=== PATIENT | female | born 1975 | race Caucasian/White ===

== ENCOUNTER 2020-06-02 17:05 | Outpatient (REF) | payer OTHER, SELFPAY ==
--- NOTE | 2020-06-02 17:12 | MM_ITS ---
EXAMINATION: MM BREAST SCREENING DIGITAL TOMOSYNTHESIS, BILATERAL CLINICAL INFORMATION: Screening. Asymptomatic. The lifetime risk of breast cancer based on the Tyrer-Cuzick Model is 30.5%. COMPARISON: Mammography: 04/16/2019 and studies dating back to 07/21/2011. TECHNIQUE: Digital breast tomosynthesis is performed in both the craniocaudal and mediolateral oblique views along with computer-aided detection (CAD). Synthesized 2D images are generated from the tomosynthesis. FINDINGS: The breasts are extremely dense, which lowers the sensitivity of mammography (ACR BI-RADS breast composition Category d). There is a stable parenchymal pattern of the left breast with no new abnormal dominant mass or suspicious grouping of microcalcifications. Within the upper outer aspect of the right breast approximately 14.0 cm from the nipple, there is a spiculated density for which further evaluation with spot compression film and possibly ultrasound is recommended. MM/MM tomosynthesis screening BI IMPRESSION: Suspicious spiculated right breast mass for further evaluation as described. ASSESSMENT: BI-RADS 0: Incomplete - Need Additional Imaging Evaluation RECOMMENDATION: 1. Additional views of the right breast 2. Targeted ultrasound if warranted after review of the additional views. 3. Radiology department staff will contact the patient for additional imaging. This patient's information was entered into a reminder system with a target due date for their next mammogram.
== END 2020-06-02 17:06 | disposition home or self-care (01) ==
LOC: HO.MAMMO 17:05
PROVIDERS: Visit Provider Internal Medicine
DX: Z12.31 Encounter for screening mammogram for malignant neoplasm of breast (principal)
CPT/HCPCS: 77063; 77067

== ENCOUNTER 2020-06-07 14:54 | Outpatient (REF) | payer OTHER, SELFPAY ==
--- NOTE | 2020-06-07 14:58 | MM_ITS ---
EXAMINATION: MM DIAGNOSTIC DIGITAL BREAST TOMOSYNTHESIS, RIGHT TARGETED RIGHT BREAST ULTRASOUND CLINICAL INFORMATION: Spiculated density upper outer quadrant. COMPARISON: Mammography: 06/02/2020 and studies dating back to 07/21/2011. TECHNIQUE: Digital breast tomosynthesis is performed. 2D images are generated from the tomosynthesis. The following views are obtained: Spot compression views right breast craniocaudal and mediolateral oblique projections. FINDINGS: The breasts are extremely dense, which lowers the sensitivity of mammography (ACR BI-RADS breast composition Category d). There is persistence of a spiculated density about the deep upper outer aspect of the right breast suspicious for possible radial scar versus sclerosing malignant process. Targeted ultrasound evaluation did not demonstrate any suspicious shadowing mass. At approximately 11 o'clock position 10 cm from nipple there is either a complex cyst or possible lymph node measuring 5 x 3 x 8 mm in size. No axillary lymphadenopathy is appreciated. Stereotactic-guided biopsy of the spiculated region is recommended. The above was discussed with the patient at time of study. Patient navigator contacted the referring provider's office with the above recommendation. MM/MM tomosynthesis added views R IMPRESSION: Suspicious right breast lesion upper outer quadrant for which stereotactic core biopsy is recommended since no definite ultrasound correlate was identified. With Tyrer-Cuzick Model value of 30.5% follow-up breast MRI may be of help in further evaluation. ASSESSMENT: BI-RADS 4: Suspicious RECOMMENDATION: Stereotactic core biopsy right breast lesion.
== END 2020-06-07 14:55 | disposition home or self-care (01) ==
LOC: HO.MAMMO 14:54
PROVIDERS: Visit Provider Internal Medicine
DX: N63.10 Unspecified lump in the right breast, unspecified quadrant (principal)
CPT/HCPCS: 76642; 77065

== ENCOUNTER 2020-06-15 09:21 | Outpatient (REF) | payer OTHER, SELFPAY ==
--- NOTE | 2020-06-15 09:27 | MM_ITS ---
EXAMINATION: STEREOTACTIC TOMOSYNTHESIS-GUIDED VACUUM-ASSISTED BREAST BIOPSY, RIGHT SPECIMEN RADIOGRAPH, RIGHT POST PROCEDURE DIGITAL MAMMOGRAM, RIGHT CLINICAL INFORMATION: Architectural distortion in the upper outer quadrant of the right breast posterior third. COMPARISON: Mammograms of 06/07/2020 and 06/02/2020. TECHNIQUE/PROCEDURE: Informed consent was obtained from the patient after discussion of the benefits, risks, and alternatives to biopsy today. Patient appeared to understand. Gave opportunity for questions. Patient signed consent form. BIOPSY TABLE: [employer] Biopsy System. LESION: Focal architectural distortion in the upper outer quadrant of the right breast, 15 cm from nipple. LOCAL ANESTHESIA: 5 mL 1% lidocaine; 10 mL 1% lidocaine with epinephrine. DERMATOTOMY: Single skin eliane dermatotomy performed. NEEDLE: [employer] 9-gauge vacuum assisted core biopsy device. APPROACH: Lateral medial TARGETING: Digital breast tomosynthesis used for targeting. CORES: 12. CLIP: [place] [employer] T-shaped marker. SPECIMEN RADIOGRAPH: Specimen radiograph is taken in separate room using digital mammography. POST PROCEDURE UNILATERAL DIGITAL MAMMOGRAM: The post biopsy mammogram is performed in separate room using separate digital mammography equipment from the biopsy procedure. 3-D tomosynthesis craniocaudal and mediolateral views are obtained. The breasts are heterogeneously dense, which may obscure small masses (breast composition category: c). The clip marker is in position. No gross hematoma. The patient tolerated the procedure well. No immediate complications. Home instructions reviewed with the patient. Final pathology results are pending. MM/MM stereotactic biopsy RT IMPRESSION: 1. Digital tomosynthesis-guided core biopsy right breast with clip placement. 2. Specimen radiograph taken and post procedure mammogram. There is satisfactory positioning of the biopsy clip. 3. Final pathology results pending. An addendum report will be issued.
== END 2020-06-15 09:22 | disposition home or self-care (01) ==
LOC: HO.MAMMO 09:21
PROVIDERS: Visit Provider Surgery
DX: D05.01 Lobular carcinoma in situ of right breast (principal)
CPT/HCPCS: 19283; 88305; 88342; A4648

== ENCOUNTER 2020-06-25 16:08 | Outpatient (REF) | payer OTHER, SELFPAY | END 2020-06-25 16:09 | disposition home or self-care (01) | LOC: HO.LNP 16:08 | PROVIDERS: Visit Provider Hospitalist | DX: Z20.828 Contact with and (suspected) exposure to other viral communicable diseases (principal) | CPT/HCPCS: U0003 ==

== ENCOUNTER 2020-06-30 06:59 | Day surgery (SDC) | payer OTHER, SELFPAY ==
[2020-06-24 19:39] VITALS: BMI 34.7
[2020-06-30] VITALS (8 sets, daily range): BP systolic 126–142; BP diastolic 82–93; PULSE 75–107; RESP 14–18; TEMP 36.2–36.7; O2SAT 95–96
[2020-06-30 07:35] LABS: UPreg QC Valid YES; Urine Pregnancy NEGATIVE (NEGATIVE)
[2020-06-30] MEDS: Lactated Ringers 1,000 ML 100 ML IVCONT (07:49)
[2020-06-30] MEDS: ceFAZolin Sodium/Dextrose,Iso 2 GM/50 ML PIGGYBACK IV (07:49)
--- NOTE | 2020-06-30 09:24 | P.CONAN_ITS ---
HPI - Anesthesia Eval Consult details Narrative: 44yo female patient here for Right breast biopsy with needle loca lization. PMFSH Past Medical History Medical History Anxiety Breast mass, right (2011) IBS (irritable bowel syndrome) Family History Family History Mother History of breast cancer Maternal Grandfather History of skin cancer Unknown History of breast cancer, Onset Age: 35 Family history of problems with anesthesia: No Surgical History Surgical History History of section History of dilatation and curettage (1999) History of tonsillectomy History of Problems with Anesthesia: No Social History Social History Alcohol intake: never Smoking Status: Never smoker Second Hand Smoke Exposure: No Use of substances other than those prescribed or required for medical reasons: No Advance Directives: No Advance Directives Information Provided: No Advance Directives on File: No Recently lost weight without trying: No Meds Allergies Allergy/AdvReac Type Severity Reaction Status Date / Time sulfamethoxazole Allergy Severe Shakiness Verified 06/30/20 07:16 [From Bactrim] trimethoprim [From Bactrim] Allergy Severe Shakiness Verified 06/30/20 07:16 duloxetine [From CYMBALTA] Allergy Intermediate TONGUE Verified 06/30/20 07:16 SORES Influenza Virus Vaccines Allergy Intermediate ARM Verified 06/30/20 07:16 [INFLUENZA VIRUS VACCINES] SWELLING Sulfa (Sulfonamide Allergy Unknown shaky Verified 06/30/20 07:16 Antibiotics) feeling Influenza Vac Typ A&B Surf Allergy Unknown redness Uncoded 06/25/20 10:29 Ant Home Medications Medication Instructions Recorded Confirmed Type dicyclomine 10 mg capsule 10 mg PO DIRECTED 06/15/20 06/25/20 History venlafaxine 75 mg capsule,extended 75 mg PO DAILY 06/15/20 06/25/20 History release 24 hr Exam Exam Date and Time: June 30, 2020 0924 Height,Weight and Vital Signs: Height 5 ft 6 in Weight 97.522 kg Last Vital Signs Temp 98.1 F 06/30/20 07:36 Pulse 85 11/18/20 07:36 Resp 16 06/30/20 07:36 BP 136/93 H 06/30/20 07:36 Pulse Ox 96 06/30/20 07:36 Pertinent Lab Results Pertinent Lab Results: Laboratory Tests 06/30/20 07:15 Urine Test NEGATIVE Airway Mallampati Class: II TM Dist: >3cm Neck ROM: Full Loose/Missing/Broken Teeth: No Heart: RRR Lungs: CTAB Assessment and Plan Assessment Anesthesia Assessment: Anesthesia Plan Discussed and Chart Reviewed Final Anesthetic Review NPO: Yes ASA Class: II Final Preanesthetic Review: No Changes in Pt Med Stat, Consent Obtained/Reviewed and Anes Risks/Benef Reviewed Patient Risk: Low Procedure Risk: Low Anesthetic Plan Anesthetic Plan: GA Disposition: Standard PACU
--- NOTE | 2020-06-30 12:34 | W.PM.OPN ---
Operative Note Operative Note Date of Service: 06/30/20 Narrative: Peroperative Diagnosis: LCIS right breast Postoperative Diagnosis: Same Procedure: Right breast biopsy with needle localization Imaging Scheduler: Cici Pineda PA-C Anesthesia: General, Laryngeal Mask Specimen: Right breast tissue Estimated Blood Loss: 10 cc Immediate Complications: None Indications: Recent history of a spiculated density on mammograms. Core biopsy revealed LCIS. Open biopsy is planned for further assessment. Procedure in detail: With the patient in the supine position after induction of adequate general anesthesia, time-out procedure was performed. 2 g of cefazolin were infused for antibiotic prophylaxis. The right breast and surrounding skin were prepped with ChloraPrep and draped sterilely. The line for incision was marked in a transverse orientation extending through the needle insertion site at approximately the 9 o'clock position laterally. Skin and subcutaneous tissues were infiltrated with local anesthetic and for anesthetic infiltration was carried out into deeper tissues. Incision was made and was carried into the subcutaneous tissues. Skin flaps were raised circumferentially at a depth of about 1 cm and a core of tissue was excised around the needle and wire to beyond its tip. The specimen was marked for margins and was sent for re-x-ray. Re-x-ray revealed that the clip was contained in the specimen. The wound was copiously irrigated with saline solution and was inspected for bleeding. Bleeding was controlled using the electrosurgical pencil. The wound was then closed using interrupted sutures of 3 0 Polysorb to reapproximate the breast tissue and the subcutaneous tissues. Skin was closed using a running subcuticular suture of 4-0 Polysorb. Steri-Strips and dry sterile dressings were applied. She tolerated the procedure well and was transported to the recovery room in stable condition. There were no immediate complications.
--- NOTE | 2020-06-30 13:09 | HO.POSTANES ---
Post Anesthesia Evaluation Post Anesthesia Evaluation Vital Signs: Vital Signs Temp Pulse Resp BP Pulse Ox 06/30/20 12:50 97.1 F 80 18 135/88 96 06/30/20 12:36 83 18 142/93 H 95 06/30/20 12:21 75 16 127/82 95 06/30/20 12:06 76 16 127/89 95 06/30/20 12:01 83 14 136/90 H 96 06/30/20 11:56 91 16 126/92 H 96 06/30/20 11:51 97.1 F 107 H 14 142/85 H 95 06/30/20 07:36 98.1 F 85 16 136/93 H 96 Anesthesia: General LMA Mental Status: Awake Pain Control: Satisfactory Nausea/Vomiting: None Hydration: Adequate Anesthesia-Related Issues: No Anes. Related Issues
== END 2020-06-30 13:22 | disposition home or self-care (01) ==
PROVIDERS: Anesthesiology; PCP Internal Medicine; Visit Provider Surgery
DX: D05.01 Lobular carcinoma in situ of right breast (principal); Z80.3 Family history of malignant neoplasm of breast; R42 Dizziness and giddiness; Z88.2 Allergy status to sulfonamides; Z88.7 Allergy status to serum and vaccine; Z88.8 Allergy status to other drugs, medicaments and biological substances
CPT/HCPCS: 19101; 19281; 81025; 88307; 88329; A4648; J0690; J1100; J2250; J2405; J3010

== ENCOUNTER → 2020-07-06 09:28 | Outpatient (BNVA) | payer OTHER, SELFPAY | PROVIDERS: PCP Internal Medicine; Visit Provider Surgery | DX: Z76.89 Persons encountering health services in other specified circumstances (principal) ==

== ENCOUNTER 2020-11-30 11:33 | Outpatient (REF) | payer OTHER, SELFPAY | END 2020-11-30 11:34 | disposition home or self-care (01) | LOC: HO.HMGCLDS 11:33 | PROVIDERS: PCP Internal Medicine; Visit Provider Internal Medicine | DX: Z20.822 Contact with and (suspected) exposure to COVID-19 (principal) | CPT/HCPCS: C9803; U0003; U0005 ==

== ENCOUNTER 2020-12-02 14:20 | Outpatient (REF) | payer OTHER, SELFPAY ==
--- NOTE | ~2020-12-02 | MM_ITS ---
EXAMINATION: MM DIAGNOSTIC DIGITAL BREAST TOMOSYNTHESIS, RIGHT CLINICAL INFORMATION: Six-month follow up for excision of LCIS in June 2020. Since patient's last mammogram she has had breast reduction surgery. COMPARISON: Mammography: 06/30/2020 and studies dating back to 12/03/2013. TECHNIQUE: Digital breast tomosynthesis is performed in both the craniocaudal and mediolateral oblique views along with computer-aided detection (CAD). Synthesized 2D images are generated from the tomosynthesis. FINDINGS: The breasts are heterogeneously dense, which may obscure small masses (ACR BI-RADS breast composition Category c). There are regions of postsurgical change noted within the right breast. No abnormal dominant mass or suspicious grouping of microcalcifications identified. Results are provided to the patient at time of visit by the technologist. MM/MM tomosynthesis diagnostic RT IMPRESSION: Postsurgical change of the right breast with no specific findings to suggest malignancy. ASSESSMENT: BI-RADS 2: Benign. RECOMMENDATION: Routine annual mammography screening due in 12 months. This patient's information was entered into a reminder system with a target due date for their next mammogram.
== END 2020-12-02 14:21 | disposition home or self-care (01) ==
LOC: HO.MAMMO 14:20
PROVIDERS: PCP Internal Medicine; Visit Provider Surgery
DX: D05.01 Lobular carcinoma in situ of right breast (principal)
CPT/HCPCS: 77061; 77065

== ENCOUNTER → 2021-02-03 10:57 | Outpatient (BNVA) | payer OTHER, SELFPAY | PROVIDERS: PCP Internal Medicine; Referring Provider Internal Medicine; Visit Provider Surgery ==

== ENCOUNTER 2021-03-16 11:09 | Outpatient (REF) | payer OTHER, SELFPAY ==
[2021-03-16 14:28] LABS: Alanine Aminotransferase 14 U/L (0-31); Anion Gap 13 (12-20); Aspartate Amino Transferase 19 U/L (5-31); Blood Urea Nitrogen 12 mg/dL (9-16); Calcium 8.8 mg/dL (8.4-10.2); Carbon Dioxide 23 mmol/L (22-29); Chloride 107 mmol/L (96-108); Cholesterol 212 mg/dL; Estimated Glomerular Filt Rate > 60; Glucose Fasting 90 mg/dL (60-99); HDL Cholesterol 58 mg/dL; LDL Cholesterol Calculated 133 mg/dl; Potassium 4.5 mmol/L (3.3-5.1); Sodium 138 mmol/L (135-145); Triglycerides 105 mg/dL
[2021-03-16 14:50] LABS: TSH reflex Free T4 1.38 uIU/mL (0.32-4.0)
== END 2021-03-16 11:10 | disposition home or self-care (01) ==
LOC: HO.HMGCLDS 11:09
PROVIDERS: PCP Internal Medicine; Visit Provider Internal Medicine
DX: Z00.00 Encounter for general adult medical examination without abnormal findings (principal); G47.9 Sleep disorder, unspecified; I10 Essential (primary) hypertension
CPT/HCPCS: 36415; 80048; 80061; 84443; 84450; 84460

== ENCOUNTER 2021-04-22 12:37 | Outpatient (REF) | payer OTHER, SELFPAY ==
[2021-04-22 14:13] LABS: Appearance Urine CLEAR; Color Urine YELLOW; Glucose Urine UA NEG (NEG); Leukocyte Esterase Urine NEG (NEG); Nitrite Urine NEG (NEG); Specific Gravity - Urine >= 1.030 (1.005-1.025); UACC Culture Trigger NO; Urine Blood TRACE (NEG); Urine Ketones NEG (NEG); Urine Protein NEG (NEG-TRACE)
[2021-04-22 14:26] LABS: Bacteria Urine TRACE /LPF; Mucus Urine TRACE /LPF; RBC Urine 0-2 /HPF (0); Squamous Epithelial Cell Urine 1+ /LPF; WBC Urine 0 /HPF (0-4)
[2021-04-22 14:27] LABS: Hematocrit 41.3 % (37-47); Hemoglobin 13.5 g/dl (12.0-16.0); Mean Corpuscular HGB Conc 32.7 g/dl (31.0-35.0); Mean Corpuscular Hemoglobin 29.7 pg (27.0-33.0); Mean Platelet Volume 10.6 fL (9.4-12.3); Platelet Count 393 X10*3/uL (160-400); Red Blood Count 4.54 X10*6/uL (4.20-5.50); White Blood Count 8.5 X10*3/uL (4.8-10.8)
[2021-04-22 15:00] LABS: Blood Urea Nitrogen 11 mg/dL (9-16); Estimated Glomerular Filt Rate > 60
== END 2021-04-22 12:38 | disposition home or self-care (01) ==
LOC: HO.HMGCLDS 12:37
PROVIDERS: PCP Internal Medicine; Visit Provider Internal Medicine
DX: R10.31 Right lower quadrant pain (principal)
CPT/HCPCS: 36415; 81001; 82565; 84520; 85027

== ENCOUNTER 2021-04-27 14:41 | Outpatient (REF) | payer OTHER, SELFPAY ==
[2021-04-28 02:04] LABS: CT PCR NOT DETECTED (Not Detect.); NG PCR NOT DETECTED (Not Detect.)
[2021-04-28 10:05] LABS: BV Int Neg Control Negative (Negative); BV Int Pos Control Positive (Positive)
== END 2021-04-27 14:42 | disposition home or self-care (01) ==
LOC: HO.LAB 14:41
PROVIDERS: PCP Internal Medicine; Visit Provider Advanced Practice Midwife
DX: Z01.419 Encounter for gynecological examination (general) (routine) without abnormal findings (principal); R10.2 Pelvic and perineal pain; Z20.2 Contact with and (suspected) exposure to infections with a predominantly sexual mode of transmission
CPT/HCPCS: 87480; 87491; 87510; 87591; 87660

== ENCOUNTER 2021-05-12 13:47 | Outpatient (REF) | payer OTHER, SELFPAY ==
--- NOTE | ~2021-05-12 | US_ITS ---
EXAMINATION: US PELVIS CLINICAL INFORMATION: Pain COMPARISON: Previous CT of the abdomen and pelvis July 2013 TECHNIQUE: Transabdominal pelvic ultrasound. Patient declined transvaginal exam. Exam is limited due to patient body habitus. FINDINGS: The uterus is not well visualized. The uterus is anteverted and measures 10.2 x 5.2 x 5.2 cm. No focal uterine lesion is seen. Endometrial thickness is normal measuring 0.7 cm. The ovaries are normal-appearing. The right ovary measures 2.3 x 1.8 x 1.4 cm. The left ovary measures 2.2 x 1.5 x 1.3 cm. There is no fluid in the pelvis. US/US pelvic complete IMPRESSION: Limited but unremarkable exam.
== END 2021-05-12 13:48 | disposition home or self-care (01) ==
LOC: HO.US 13:47
PROVIDERS: PCP Internal Medicine; Visit Provider Advanced Practice Midwife
DX: R10.2 Pelvic and perineal pain (principal)
CPT/HCPCS: 76856

== ENCOUNTER 2021-05-20 07:44 | Outpatient (REF) | payer OTHER, SELFPAY ==
--- NOTE | ~2021-05-20 | CT_ITS ---
EXAMINATION: CT PELVIS WITH CONTRAST CLINICAL INFORMATION: Right lower quadrant pain COMPARISON: Previous pelvic ultrasound 05/12/[address] of the abdomen and pelvis July 2013 TECHNIQUE: Helical scanning was performed with submillimeter collimation through the pelvis with the use of oral contrast and during bolus intravenous injection of 85 mL of Omnipaque 350 intravenous contrast. Sagittal and coronal multiplanar 2-D reconstructions were obtained. This CT examination was performed using dose optimization techniques as appropriate, variously including the following: *Automated exposure control *Adjustment of mA and/or kV according to patient size (this includes techniques or standardized protocols for targeted exams where dose is matched to indication/reason for exam; i.e. extremities or head) *Use of iterative reconstruction technique DLP: 591 mGy-cm FINDINGS: There is mild diverticulosis of the colon. Visualized small and large bowel is otherwise unremarkable. There is no evidence of diverticulitis. The appendix is normal. There are postsurgical changes to the anterior abdominal wall. There is increased attenuation seen in the right medial rectus muscle. This area measures 1.3 x 2 x 2.2 cm in AP transverse and longitudinal dimension axial image 28 series 2, sagittal reconstructed image 90 and coronal reconstructed image 33. It is uncertain whether this could represent a small right rectus muscle hematoma. Rectus muscle lesion should also be considered. This is a new finding from July 2013 No hernia is seen. The uterus and adnexa are unremarkable. The bladder is unremarkable. No ascites or adenopathy is seen. There is a 1 cm sclerotic lesion in the left acetabulum that is stable and probably represents a benign bone island. Bony structures are otherwise unremarkable. CT/CT pelvis w con IMPRESSION: Postsurgical changes to the anterior abdominal wall. High attenuation area in the medial right rectus muscle measuring 1.3 x 2 x 2.2 cm. This may represent a hematoma. Soft tissue muscle mass cannot be occluded. This is a new finding from July 2013 CT scan.
[2021-05-20] MEDS: iohexoL 350 MG/ML 100 ML INFUS..BTL 85 ML IV (08:19)
== END 2021-05-20 07:45 | disposition home or self-care (01) ==
LOC: HO.CT 07:44
PROVIDERS: Visit Provider Internal Medicine
DX: R10.31 Right lower quadrant pain (principal)
CPT/HCPCS: 72193; Q9967

== ENCOUNTER → 2021-05-31 11:12 | Outpatient (BNVA) | payer OTHER, SELFPAY | PROVIDERS: Visit Provider Advanced Practice Midwife ==

== ENCOUNTER 2021-06-23 08:58 | Outpatient (REF) | payer OTHER, SELFPAY ==
--- NOTE | ~2021-06-23 | US_ITS ---
EXAMINATION: US ABDOMEN LIMITED CLINICAL INFORMATION: Nonspecific mass lower right rectus muscle on CT. Follow-up.. COMPARISON: CT pelvis 05/20/2021 and 07/29/2013 TECHNIQUE: Real-time linear ultrasound is targeted to the lower right rectus muscle using grayscale imaging and color Doppler. FINDINGS: The nonspecific mass in the lower right parasagittal rectus muscle is again demonstrated. The margins are lobulated and the internal echogenicity is heterogeneous hypoechoic. Overall dimensions are 1.5 x 2.5 x 3.5 cm. Dimensions on recent CT are approximately 1.3 x 2.0 x 2.2 cm. There is some scattered vascular flow noted on color Doppler within the lesion. US/US abdomen limited IMPRESSION: Persistent nonspecific mass within lower right parasagittal rectus muscle with overall dimensions 1.5 x 2.5 x 3.5 cm. There is scattered color-flow within the lesion suggesting soft tissue mass rather than a hematoma.
== END 2021-06-23 08:59 | disposition home or self-care (01) ==
LOC: HO.HMGCX 08:58
PROVIDERS: PCP Internal Medicine; Visit Provider Internal Medicine
DX: S30.1XXA Contusion of abdominal wall, initial encounter (principal)
CPT/HCPCS: 76705

== ENCOUNTER 2021-07-04 14:47 | Outpatient (REF) | payer OTHER, SELFPAY | END 2021-07-04 14:48 | disposition home or self-care (01) | LOC: HO.MAMMO 14:47 | PROVIDERS: Visit Provider Internal Medicine | DX: Z13.89 Encounter for screening for other disorder (principal) ==

== ENCOUNTER 2021-07-13 14:45 | Outpatient (REF) | payer OTHER, SELFPAY ==
--- NOTE | ~2021-07-13 | MM_ITS ---
EXAMINATION: MM SCREENING DIGITAL BREAST TOMOSYNTHESIS, BILATERAL CLINICAL INFORMATION: Screening. Asymptomatic. Right LCIS status post excision 06/30/2020. Bilateral reduction mammoplasty. The lifetime risk of breast cancer based on the Tyrer-Cuzick Model is 56%. COMPARISON: Mammography: 12/02/2020, 06/30/2020, 06/15/2020, 06/07/2020, 06/02/2020 TECHNIQUE: Digital breast tomosynthesis is performed in both the craniocaudal and mediolateral oblique views along with computer-aided detection (CAD). Synthesized 2D images are generated from the tomosynthesis. FINDINGS: There are scattered areas of fibroglandular density (ACR BI-RADS breast composition Category b). There is minor bilateral scarring and reduced breast size consistent with the reduction mammoplasty. No significant mass or architectural abnormality. No abnormal calcifications. The axilla are unremarkable. MM/MM tomosynthesis screening BI IMPRESSION: No mammographic evidence of malignancy. ASSESSMENT: BI-RADS 2: Benign RECOMMENDATION: 1. Routine annual mammography screening. 2. The lifetime risk of breast cancer based on the Tyrer-Cuzick Model is 56%. Additional annual adjunct screening with breast MRI may be of benefit in women with a risk score of 20% or greater. This patient's information was entered into a reminder system with a target due date for their next mammogram.
== END 2021-07-13 14:46 | disposition home or self-care (01) ==
LOC: HO.MAMMO 14:45
PROVIDERS: Visit Provider Internal Medicine
DX: Z12.31 Encounter for screening mammogram for malignant neoplasm of breast (principal)
CPT/HCPCS: 77063; 77067

== ENCOUNTER → 2021-08-11 15:21 | Outpatient (BNVA) | payer OTHER, SELFPAY | PROVIDERS: PCP Internal Medicine; Referring Provider Internal Medicine; Visit Provider Surgery ==

== ENCOUNTER 2021-09-15 11:11 | Outpatient (REF) | payer OTHER, SELFPAY ==
[2021-09-15 11:59] LABS: Appearance Urine TURBID; Color Urine YELLOW; Glucose Urine UA NEG (NEG); Leukocyte Esterase Urine 1+ (NEG); Nitrite Urine NEG (NEG); PH 6.5 (5.0-8.0); Specific Gravity - Urine 1.025 (1.005-1.025); UACC Culture Trigger YES; Urine Blood 3+ (NEG); Urine Ketones 5 MG/DL (NEG); Urine Protein 1+ MG/DL (NEG-TRACE)
[2021-09-15 12:54] LABS: RBC Urine 30-49 /HPF (0); Squamous Epithelial Cell Urine 2+ /LPF; WBC Urine 30-49 /HPF (0-4)
[2021-09-15 12:55] LABS: Mucus Urine 1+ /LPF
== END 2021-09-15 11:12 | disposition home or self-care (01) ==
LOC: HO.LNP 11:11
PROVIDERS: Visit Provider Physician Assistant Medical
DX: N39.0 Urinary tract infection, site not specified (principal)
CPT/HCPCS: 81001; 81003; 87086

== ENCOUNTER 2022-01-30 13:47 | Outpatient (REF) | payer OTHER, SELFPAY ==
[2022-01-30 16:36] LABS: MANUAL DIFF FLAG NO
[2022-01-30 16:40] LABS: Basophils Percent Auto 0.3 % (0-2); Eosinophils Absolute Auto 0.1 X10*3/uL (0.0-0.4); Eosinophils Percent Auto 0.9 % (0-4); Hemoglobin 14.5 g/dl (12.0-16.0); Imm Gran Abs Auto 0.03 X10*3/uL (0.00-0.03); Imm Gran Pct Auto 0.4 % (0.0-0.4); Lymphocytes Absolute Auto 2.1 X10*3/uL (1.2-4.9); Lymphocytes Percent Auto 26.7 % (20-40); Mean Corpuscular HGB Conc 33.7 g/dl (31.0-35.0); Mean Corpuscular Hemoglobin 30.8 pg (27.0-33.0); Mean Corpuscular Volume 91.3 fL (80.0-98.0); Mean Platelet Volume 10.8 fL (9.4-12.3); Monocytes Absolute Auto 0.7 X10*3/uL (0.1-1.2); Monocytes Percent Auto 8.9 % (2-11); Neutrophils Absolute Auto 4.9 x10*3/uL (2.0-8.3); Neutrophils Percent Auto 62.8 % (45-73); Platelet Count 363 X10*3/uL (160-400); Red Blood Count 4.71 X10*6/uL (4.20-5.50); White Blood Count 7.7 X10*3/uL (4.8-10.8)
[2022-01-30 16:48] LABS: Glucose Fasting 91 mg/dL (60-99)
[2022-01-30 17:14] LABS: TSH reflex Free T4 1.43 uIU/mL (0.32-4.0)
== END 2022-01-30 13:48 | disposition home or self-care (01) ==
LOC: HO.HMGCLDS 13:47
PROVIDERS: Visit Provider Internal Medicine
DX: R42 Dizziness and giddiness (principal)
CPT/HCPCS: 36415; 82947; 84443; 85025

== ENCOUNTER → 2022-05-03 14:14 | Outpatient (BNVA) | payer OTHER, SELFPAY | PROVIDERS: PCP Internal Medicine; Visit Provider Advanced Practice Midwife | DX: Z01.419 Encounter for gynecological examination (general) (routine) without abnormal findings (principal); Z32.02 Encounter for pregnancy test, result negative; N92.6 Irregular menstruation, unspecified | CPT/HCPCS: 81025 ==

== ENCOUNTER 2022-07-17 15:47 | Outpatient (REF) | payer OTHER, SELFPAY ==
--- NOTE | ~2022-07-17 | MM_ITS ---
EXAMINATION: MM SCREENING DIGITAL BREAST TOMOSYNTHESIS, BILATERAL CLINICAL INFORMATION: Screening. Asymptomatic. Right LCIS status post excision 06/30/2020. Prior bilateral reduction mammoplasty. COMPARISON: Mammography: 07/13/2021, 12/02/2020, 06/30/2020, 06/15/2020, 06/07/2020, 06/02/2020, 06/02/2020, 04/16/2019 TECHNIQUE: Digital breast tomosynthesis is performed in both the craniocaudal and mediolateral oblique views along with computer-aided detection (CAD). Synthesized 2D images are generated from the tomosynthesis. FINDINGS: There are scattered areas of fibroglandular density (ACR BI-RADS breast composition Category b). Breast tissue composition borders on heterogeneously dense. There is minor scarring and scattered punctate round and rim calcifications consistent with the reduction mammoplasty. There is no significant mass or interval architectural abnormality or abnormal calcifications. The axilla are unremarkable. No significant changes from prior studies. MM/MM tomosynthesis screening BI IMPRESSION: No mammographic evidence of malignancy. ASSESSMENT: BI-RADS 2: Benign RECOMMENDATION: Routine annual mammography screening. This patient's information was entered into a reminder system with a target due date for their next mammogram.
== END 2022-07-17 15:48 | disposition home or self-care (01) ==
LOC: HO.MAMMO 15:47
PROVIDERS: PCP Internal Medicine; Visit Provider Internal Medicine
DX: Z12.31 Encounter for screening mammogram for malignant neoplasm of breast (principal)
CPT/HCPCS: 77063; 77067

== ENCOUNTER 2022-07-28 10:54 | Outpatient (REF) | payer OTHER, SELFPAY ==
[2022-07-28 14:31] LABS: Hemoglobin 14.2 g/dl (12.0-16.0); Mean Corpuscular Hemoglobin 30.5 pg (27.0-33.0); Mean Corpuscular Volume 92.3 fL (80.0-98.0); Mean Platelet Volume 10.6 fL (9.4-12.3); Platelet Count 412 X10*3/uL (160-400); Red Blood Count 4.66 X10*6/uL (4.20-5.50)
[2022-07-28 15:08] LABS: Alanine Aminotransferase 39 U/L (0-31); Anion Gap 11 (12-20); Aspartate Amino Transferase 33 U/L (5-31); Blood Urea Nitrogen 12 mg/dL (9-16); Carbon Dioxide 25 mmol/L (22-29); Chloride 107 mmol/L (96-108); Cholesterol 206 mg/dL; Estimated Glomerular Filt Rate > 60; Glucose Fasting 94 mg/dL (60-99); HDL Cholesterol 48 mg/dL; LDL Cholesterol Calculated 135 mg/dl; Potassium 4.3 mmol/L (3.3-5.1); Sodium 139 mmol/L (135-145); Triglycerides 119 mg/dL; Vitamin D 25-OH Total 22.1 ng/mL (>30)
== END 2022-07-28 10:55 | disposition home or self-care (01) ==
LOC: HO.HMGCLDS 10:54
PROVIDERS: Absent Provider Advanced Practice Midwife; PCP Internal Medicine; Visit Provider Internal Medicine
DX: E66.9 Obesity, unspecified (principal); N92.0 Excessive and frequent menstruation with regular cycle
CPT/HCPCS: 36415; 80048; 80061; 82306; 84450; 84460; 85027

== ENCOUNTER 2023-05-04 15:01 | Outpatient (AMB) | payer OTHER, SELFPAY ==
--- NOTE | 2023-05-04 15:04 | MHC.OFFVIS ---
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 Scribed for KEYLA Dickens by Flori Winkler medical biller coder, on 05/04/2023 at 3:40 pm EST. Marine Welder Required: No Information Interpreted: non-clinical & clinical Furnace Brazer: Furnace Brazer Present (Leah ASHLEY) Accompanied by: Self / Same As Patient Allergies duloxetine [From CYMBALTA] Allergy (Intermediate, Verified 05/04/23 15:12) TONGUE SORES Influenza Virus Vaccines [INFLUENZA VIRUS VACCINES] Allergy (Intermediate, Verified 05/04/23 15:12) ARM SWELLING Sulfa (Sulfonamide Antibiotics) Adverse Reaction (Unknown, Verified 05/04/23 15:12) shaky feeling bactrim Allergy (Mild, Uncoded 05/04/23 15:12) Palpitations Is last menstrual period known: Yes Last menstrual period: 04/20/23 HPI HPI Comments History of Present Illness Details She is a premenopausal woman presenting for annual exam. 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 Patient admits she tries to eat a healthy diet including Calcium and Vitamin D. She stays active with exercise. Reports hair loss and is taking biotin which is improving hair growth. Currently not sexually active. Denies vaginal itching and irritation. STD screening offered; she accepts. Denies family hx of colon and ovarian cancer. Last pap smear 02/27/19. Last mammogram 07/17/22. UTD on colonoscopy. 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) of right breast IBS (irritable bowel syndrome) Anxiety Surgical History H/O abdominoplasty (02/11/21) History of bilateral breast reduction surgery (07/21/20) History of dilatation and curettage (1999) History of tonsillectomy History of section Family History Mother History of breast cancer Mental health disorder Maternal Grandfather History of skin cancer Unknown History of breast cancer, Onset Age: 35 Paternal Grandmother Diabetes Social History Household Members: Spouse and Children Housing: House Alcohol intake: never Patient Tobacco Use Status: Former Tobacco user Years Smoked: 10 yrs e-Cigarette/Vaping Use: Never Used Second Hand Smoke Exposure: No service: No Current occupational status: employed 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 occupational exposures/hazards: No Sexual orientation: Straight/Heterosexual Gender identity: Female Cognitive needs: No Hearing needs: No Vision needs: Yes Female Reproductive History Menstrual Age of Menarche: 11 Duration of menses: 3-5 days Date of last menstrual period: 04/20/23 control method: other (vasectomy) Total pregnancies: 3 Full term: 2 Number of Living Children: 2 Ab spontaneous: 1 Date of last pap smear: 02/27/19 Date of Mammogram: 07/17/22 Physical Exam Vital Signs: Last Vital Signs BP 110/72 05/04/23 15:11 BMI result Body Mass Index 33.2 Const General: cooperative, healthy appearing, no acute distress, well developed and alert Orientation/consciousness: patient oriented x3 HEENT Head: Yes normal to inspection Eyes General: appearance normal, both eyes and all related structures Neck Neck: Yes normal visual inspection Thyroid: Thyroid normal Chest Other: breast reconstruction surgery scarring Chest palpation & inspection: normal inspection of the chest Breast/axilla inspection: normal inspection of the breasts (no puckering, dimpling, peau de orange, retraction, discharge, masses) Breast/axilla palpation: normal palpation of the breasts Resp Effort & Inspection: normal respiratory effort GI Inspection: Yes normal to inspection Palpation (GI): Soft to palpation (to palpation) Rectal Exam - Female: deferred Other: abdominoplasty scarring General: Yes bladder normal to inspection External Female Exam: normal external appearance and normal appearance of the urethra Speculum Exam - Vagina: normal appearance of the vagina, normal palpation and normal vaginal discharge Speculum Exam - Cervix: normal appearance of the cervix and normal palpation Bimanual exam- vagina & uterus: normal palpation and normal palpation Bimanual Exam- Adnexa, other: normal adnexae and no masses Skin General skin exam: no rashes or lesions noted Neuro General: patient oriented x3 Cognition (Neuro): normal cognition Extrem General: Yes normal to inspection Psych Attitude: cooperative Thought process: Normal thought process present Assessment & Plan Assessment & Plan (1) Encounter for well woman exam: Code(s): Z01.419 - Encounter for gynecological examination (general) (routine) without abnormal findings Plan: Discussed: Current recommendations for pap smears per ASCCP guidelines. Breast awareness and periodic self breast exams. Maintaining a healthy lifestyle including a well balanced diet and routine exercise. Monitor periods, report any unscheduled bleeding, bleeding episodes less than 21 days apart or heavy prolonged menstrual bleeding. All of her questions and concerns were addressed to the best of my ability. RTO in one year for AG. Coding Level of Care Code Est Pt Prev Care 40-64y(70998) Diagnoses Encounter for well woman exam Z01.419
[2023-05-04 15:11] VITALS: BP 110/72; BMI 33.2
== END 2023-05-04 15:49 | disposition home or self-care (01) ==
PROVIDERS: Visit Provider Advanced Practice Midwife
DX: Z01.419 Encounter for gynecological examination (general) (routine) without abnormal findings (principal)
CPT/HCPCS: 99396

== ENCOUNTER → 2023-05-04 15:01 | Outpatient (BNVA) | payer OTHER, SELFPAY | PROVIDERS: Visit Provider Advanced Practice Midwife ==

== ENCOUNTER 2023-05-22 16:21 | Outpatient (AMB) | payer OTHER, SELFPAY ==
--- NOTE | 2023-05-22 16:36 | MHC.OFFWIV ---
Intake Vital Signs 05/22/23 16:37 Weight 208 lb BP 118/80 Blood Pressure Location Rt brachial Position Sitting Pulse 93 Pulse Source Pulse Oximeter Temp 98.2 F Temp Source Oral Pulse Oximetry (%) 97 Oxygen Delivery Method Room Air Intake Visit Reasons: EP, chest congestion (masked) Intake Note: Patient here for chest congestion, sob and cough that has been present for about 4 weeks. she states it started off as a cold and was treating it with otc meds and was helping for some time and then came back. Patient Tobacco Use Status: Former Tobacco user Allergies duloxetine [From CYMBALTA] Allergy (Intermediate, Verified 05/22/23 16:53) TONGUE SORES Influenza Virus Vaccines [INFLUENZA VIRUS VACCINES] Allergy (Intermediate, Verified 05/22/23 16:53) ARM SWELLING Sulfa (Sulfonamide Antibiotics) Adverse Reaction (Unknown, Verified 05/22/23 16:53) shaky feeling bactrim Allergy (Mild, Uncoded 05/22/23 16:53) Palpitations Medication List - Last Reconciled 05/22/23 by Gregory Patricio MD biotin 1,000 mcg PO DAILY multivitamin 1 tab PO DAILY valacyclovir (Valtrex) 2,000 mg (2 x 1 gram) PO Q12H PRN venlafaxine ER 75 mg PO DAILY Do you need a note to return to daycare/school/sports/work: No HPI EP, chest congestion (masked) HPI Details Patient presents for a sick visit. Reporting symptoms of sinus congestion, sore throat and difficulty swallowing. Low-grade fever. No family member is sick. No recent travel. Patient reports symptoms of malaise and fatigue. 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 Lobular carcinoma in situ (LCIS) of right breast IBS (irritable bowel syndrome) Anxiety Surgical History H/O abdominoplasty (02/11/21) History of bilateral breast reduction surgery (07/21/20) History of dilatation and curettage (1999) History of tonsillectomy History of section Family History Mother History of breast cancer Mental health disorder Maternal Grandfather History of skin cancer Unknown History of breast cancer, Onset Age: 35 Paternal Grandmother Diabetes Social History Household Members: Spouse and Children Housing: House Alcohol intake: never Patient Tobacco Use Status: Former Tobacco user Years Smoked: 10 yrs e-Cigarette/Vaping Use: Never Used Second Hand Smoke Exposure: No service: No Current occupational status: employed 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 occupational exposures/hazards: No Sexual orientation: Straight/Heterosexual Gender identity: Female Cognitive needs: No Hearing needs: No Vision needs: Yes Female Reproductive History Menstrual Age of Menarche: 11 Physical Exam Vital Signs: Last Vital Signs Temp 98.2 F 05/22/23 16:37 Pulse 93 05/22/23 16:37 BP 118/80 05/22/23 16:37 Pulse Ox 97 05/22/23 16:37 Oxygen Delivery Method Room Air 05/22/23 16:37 Const General: cooperative and healthy appearing Nutritional Appearance: well nourished Orientation/consciousness: patient oriented x3 Limitations: no limitations HEENT Head: Yes normal to inspection Eyes General: appearance normal, both eyes and all related structures Neck Neck: Yes normal visual inspection Chest Chest palpation & inspection: normal palpation of entire chest wall Resp Effort & Inspection: normal respiratory effort Neuro General: patient oriented x3 Assessment & Plan Assessment & Plan (1) Upper respiratory tract infection: Code(s): J06.9 - Acute upper respiratory infection, unspecified Plan Antibiotics ordered. Increase fluid intake. Tylenol for aches and pains. If symptoms worsen, follow-up here for a recheck. Orders: Orders AMB Rapid Strep Screen Today Z13.9 - Encounter for screening, unspecified Coding Level of Care Code Est Pt Level 4 (60382) Diagnoses Upper respiratory tract infection J06.9
[2023-05-22 16:37] VITALS: BP 118/80; PULSE 93; TEMP 36.8; O2SAT 97
== END 2023-05-22 16:56 | disposition home or self-care (01) ==
PROVIDERS: PCP Internal Medicine; Visit Provider Internal Medicine
DX: J06.9 Acute upper respiratory infection, unspecified (principal); J02.9 Acute pharyngitis, unspecified
CPT/HCPCS: 87880; 99214

== ENCOUNTER 2023-05-24 16:03 | Outpatient (REF) | payer OTHER, SELFPAY ==
--- NOTE | ~2023-05-24 | XR_ITS ---
EXAMINATION: XR CHEST CLINICAL INFORMATION: Cough. COMPARISON: None available. TECHNIQUE: 2 views of the chest were obtained. FINDINGS: The cardiomediastinal silhouette is normal. There is no focal lung consolidation or pleural effusion. The bony structures and soft tissues are unremarkable. XR/XR chest 2V IMPRESSION: No active cardiopulmonary disease.
== END 2023-05-24 16:04 | disposition home or self-care (01) ==
LOC: HO.HMGCX 16:03
PROVIDERS: PCP Internal Medicine; Visit Provider Internal Medicine
DX: R05.9 Cough, unspecified (principal)
CPT/HCPCS: 71046

== ENCOUNTER 2023-08-02 13:48 | Outpatient (AMB) | payer OTHER, SELFPAY ==
[2023-08-02 13:59] VITALS: BP 120/86; PULSE 89; O2SAT 98; BMI 34.5
--- NOTE | 2023-08-02 13:59 | MHC.PC.OV ---
Vital Signs 08/02/23 13:59 Height 5 ft 6 in Weight 214 lb BMI 34.5 BP 120/86 Blood Pressure Location Lt brachial Position Sitting Pulse 89 Pulse Source Pulse Oximeter Pulse Oximetry (%) 98 Oxygen Delivery Method Room Air Intake Visit Reasons: Annual PE Intake Note: Pt is here for her Annual PE Is last menstrual period known: Yes Last menstrual period: 05/18/23 Allergies duloxetine [From CYMBALTA] Allergy (Intermediate, Verified 08/02/23 14:30) TONGUE SORES Influenza Virus Vaccines [INFLUENZA VIRUS VACCINES] Allergy (Intermediate, Verified 08/02/23 14:30) ARM SWELLING Sulfa (Sulfonamide Antibiotics) Adverse Reaction (Unknown, Verified 08/02/23 14:30) shaky feeling bactrim Allergy (Mild, Uncoded 08/02/23 14:30) Palpitations Medication List - Last Reconciled 08/02/23 by Nikia Rojas MD biotin 250 mcg PO DAILY multivitamin 1 tab PO DAILY valacyclovir (Valtrex) 2,000 mg (2 x 1 gram) PO Q12H PRN venlafaxine ER 75 mg PO DAILY Tobacco use date assessed: 08/02/23 Dental Screening Dental Screen Date: 08/02/23 Did you have a dental visit in the last 12 months?: Yes Did you have a dental problem in the last 6 months where you did not have access to dental care?: No Was dental information given to patient?: Patient has dentist HPI Annual PE HPI Details 47-year-old lady here today for physical exam. Has anxiety disorder currently on venlafaxine. She has history of lobular carcinoma in Situ of the right breast, with diagnosed in 2019 after undergoing stereotactic guided core biopsy. She declined endocrine therapy for risk reduction as well as yearly breast MRIs due to her claustrophobia. She underwent bilateral breast reduction surgery Dr. Soni on 07/06/2020. Currently follows with Dr. Diane every 6 months for her breast examination. Has an appointment already scheduled for screening mammogram later this month. Goes to [facility] for her routine Pap and pelvic exam, last Pap was done in 2018. Up-to-date with her colon cancer screening, had a negative Cologuard test in 2021. 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 Lobular carcinoma in situ (LCIS) of right breast IBS (irritable bowel syndrome) Anxiety Surgical History H/O abdominoplasty (02/11/21) History of bilateral breast reduction surgery (07/21/20) History of dilatation and curettage (1999) History of tonsillectomy History of section Family History Mother History of breast cancer Mental health disorder Maternal Grandfather History of skin cancer Unknown History of breast cancer, Onset Age: 35 Paternal Grandmother Diabetes Social History Household Members: Spouse and Children Housing: House Alcohol intake: never Patient Tobacco Use Status: Former Tobacco user Years Smoked: 10 yrs e-Cigarette/Vaping Use: Never Used Second Hand Smoke Exposure: No service: No Current occupational status: employed 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 1. Little interest or pleasure in doing things: several days 2. Feeling down, depressed, or hopeless: not at all 3. Trouble falling or staying asleep, or sleeping too much: not at all 4. Feeling tired or having little energy: not at all 5. Poor appetite or overeating: not at all 6. Feeling bad about yourself - or that you are a failure or have let yourself or your family down: not at all 7. Trouble concentrating on things, such as reading the newspaper or watching television: not at all 8. Moving or speaking so slowly that other people could have noticed. Or the opposite - being so fidgety or restless that you have been moving around a lot more than usual: not at all 9. Thoughts that you would be better off or of hurting yourself in some way: not at all Total score: 1 Depression Screening Interpretation: Negative Depression Screening Done: Yes 55656 - PHQ-9 Billing: Yes Source: Developed by Drs. Chico Botello, Boezna Schumacher, Ulises Lucas and colleagues, with an educational mahendra from [employer]. Thrive Questionnaire Date Thrive assessed: 08/02/23 I am a: Patient What is your living situation today?: I have a steady place to live Within the past 12 months, did the food you bought not last and you didn't have the money to get more?: Never true Within the past 12 months, did you worry whether your food would run out before you got money to buy more?: Never true Do you have trouble paying for medicines?: No Do you have trouble getting transportation to medical appointments?: No Do you have trouble paying your heating and electricity bill?: No Do you have trouble taking care of your child, family member or friend?: No Do you have trouble with day-to-day activities such as bathing, preparing meals, shopping, managing finances, etc.?: No Are you currently unemployed and looking for a job?: No Are you interested in more education?: No AUDIT C Alcohol Use Questionnaire (AUDIT-C) 1. How often do you have a drink containing alcohol?: Never Total Score: 0 MILAGRO-7 AMB Questionnaire MILAGRO-7 Date MILAGRO - 7 assessed: 08/02/23 Feeling nervous, anxious, or on edge: 0 = Not at all Not being able to stop or control worryin = Several days Worrying too much about different things: 1 = Several days Trouble relaxin = Not at all Being so restless that it is hard to sit still: 0 = Not at all Becoming easily annoyed or irritable: 1 = Several days Feeling afraid as if something awful might happen: 1 = Several days Total MILAGRO-7 score (0-4 normal; 5-9 mild; 10-14 moderate; 15-21 severe): 4 Source: Developed by Drs. Chico Botello, Bozena Schumacher, Ulises Lucas and colleagues, with an educational mahendra from [employer]. MILAGRO-7 Assessment Billing MILAGRO-7 Assessment Tool: MILAGRO-7 Assessment 48459 Review of Systems Const Denies body aches, Denies fever(s), Denies headache(s) and Denies weakness Eyes Denies change in vision ENT Denies headache(s), Denies nasal congestion, Denies nasal discharge and Denies sore throat Card Denies chest pain and Denies dyspnea Resp Denies chest congestion, Denies cough and Denies dyspnea GI Denies abdominal pain, Denies change in bowel habits and Denies heartburn Reports no additional complaints Musc Reports stiffness Skin/Breast Reports as per HPI Neuro Denies headache(s) and Denies weakness Psych Reports as per HPI Endo Reports no additional complaints Juan/Lymph Reports no additional complaints Aller/Immun Reports no additional complaints Physical exam (Primary Care) Vital Signs: Last Vital Signs Pulse 89 08/02/23 13:59 BP 120/86 08/02/23 13:59 Pulse Ox 98 08/02/23 13:59 Oxygen Delivery Method Room Air 08/02/23 13:59 BMI result Body Mass Index 34.5 BMI Assessment/Plan discussion: High BMI High, discussed plan: lifestyle, weight reduction, dietary and physical activity Tobacco/Smoking Status: Tobacco use Status Tobacco use date assessed 08/02/23 08/02/23 14:04 Patient Tobacco Use Status Former Tobacco user 08/02/23 14:01 e-Cigarette/Vaping Use Never Used 08/02/23 14:01 PHQ-9: PHQ-9 Score PHQ-9: Total score 1 08/02/23 14:34 Depression Screening Interpretation: Negative Thrive Assessment: Date of Thrive Assessment Date Thrive assessed 08/02/23 08/02/23 14:16 Const General: no acute distress Orientation/consciousness: patient oriented x3 HENMT Head: Yes normal to inspection Ears: hearing grossly normal bilaterally, external ears normal, TM's normal bilaterally and EAC's normal Mouth: Normal oral and palatal mucosa present Eyes General: appearance normal, both eyes and all related structures Neck Neck: Yes no lymphadenopathy, Yes no meningeal signs and Yes supple Chest Breast/axilla palpation: normal palpation of the breasts Resp Effort & Inspection: normal respiratory effort Auscultation: clear to auscultation bilaterally Cardio Rhythm: regular rhythm Heart sounds: S1 normal heart sound present and S2 normal heart sound present GI Palpation (GI): Soft to palpation Auscultation: normal bowel sounds General: Yes no CVA tenderness and Yes deferred (Followed by OBGYN) Back/Spine/Pelvis Back: no CVA tenderness and No back tenderness Skin General skin exam: no rashes or lesions noted Neuro General: patient oriented x3, gait normal, tone normal, moves all extremities, Normal light touch and pain sensation, no meningeal signs, no focal motor deficits and CN's II-XI intact bilaterally Extrem Other: Thrombosed varicose vein noted above right popliteal area, nontender to palpation, superficial varicosities noted in both lower extremities extending from thigh to calf General: Yes full ROM, Yes no joint enlargement, Yes no pedal edema, Yes no calf tenderness and Yes normal gait Psych Appearance: grossly normal and well kempt Mental Status: mental status grossly normal Speech and movement: Normal speech and movement present Affect: normal affect Attitude: cooperative Thought process: Normal thought process present Assessment and Plan Assessment & Plan (1) Annual visit for general adult medical examination with abnormal findings: Code(s): Z00.01 - Encounter for general adult medical examination with abnormal findings Plan: Will check appropriate labs. Continue regular dental visit every 6 months and regular eye exams, at least every 2 years. Take adequate calcium in diet and vitamin-D 3 at 2000 IU per cap once a day, in addition to weight-bearing exercises to help maintain good muscle tone and weight control. Instructed to do self-breast exam, and continue to get yearly mammogram, has an appointment scheduled already for this month. She sees [facility] for her routine Pap and pelvic exam. Up-to-date with her colon cancer screening, had a negative Cologuard in 2021 patient declined to get any further vaccinations at present time (2) Hair loss: Code(s): L65.9 - Nonscarring hair loss, unspecified Plan: Takes Biotin supplements which has been helping (3) Anxiety: Code(s): F41.9 - Anxiety disorder, unspecified Plan: Continued on venlafaxine Orders: Orders Complete Blood Count Auto Diff 08/07/23 F41.9 - Anxiety disorder, unspecified, L65.9 - Nonscarring hair loss, unspecified, Z00.01 - Encounter for general adult medical examination with abnormal findings Comprehensive Hardesty. Panel Fast 08/07/23 F41.9 - Anxiety disorder, unspecified, L65.9 - Nonscarring hair loss, unspecified, Z00.01 - Encounter for general adult medical examination with abnormal findings TSH reflex Free T4 08/07/23 F41.9 - Anxiety disorder, unspecified, L65.9 - Nonscarring hair loss, unspecified, Z00.01 - Encounter for general adult medical examination with abnormal findings Vitamin B12 and Folate 08/07/23 F41.9 - Anxiety disorder, unspecified, L65.9 - Nonscarring hair loss, unspecified, Z00.01 - Encounter for general adult medical examination with abnormal findings Vitamin D 25-OH Total 08/07/23 F41.9 - Anxiety disorder, unspecified, L65.9 - Nonscarring hair loss, unspecified, Z00.01 - Encounter for general adult medical examination with abnormal findings Lipid Panel 08/07/23 F41.9 - Anxiety disorder, unspecified, L65.9 - Nonscarring hair loss, unspecified, Z00.01 - Encounter for general adult medical examination with abnormal findings Review Flu Vaccine not done: patient reason (Declined) Coding Level of Care Code Est Pt Prev Care 40-64y(12647) Diagnoses Annual visit for general adult medical examination with abnormal findings Z00.01 Hair loss L65.9 Anxiety F41.9 Additional Codes MILAGRO-7 Assessment Billing - MILAGRO-7 Assessment Tool: MILAGRO-7 Assessment 47728 ([id number])
== END 2023-08-02 14:48 | disposition home or self-care (01) ==
PROVIDERS: Visit Provider Internal Medicine
DX: Z00.00 Encounter for general adult medical examination without abnormal findings (principal); L65.9 Nonscarring hair loss, unspecified; F41.9 Anxiety disorder, unspecified
CPT/HCPCS: 99396

== ENCOUNTER 2023-08-07 10:19 | Outpatient (REF) | payer OTHER, SELFPAY ==
--- NOTE | ~2023-08-07 | MM_ITS ---
EXAMINATION: MM SCREENING DIGITAL BREAST TOMOSYNTHESIS, BILATERAL CLINICAL INFORMATION: Screening. Asymptomatic. The patient has a history of right breast excision for lobular carcinoma in situ in 2020. She has also had bilateral breast reduction. COMPARISON: Mammography: This study is compared with prior exams dating back to 2019. TECHNIQUE: Digital breast tomosynthesis is performed in both the craniocaudal and mediolateral oblique views along with computer-aided detection (CAD). Synthesized 2D images are generated from the tomosynthesis. FINDINGS: There are scattered areas of fibroglandular density (ACR BI-RADS breast composition Category b). There are no significant masses, abnormal calcifications, or other abnormalities. Bilateral post reduction changes are present. MM/MM tomosynthesis screening BI IMPRESSION: No mammographic evidence of malignancy. ASSESSMENT: BI-RADS BI-RADS 2 - Benign Findings RECOMMENDATION: Routine annual mammography screening. 1 year F/U This examination should not preclude the clinical evaluation of a suspicious palpable abnormality. This patient's information was entered into a reminder system with a target due date for their next mammogram.
== END 2023-08-07 10:20 | disposition home or self-care (01) ==
LOC: HO.MAMMO 10:19
PROVIDERS: PCP Internal Medicine; Visit Provider Internal Medicine
DX: Z12.31 Encounter for screening mammogram for malignant neoplasm of breast (principal)
CPT/HCPCS: 77063; 77067

== ENCOUNTER → 2023-08-07 10:30 | Outpatient (BNV) | payer OTHER, SELFPAY | PROVIDERS: PCP Internal Medicine; Visit Provider Radiology Diagnostic Radiology | DX: Z12.31 Encounter for screening mammogram for malignant neoplasm of breast (principal) | CPT/HCPCS: 77063; 77067 ==

== ENCOUNTER 2023-08-07 10:51 | Outpatient (REF) | payer OTHER, SELFPAY ==
[2023-08-07 11:03] LABS: MANUAL DIFF FLAG NO
[2023-08-07 11:53] LABS: Basophils Percent Auto 0.3 % (0-2); Eosinophils Absolute Auto 0.1 X10*3/uL (0.0-0.4); Eosinophils Percent Auto 1.3 % (0-4); Hematocrit 42.7 % (37.0-47.0); Hemoglobin 14.4 g/dl (12.0-16.0); Imm Gran Abs Auto 0.03 X10*3/uL (0.00-0.03); Imm Gran Pct Auto 0.3 % (0.0-0.4); Lymphocytes Absolute Auto 2.3 X10*3/uL (1.2-4.9); Lymphocytes Percent Auto 26.3 % (20-40); Mean Corpuscular HGB Conc 33.7 g/dl (31.0-35.0); Mean Corpuscular Hemoglobin 31.5 pg (27.0-33.0); Mean Corpuscular Volume 93.4 fL (80.0-98.0); Mean Platelet Volume 10.3 fL (9.4-12.3); Monocytes Absolute Auto 0.7 X10*3/uL (0.1-1.2); Monocytes Percent Auto 8.6 % (2-11); Neutrophils Absolute Auto 5.4 x10*3/uL (2.0-8.3); Neutrophils Percent Auto 63.2 % (45-73); Platelet Count 333 X10*3/uL (160-400); Red Blood Count 4.57 X10*6/uL (4.20-5.50); Red Cell Distribution Width 11.8 % (11.0-16.0); White Blood Count 8.6 X10*3/uL (4.8-10.8)
[2023-08-07 12:40] LABS: Alanine Aminotransferase 21 U/L (0-31); Albumin Level 3.9 g/dL (3.5-5.0); Alkaline Phosphatase 115 U/L (39-117); Anion Gap 12 (12-20); Aspartate Amino Transferase 24 U/L (5-31); Bilirubin Total 0.4 mg/dL (0.0-1.0); Blood Urea Nitrogen 13 mg/dL (9-16); Calcium 9.2 mg/dL (8.4-10.2); Carbon Dioxide 26 mmol/L (22-29); Chloride 108 mmol/L (96-108); Cholesterol 205 mg/dL (<200); Estimated Glomerular Filt Rate > 60; Glucose Fasting 88 mg/dL (60-99); HDL Cholesterol 54 mg/dL (>40); LDL Cholesterol Calculated 125 mg/dL (<100); Sodium 142 mmol/L (135-145); Total Protein 7.2 g/dL (6.5-8.0); Triglycerides 130 mg/dL (<150)
[2023-08-07 12:57] LABS: TSH reflex Free T4 1.52 uIU/mL (0.32-4.0); Vitamin D 25-OH Total 29.4 ng/mL (>30)
[2023-08-07 13:07] LABS: Folate 14.5 ng/mL (> or = 4.0)
[2023-08-09 14:33] LABS: Vitamin B12 452 pg/mL (200-900)
== END 2023-08-07 10:52 | disposition home or self-care (01) ==
LOC: HO.LAB 10:51
PROVIDERS: PCP Internal Medicine; Visit Provider Internal Medicine
DX: Z00.01 Encounter for general adult medical examination with abnormal findings (principal); L65.9 Nonscarring hair loss, unspecified; F41.9 Anxiety disorder, unspecified
CPT/HCPCS: 36415; 80053; 80061; 82306; 82607; 82746; 84443; 85025

== ENCOUNTER 2023-11-15 15:53 | Outpatient (AMB) | payer OTHER, SELFPAY ==
[2023-11-15 15:55] VITALS: BP 122/74; PULSE 91; TEMP 36.9; O2SAT 99; BMI 33.8
--- NOTE | 2023-11-15 15:55 | AM.OFFWIN_ITS ---
Intake Vital Signs 3 11/15/23 15:55 Height 5 ft 6 in Weight 209 lb 4 oz BMI 33.8 BP 122/74 Blood Pressure Location Lt brachial Position Sitting Pulse 91 Pulse Source Pulse Oximeter Temp 98.5 F Temp Source Oral Pulse Oximetry (%) 99 Oxygen Delivery Method Room Air Intake Visit Reasons: EP Rash on hand Intake Note: Pt is here today for rash on Rt hand, pt states noticed 3 months ago. Patient Tobacco Use Status: Former Tobacco user Allergies duloxetine [From CYMBALTA] Allergy (Intermediate, Verified 11/15/23 15:57) TONGUE SORES Influenza Virus Vaccines [INFLUENZA VIRUS VACCINES] Allergy (Intermediate, Verified 11/15/23 15:57) ARM SWELLING Sulfa (Sulfonamide Antibiotics) Adverse Reaction (Unknown, Verified 11/15/23 15:57) shaky feeling bactrim Allergy (Mild, Uncoded 08/02/23 14:30) Palpitations Do you need a note to return to daycare/school/sports/work: No HPI HPI Comments 2 History of Present Illness0 Details 48 y/o female patient who presents to ct dagmar in clinic with c/o chronic rash right hand between thumb and index finger x 3 months. Reports using A&D with no relief. She has also used OTC Hydrocortisone cream which resolved the rash temporarily. Reports that the rash is very itchy and spreads. Denies any changes to diet, cosmetic products or detergent. 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 Lobular carcinoma in situ (LCIS) of right breast IBS (irritable bowel syndrome) Anxiety Surgical History H/O abdominoplasty (02/11/21) History of bilateral breast reduction surgery (07/21/20) History of dilatation and curettage (1999) History of tonsillectomy History of section Family History Mother History of breast cancer Mental health disorder Maternal Grandfather History of skin cancer Unknown History of breast cancer, Onset Age: 35 Paternal Grandmother Diabetes Social History Household Members: Spouse and Children Housing: House Alcohol intake: never Patient Tobacco Use Status: Former Tobacco user Years Smoked: 10 yrs e-Cigarette/Vaping Use: Never Used Second Hand Smoke Exposure: No service: No Current occupational status: employed 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 occupational exposures/hazards: No Sexual orientation: Straight/Heterosexual Gender identity: Female Cognitive needs: No Hearing needs: No Vision needs: Yes Female Reproductive History Menstrual Age of Menarche: 11 Review of Systems Const All systems reviewed & are unremarkable except as noted in HPI and below Physical Exam Vital Signs: Last Vital Signs Temp 98.5 F 11/15/23 15:55 Pulse 91 11/15/23 15:55 BP 122/74 11/15/23 15:55 Pulse Ox 99 11/15/23 15:55 Oxygen Delivery Method Room Air 11/15/23 15:55 BMI result Body Mass Index 33.8 Const Orientation/consciousness: patient oriented x3 Skin General skin exam: dry skin Rashes: rashes noted (Red scaly Patch right hand between thumb and index finger ) Neuro General: patient oriented x3, gait normal and moves all extremities Extrem Hand/finger images: 2 1. Red scaly Patch right hand between thumb and index finger Psych Speech and movement: Normal speech and movement present Assessment & Plan Assessment & Plan (1) Rash and other nonspecific skin eruption: Code(s): R21 - Rash and other nonspecific skin eruption Plan: - Tinea Manuum vs Dermatitis. - Will Tx with topical Fungal cream - Advised referral to Derm for poss Skin Bx - Maintain a good hand hygien. Medications: New 2 ketoconazole 2% 1 appl topical BID 30 grams 0RF R21 - Rash and other nonspecific skin eruption Coding Level of Care Code Est Pt Level 3 (80769) Diagnoses Rash and other nonspecific skin eruption R21 Time Spent (min) 15
== END 2023-11-15 16:54 | disposition home or self-care (01) ==
PROVIDERS: PCP Internal Medicine; Visit Provider Nurse Practitioner Family
DX: R21 Rash and other nonspecific skin eruption (principal)
CPT/HCPCS: 99213

== ENCOUNTER 2024-01-16 08:29 | Outpatient (AMB) | payer OTHER, SELFPAY ==
[2024-01-16 08:41] VITALS: BP 104/66; BMI 33.6
--- NOTE | 2024-01-16 08:41 | A.OFFVIS_ITS ---
Vital Signs 01/16/24 08:41 Height 5 ft 6 in Weight 208 lb BMI 33.6 BP 104/66 Intake Visit Reasons: AUB Intake Note: Has had her period twice a month Wet End Helper Required: No Information Interpreted: non-clinical & clinical Tester Printed Circuit Boards: Tester Printed Circuit Boards Present (Stephanie) Allergies duloxetine [From CYMBALTA] Allergy (Intermediate, Verified 01/16/24 08:55) TONGUE SORES Influenza Virus Vaccines [INFLUENZA VIRUS VACCINES] Allergy (Intermediate, Verified 01/16/24 08:55) ARM SWELLING Sulfa (Sulfonamide Antibiotics) Adverse Reaction (Unknown, Verified 01/16/24 08:55) shaky feeling bactrim Allergy (Mild, Uncoded 01/16/24 08:55) Palpitations Is last menstrual period known: Yes Last menstrual period: 01/10/24 Post menopausal: No HPI Comments Details: Patient is here due to her menstrual cycles becoming very short intervals typical range is 26 days apart, she reports since November they have been 18 and then 19 days apart. She denies any lightheadedness or dizziness. CBC and TSH 6 months ago were normal ranges. She reports the cycles last 5-6 days, 4 days are heavy with clots. Also she reports an occasional postcoital bleeding. History of breast cancer. 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 Lobular carcinoma in situ (LCIS) of right breast IBS (irritable bowel syndrome) Anxiety Surgical History H/O abdominoplasty (02/11/21) History of bilateral breast reduction surgery (07/21/20) History of dilatation and curettage (1999) History of tonsillectomy History of section Family History Mother History of breast cancer Mental health disorder Maternal Grandfather History of skin cancer Unknown History of breast cancer, Onset Age: 35 Paternal Grandmother Diabetes Social History Household Members: Spouse and Children Housing: House Alcohol intake: never Patient Tobacco Use Status: Former Tobacco user Years Smoked: 10 yrs e-Cigarette/Vaping Use: Never Used Second Hand Smoke Exposure: No service: No Current occupational status: employed 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 occupational exposures/hazards: No Sexual orientation: Straight/Heterosexual Gender identity: Female Cognitive needs: No Hearing needs: No Vision needs: Yes Female Reproductive History Menstrual Age of Menarche: 11 Duration of menses: 3-5 days Date of last menstrual period: 01/10/24 control method: none Total pregnancies: 3 Full term: 2 Number of Living Children: 2 Ab spontaneous: 1 Date of last pap smear: 03/13/19 (negative) Review of Systems Const All systems reviewed & are unremarkable except as noted in HPI and below Physical Exam Vital Signs: Last Vital Signs BP 104/66 01/16/24 08:41 BMI result Body Mass Index 33.6 Const General: cooperative, healthy appearing and no acute distress Orientation/consciousness: patient oriented x3 GI Inspection: Yes normal to inspection Palpation (GI): Soft to palpation and Other GI palpation findings present (Nontender) Rectal Exam - Female: visual inspection normal General: Yes bladder normal to palpation External Female Exam: normal appearance of the urethra Speculum Exam - Vagina: normal appearance of the vagina, normal palpation and normal vaginal discharge Speculum Exam - Cervix: normal appearance of the cervix and normal palpation Bimanual exam- vagina & uterus: normal bimanual exam, normal palpation, uterine size normal, bladder normal to palpation, normal palpation, uterine shape normal and non-tender Bimanual Exam- Adnexa, other: normal adnexae Neuro General: patient oriented x3 Assessment & Plan Assessment & Plan (1) Abnormal uterine bleeding (AUB): Code(s): N93.9 - Abnormal uterine and vaginal bleeding, unspecified Category: Medical Plan Discussed: Workup for AUB to include pelvic ultrasound and an endometrial biopsy. Cultures obtained today. Anticipatory guidance reviewed for endometrial biopsy including taking food and fluids, and Tylenol as directed by manufacture 1 hour before the procedure to help with cramping. Advised if any heavy prolonged bleeding or feeling lightheaded dizziness to report to the emergency room immediately. All of her questions and concerns were addressed to the best of my ability and shared decision making. She is agreeable to the plan of care. This note is constructed using voice recognition software. While every effort has been made to ensure accuracy, maintenance mechanic technician errors may have been included. Orders: Orders Complete Blood Count no Diff Today N93.9 - Abnormal uterine and vaginal bleeding, unspecified Bacterial Vaginosis Panel Today N93.9 - Abnormal uterine and vaginal bleeding, unspecified CT NG by PCR Today N93.9 - Abnormal uterine and vaginal bleeding, unspecified Pap Smear Today N93.9 - Abnormal uterine and vaginal bleeding, unspecified Coding Level of Care Code Est Pt Level 4 (22372) Diagnoses Abnormal uterine bleeding (AUB) N93.9
== END 2024-01-16 09:21 | disposition home or self-care (01) ==
LOC: HO.HWS 08:29
PROVIDERS: PCP Internal Medicine; Visit Provider Advanced Practice Midwife
DX: N93.9 Abnormal uterine and vaginal bleeding, unspecified (principal)
CPT/HCPCS: 99214

== ENCOUNTER 2024-01-16 08:29 | Outpatient (REF) | payer OTHER, SELFPAY ==
[2024-01-16 15:32] LABS: Bacterial Vaginosis PCR NEGATIVE (Negative); Candida Group PCR NOT DETECTED (Not Detect); Candida glab krusei PCR NOT DETECTED (Not Detect); Trichomonas vaginalis PCR NOT DETECTED (Not Detect)
[2024-01-16 16:04] LABS: CT PCR NOT DETECTED (Not Detect.); NG PCR NOT DETECTED (Not Detect.)
[2024-01-25 04:44] LABS: HPV mRNA E6/E7 rflx Not Detected (Not Detected)
== END 2024-01-16 08:30 | disposition home or self-care (01) ==
LOC: HO.LNP 08:29
PROVIDERS: PCP Internal Medicine; Visit Provider Advanced Practice Midwife
DX: N93.9 Abnormal uterine and vaginal bleeding, unspecified (principal)
CPT/HCPCS: 0352U; 0353U; 87624; 88142

== ENCOUNTER 2024-01-28 13:47 | Outpatient (REF) | payer OTHER, SELFPAY ==
--- NOTE | ~2024-01-28 | US_ITS ---
EXAMINATION: US PELVIS CLINICAL INFORMATION: Abnormal uterine and vaginal bleeding. COMPARISON: Pelvic ultrasound 05/12/2021. TECHNIQUE: Ultrasound of the pelvis is performed using both transabdominal and transvaginal transducers. Transvaginal imaging is performed due to inadequate visualization transabdominally. FINDINGS: Uterus: The uterus is anteverted and measures 7.7 x 3.6 x 5.2 cm. 2.4 cm intramural fundal fibroid. The double wall endometrial thickness is 0.6 mm. Adnexa: The right ovary is not visible. The left ovary measures 2.0 x 1.6 x 1.5 cm, volume 2.5 mL. The left ovary appears normal. US/US pelvic and transvaginal IMPRESSION: 2.4 cm fundal fibroid.
== END 2024-01-28 13:48 | disposition home or self-care (01) ==
LOC: HO.US 13:47
PROVIDERS: PCP Internal Medicine; Visit Provider Advanced Practice Midwife
DX: N93.9 Abnormal uterine and vaginal bleeding, unspecified (principal)
CPT/HCPCS: 76830; 76856

== ENCOUNTER 2024-01-28 14:16 | Outpatient (REF) | payer OTHER, SELFPAY ==
[2024-01-28 14:37] LABS: Hematocrit 38.4 % (37.0-47.0); Hemoglobin 13.2 g/dl (12.0-16.0); Mean Corpuscular HGB Conc 34.4 g/dl (31.0-35.0); Mean Corpuscular Hemoglobin 31.3 pg (27.0-33.0); Mean Platelet Volume 9.5 fL (9.4-12.3); Platelet Count 304 X10*3/uL (160-400); Red Blood Count 4.22 X10*6/uL (4.20-5.50); Red Cell Distribution Width 11.9 % (11.0-16.0); White Blood Count 9.3 X10*3/uL (4.8-10.8)
== END 2024-01-28 14:17 | disposition home or self-care (01) ==
LOC: HO.LAB 14:16
PROVIDERS: Advanced Practice Midwife; PCP Internal Medicine; Visit Provider Internal Medicine
DX: N93.9 Abnormal uterine and vaginal bleeding, unspecified (principal)
CPT/HCPCS: 36415; 85027

== ENCOUNTER 2024-06-11 08:33 | Outpatient (AMB) | payer OTHER, SELFPAY ==
--- NOTE | 2024-06-11 08:36 | MHC.OFFVIS ---
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 She reports her cycles are completely normal x 4 days. She previously had 2 episodes of closely spaced cycles 18-19 days apart, and over a year ago episode of postcoital bleeding. She declines any pelvic pain. History of vasectomy with partner. Pap 01/31/2024 is negative, CBC 01/28/2024-13.2/38.4, TSH 08/07/2023- 1.52. 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 Lobular carcinoma in situ (LCIS) of right breast IBS (irritable bowel syndrome) Anxiety Surgical History H/O abdominoplasty (02/11/21) History of bilateral breast reduction surgery (07/21/20) History of dilatation and curettage (1999) History of tonsillectomy History of section Family History Mother History of breast cancer Mental health disorder Maternal Grandfather History of skin cancer Unknown History of breast cancer, Onset Age: 35 Paternal Grandmother Diabetes Social History Household Members: Spouse and Children Housing: House Alcohol intake: never Patient Tobacco Use Status: Former Tobacco user Years Smoked: 10 yrs e-Cigarette/Vaping Use: Never Used Second Hand Smoke Exposure: No service: No Current occupational status: employed 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 occupational exposures/hazards: No Sexual orientation: Straight/Heterosexual Gender identity: Female Cognitive needs: No Hearing needs: No Vision needs: Yes Female Reproductive History Menstrual Age of Menarche: 11 Date of last menstrual period: 05/19/24 Review of Systems Const All systems reviewed & are unremarkable except as noted in HPI and below Endo Reports no additional complaints Physical Exam Const General: cooperative, healthy appearing and no acute distress Psych Appearance: well kempt Attitude: cooperative Thought process: Normal thought process present Results Reviewed Results Reviewed: [address] [address] Ultrasound Report Signed Patient: Reba Tompkins MR#: [id number] : 1975 Acct:[id number] Age/Sex: 48 / F ADM Date: 01/28/24 Loc: HO.US Attending Dr: June Vincent CNM Ordering Physician: June Vincent CNM Date of Service: 01/28/24 Procedure(s): US pelvic and transvaginal Accession Number(s): [id number] cc: Nikia Rojas MD; June Vincent CNM~ EXAMINATION: US PELVIS CLINICAL INFORMATION: Abnormal uterine and vaginal bleeding. COMPARISON: Pelvic ultrasound 05/12/2021. TECHNIQUE: Ultrasound of the pelvis is performed using both transabdominal and transvaginal transducers. Transvaginal imaging is performed due to inadequate visualization transabdominally. FINDINGS: Uterus: The uterus is anteverted and measures 7.7 x 3.6 x 5.2 cm. 2.4 cm intramural fundal fibroid. The double wall endometrial thickness is 0.6 mm. Adnexa: The right ovary is not visible. The left ovary measures 2.0 x 1.6 x 1.5 cm, volume 2.5 mL. The left ovary appears normal. US/US pelvic and transvaginal IMPRESSION: 2.4 cm fundal fibroid. Dictated By: Christiano Gonsales MD Signed By: <Electronically signed by Christiano Gonsales MD in OV> 02/06/24 1613 DD/ 1405 TD/TT: Aerial Gunner Superintendent: DENISSE Assessment & Plan Assessment & Plan (1) Fibroid: Code(s): D21.9 - Benign neoplasm of connective and other soft tissue, unspecified Category: Medical (2) Abnormal uterine bleeding (AUB): Code(s): N93.9 - Abnormal uterine and vaginal bleeding, unspecified Category: Medical Plan Discussed: Ultrasound bspihtjg-zpcqrng-6.4 cm fundal. Counseled re: Leiomyoma: common pelvic neoplasm. Differential diagnosis-may include but not limited to- leiomyosarcoma which is a rare uterine sarcoma 3-7/100,000, difficult to distinguish from fibroids on ultrasound from uterine sarcoma's. Unlikely any single test will have a highly positive predictive value. Hysterectomy is not recommended for sole purpose of excluding malignant neoplasm. Consult for surgical exploration, medical treatment, other treatments, verses expectant management, pros and cons, risks and benefits. Expectant management follow up in 6 months, then yearly for stability. Plan ultrasound 08/01/2024, with follow up in person to discuss results. Report any AUB. Pelvic pressure, bloating, or pain. Advised endometrial biopsy to rule out any atypical, precancerous or cancer cells of the uterine lining-patient declines. Referral to MD if indicated for level of care if indicated. Monitor menstrual cycles, report any unscheduled bleeding, bleeding episodes <24 days apart or heavy/prolonged menstrual bleeding. Call the office for a follow up for any concerns. Perimenopause versus menopause-no menses for 12 consecutive months diagnostic of menopause. All of her questions and concerns were addressed to the best of my ability and shared decision making. She is agreeable to the plan of care. This note is constructed using voice recognition software. While every effort has been made to ensure accuracy, skip pit worker errors may have been included. Orders: Orders US pelvic and transvaginal 07/28/24 D21.9 - Benign neoplasm of connective and other soft tissue, unspecified Coding Level of Care Code Est Pt Level 3 (70106) Diagnoses Fibroid D21.9 Abnormal uterine bleeding (AUB) N93.9
== END 2024-06-12 08:54 | disposition home or self-care (01) ==
LOC: HO.HWS 08:33
PROVIDERS: PCP Internal Medicine; Visit Provider Advanced Practice Midwife
DX: D21.9 Benign neoplasm of connective and other soft tissue, unspecified (principal); N93.9 Abnormal uterine and vaginal bleeding, unspecified
CPT/HCPCS: 99213

== ENCOUNTER → 2024-06-11 08:33 | Outpatient (BNVA) | payer OTHER, SELFPAY | PROVIDERS: PCP Internal Medicine; Visit Provider Advanced Practice Midwife ==

== ENCOUNTER 2024-08-08 10:55 | Outpatient (REF) | payer OTHER, SELFPAY | END 2024-08-08 10:56 | disposition home or self-care (01) | LOC: HO.US 10:55 | PROVIDERS: PCP Internal Medicine; Visit Provider Advanced Practice Midwife | DX: D21.9 Benign neoplasm of connective and other soft tissue, unspecified (principal) | CPT/HCPCS: 76830; 76856 ==

== ENCOUNTER → 2024-08-08 10:59 | Outpatient (BNV) | payer OTHER, SELFPAY | PROVIDERS: PCP Internal Medicine; Visit Provider Radiology Diagnostic Radiology | DX: D25.9 Leiomyoma of uterus, unspecified (principal) | CPT/HCPCS: 76830; 76856 ==

== ENCOUNTER 2024-08-11 10:06 | Outpatient (REF) | payer OTHER, SELFPAY | END 2024-08-11 10:07 | disposition home or self-care (01) | LOC: HO.MAMMO 10:06 | PROVIDERS: Visit Provider Internal Medicine | DX: Z12.31 Encounter for screening mammogram for malignant neoplasm of breast (principal) | CPT/HCPCS: 77063; 77067 ==

== ENCOUNTER → 2024-08-11 10:15 | Outpatient (BNV) | payer OTHER, SELFPAY | PROVIDERS: Visit Provider Internal Medicine | DX: Z12.31 Encounter for screening mammogram for malignant neoplasm of breast (principal) | CPT/HCPCS: 77063; 77067 ==

== ENCOUNTER 2024-08-27 15:05 | Outpatient (AMB) | payer OTHER, SELFPAY ==
--- NOTE | 2024-08-27 15:05 | MHC.OFFVIS ---
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 I spent 8 minutes speaking with the patient on the phone plus an additional 5 minutes reviewing the chart and 5 minutes updating the medical record for a total of 18 minutes. Patient presents via phone to discuss: Ultrasound findings, history of abnormal uterine bleeding for several cycles. 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 Lobular carcinoma in situ (LCIS) of right breast IBS (irritable bowel syndrome) Anxiety Surgical History H/O abdominoplasty (02/11/21) History of bilateral breast reduction surgery (07/21/20) History of dilatation and curettage (1999) History of tonsillectomy History of section Family History Mother History of breast cancer Mental health disorder Maternal Grandfather History of skin cancer Unknown History of breast cancer, Onset Age: 35 Paternal Grandmother Diabetes Social History Household Members: Spouse and Children Housing: House Alcohol intake: never Patient Tobacco Use Status: Former Tobacco user Years Smoked: 10 yrs e-Cigarette/Vaping Use: Never Used Second Hand Smoke Exposure: No service: No Current occupational status: employed 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 occupational exposures/hazards: No Sexual orientation: Straight/Heterosexual Gender identity: Female Cognitive needs: No Hearing needs: No Vision needs: Yes Female Reproductive History Menstrual Age of Menarche: 11 Review of Systems Const All systems reviewed & are unremarkable except as noted in HPI and below Endo Reports no additional complaints Physical Exam Const General: cooperative, healthy appearing and no acute distress Psych Appearance: well kempt Attitude: cooperative Thought process: Normal thought process present Telehealth Telehealth Telehealth Platform: [email or web address] Location of provider rendering services: practice address Location of patient: other Patient Identification confirmed using: Name, : Yes Telehealth method: video Patient verbally consented to treatment: Yes Patient verbally consented to billing insurance company: Yes Patient informed of any privacy concerns related to visit: Yes Results Reviewed Results Reviewed: [address] [address] Ultrasound Report Signed Patient: Reba Tompkins MR#: [id number] : 1975 Acct:[id number] Age/Sex: 48 / F ADM Date: 08/08/24 Loc: HO.US Attending Dr: June Vincent CNM Ordering Physician: June Vincent CNM Date of Service: 08/08/24 Procedure(s): US pelvic and transvaginal Accession Number(s): [id number] cc: Nikia Rojas MD; June Vincent CNM~ EXAMINATION: US PELVIS CLINICAL INFORMATION: Benign neoplasm of connective and other soft tissue, unspecified. COMPARISON: 01/28/2024. 05/12/2021. TECHNIQUE: Ultrasound of the pelvis is performed using both transabdominal and transvaginal transducers along with Doppler. Transvaginal imaging is performed due to inadequate visualization transabdominally. FINDINGS: Uterus: The uterus is anteverted, neutrally flexed, and measures 11.9 x 6.5 x 6.6 cm. Uterine volume = 267.3 mL. Cervix demonstrates several nabothian cysts but is otherwise normal. The double wall endometrial thickness is 0.9 mm. There is a small 0.3 cm subendometrial cyst, nonspecific. This is of doubtful clinical significance. Uterus demonstrates a central fundal subserosal fibroid measuring 3.1 x 2.6 x 2.3 cm (previously 2.4 x 2.2 x 1.9 cm). In addition, there is a right mid uterine segment subserosal fibroid measuring 1.9 x 1.8 x 2.1 cm, not previously imaged. No additional fibroids. Adnexa: Both ovaries are visualized. There is normal color flow to the adnexa. There is no ovarian torsion. There is no pelvic ascites or fluid collection. There are no adnexal masses. Right ovary measures 2.5 x 1.7 x 1.9 cm. Volume = 4.2 mL. Normal imaging appearance. Left ovary measures 3.3 x 2.5 x 2.8 cm. Volume = 12.1 mL. Normal imaging appearance. US/US pelvic and transvaginal IMPRESSION: 1. 2 uterine fibroids identified, the larger in the central subserosal fundus measuring 3.1 x 2.6 x 3.0 cm. (Previously measured 2.4 x 2.2 x 1.9 cm). 2. Normal endometrial stripe. Small 0.3 cm subendometrial cyst, nonspecific but of doubtful clinical significance. (These can be associated with adenomyosis or hyperplasia). 3. Cervix demonstrates nabothian cysts but is otherwise normal. 4. Normal ovaries bilaterally. Electronically signed by: Ha Clifton MD 08/22/2024 10:39 AM [facility] Dictated By: Ha Clifton MD Signed By: <Electronically signed by Ha Clifton MD in OV> 08/22/24 1039 DD/ 1107 TD/TT: 08/08/24 1130 Slicing Machine Feeder: Assessment & Plan Assessment & Plan (1) Abnormal uterine bleeding (AUB): Code(s): N93.9 - Abnormal uterine and vaginal bleeding, unspecified Category: Medical (2) Encounter to discuss test results: Code(s): Z71.2 - Person consulting for explanation of examination or test findings (3) Fibroid: Code(s): D21.9 - Benign neoplasm of connective and other soft tissue, unspecified Category: Medical Plan Discussed: Ultrasound findings- endometrial cyst and fibroid, recommended hysteroscopy evaluation for further eval with Dr. eWlsh. Purpose for the hysteroscopy and preprocedural anticipatory guidance reviewed. Repeat ultrasound 6 months for monitoring fibroid. Plan follow up visit pending ultrasound results. Appointment for hysteroscopy consult to be made. The patient expressed understanding and agreement with the plan of care. All of her questions and concerns were addressed to the best of my ability. This note is constructed using voice recognition software. While every effort has been made to ensure accuracy, asset protection representative errors may have been included. Orders: Orders US pelvic and transvaginal 01/05/25 D21.9 - Benign neoplasm of connective and other soft tissue, unspecified Coding Level of Care Code Tele Est Pt Level 3 (39505) Diagnoses Abnormal uterine bleeding (AUB) N93.9 Encounter to discuss test results Z71.2 Fibroid D21.9
--- OUTSIDE RECORDS SUMMARY | 2024-08-27 17:46 | XMS_ITS | Continuity of Care Document ---
Author Organization [facility] Address [address] [place] [address] Phone Care Team Providers Care Hot Worker Name Role Phone Ha Staton Unavailable Unavailable [...] Diagnoses Date Provider Providers Copied on Encounter [facility] MD DRUMMOND, [address] [place] [address] Dr Beckwith [address], [id number], tel:[phone] CV[facility] - [place] - [place] Encounter for cosmetic surgery 3 Ady Bonner. [address] [address], [place], [place], [id number], [place]. tel:[phone] Referring Provider: Nikia Kearney, [address] [place] [address], [place], [address]. tel:[phone] [facility] MD DRUMMOND, [address] [place] [address] Dr Beckwith [address], [place], [id number], [place] tel:[phone] [facility] - [place] Encounter for cosmetic surgery 3 Ady Bonner. [address] [address], [place], [place], [id number], [place]. tel:[phone] Referring Provider: Nikia Kearney, [address] [place] [address], [place], [address]. tel:[phone] Office/Outpt E&M Established 15 Mins [facility] MD DRUMMOND, [address] [place] [address] Dr Beckwith [address], [place], [id number], [place] tel:[phone] [facility] - [place] Venous insufficiency (chronic) (peripheral) 3 Caio OCONNOR FACS RVT SANDIP Jeffers. [address] [address], [place], [address], [place]. tel:[phone] Referring Provider: Nikia Kearney, [address] [place] [address], [address]. 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 [address] [facility], [address], [place], [place], [id number], [place]. tel:[phone] Referring Provider: Nikia Kearney, [address] [place] [address], [place], [address]. tel:[phone] [facility] MD DRUMMOND, [address] [place] [address] Dr Beckwith [address], [id number], [place] tel:[phone] [facility] - [place] Encntr for f/u exam aft trtmt for cond oth than malig neoplmVenous insufficiency (chronic) (peripheral) 3 Caio OCONNOR FACS T SANDIP Jeffers. [address] [address], [place], [address], [place]. tel:[phone] Referring Provider: Nikia Kearney, [address] [place] [address], [place], [address]. tel:[phone] [facility] MD DRUMMOND, [address] [place] [address] Dr Beckwith [address], [id number], [place] tel:[phone] [facility] - [place] Venous insufficiency (chronic) (peripheral) 3 Caio OCONNOR FACS T SANDIP Jeffers. [address] [address], [place], [address], [place]. tel:[phone] Referring Provider: Nikia Kearney, [address] [place] [address], [place], [address]. tel:[phone] [facility] MD DRUMMOND, [address] [place] [address] Dr Beckwith [address], [id number], [place] tel:[phone] CV[facility] - [place] - [place] Venous insufficiency (chronic) (peripheral) 3 Caio OCONNOR FACS Marilee Jeffers. [address] [facility], [address], [place], [address], [place]. tel:[phone] Referring Provider: Nikia Rojas MD Caio, [address] [place] [address], [address]. tel:[phone] [facility], [address] [place] [address] [address], [id number], [place] tel:[phone] [facility] - [place] - [place] No Information 3 Caio OCONNOR FACS Marilee Jeffers. [address] [place] [address], [address], [place], [address], [place]. tel:[phone] Referring Provider: Nikia Kearney, [address] [place] [address], [address]. tel:[phone] [facility] MD DRUMMOND, [address] [place] [address] [address], [id number], [place] tel:[phone] CVR - [facility] Varicose veins of right low extrm w oth complications 3 Caio OCONNOR FACS Marilee Jeffers. [address] [place] [address], [address], [place], [address], [place]. tel:[phone] Referring Provider: Nikia Kearney, [address] [place] [address], [place], [address]. tel:[phone] [facility] MD DRUMMOND, [address] [place] [address] Dr Beckwith [address], [id number], [place] tel:[phone] CVR - [facility] Encntr for f/u exam aft trtmt for cond oth than malig neoplmVenous insufficiency (chronic) (peripheral) 3 Caio OCONNOR FACS T RPNIRAV Jeffers. [address] [place] [address], [place], [address], [place]. tel:[phone] Referring Provider: Nikia Kearney, [address], [address]. tel:[phone] [facility], [address] [place] [address] [facility] [address], [id number], [place] tel:[phone] CV[facility] - [place] - [place] Venous insufficiency (chronic) (peripheral) 3 Caio OCONNOR FACS Marilee NIRAV Jeffers. [address] [place] [address], [place], [address], [place]. tel:[phone] Referring Provider: Nikia Kearney, [address] [place] [address], [address]. tel:[phone] [facility], [address] [place] [address] [facility] [address], [place], [id number], [place] tel:[phone] [facility] - [place] Venous insufficiency (chronic) (peripheral) 3 Caio OCONNOR FACS Marilee NIRAV Jeffers. [address] [place] [address], [place], [address], [place]. tel:[phone] Referring Provider: Nikia Kearney, [address] [place] [address], [address]. tel:[phone] Family History Family Member Type Diagnosis Age [...]
== END 2024-08-27 16:00 | disposition home or self-care (01) ==
LOC: HO.HWS 15:05
PROVIDERS: PCP Internal Medicine; Visit Provider Advanced Practice Midwife
DX: N93.9 Abnormal uterine and vaginal bleeding, unspecified (principal); Z71.2 Person consulting for explanation of examination or test findings; D21.9 Benign neoplasm of connective and other soft tissue, unspecified
CPT/HCPCS: 99213

== ENCOUNTER 2024-09-01 12:29 | Outpatient (REF) | payer OTHER, SELFPAY ==
[2024-09-01 15:46] LABS: MANUAL DIFF FLAG NO
[2024-09-01 15:49] LABS: Basophils Percent Auto 0.5 % (0-2); Eosinophils Absolute Auto 0.1 X10*3/uL (0.0-0.4); Eosinophils Percent Auto 1.7 % (0-4); Hematocrit 42.8 % (37.0-47.0); Hemoglobin 14.4 g/dl (12.0-16.0); Imm Gran Abs Auto 0.03 X10*3/uL (0.00-0.03); Imm Gran Pct Auto 0.4 % (0.0-0.4); Lymphocytes Absolute Auto 2.6 X10*3/uL (1.2-4.9); Lymphocytes Percent Auto 30.9 % (20-40); Mean Corpuscular HGB Conc 33.6 g/dl (31.0-35.0); Mean Corpuscular Volume 92.2 fL (80.0-98.0); Mean Platelet Volume 10.5 fL (9.4-12.3); Monocytes Absolute Auto 0.7 X10*3/uL (0.1-1.2); Neutrophils Absolute Auto 4.9 x10*3/uL (2.0-8.3); Neutrophils Percent Auto 58.5 % (45-73); Platelet Count 377 X10*3/uL (160-400); Red Blood Count 4.64 X10*6/uL (4.20-5.50); Red Cell Distribution Width 12.2 % (11.0-16.0); White Blood Count 8.4 X10*3/uL (4.8-10.8)
[2024-09-01 17:33] LABS: Alanine Aminotransferase 40 U/L (0-31); Anion Gap 12 (12-20); Aspartate Amino Transferase 37 U/L (5-31); Blood Urea Nitrogen 15 mg/dL (9-16); Calcium 9.6 mg/dL (8.4-10.2); Carbon Dioxide 25 mmol/L (22-29); Chloride 107 mmol/L (96-108); Cholesterol 220 mg/dL (<200); Estimated Glomerular Filt Rate > 60; Glucose Fasting 86 mg/dL (60-99); HDL Cholesterol 56 mg/dL (>40); LDL Cholesterol Calculated 134 mg/dL (<100); Potassium 4.1 mmol/L (3.3-5.1); Sodium 140 mmol/L (135-145); Triglycerides 150 mg/dL (<150)
[2024-09-01 17:50] LABS: Vitamin D 25-OH Total 66.4 ng/mL (>30)
== END 2024-09-01 12:30 | disposition home or self-care (01) ==
LOC: HO.HMGCLDS 12:29
PROVIDERS: PCP Internal Medicine; Visit Provider Internal Medicine
DX: Z00.01 Encounter for general adult medical examination with abnormal findings (principal); R92.30 Dense breasts, unspecified; N93.9 Abnormal uterine and vaginal bleeding, unspecified; F41.9 Anxiety disorder, unspecified; B00.1 Herpesviral vesicular dermatitis; E55.9 Vitamin D deficiency, unspecified; Z85.828 Personal history of other malignant neoplasm of skin; Z86.000 Personal history of in-situ neoplasm of breast; Z80.3 Family history of malignant neoplasm of breast; Z71.89 Other specified counseling
CPT/HCPCS: 36415; 80048; 80061; 82306; 84450; 84460; 85025; 96127

== ENCOUNTER 2024-09-01 12:29 | Outpatient (AMB) | payer OTHER, SELFPAY ==
--- NOTE | 2024-09-01 12:33 | A.OFFPC_ITS ---
Vital Signs 09/01/24 12:38 Height 5 ft 6 in Weight 207 lb BMI 33.4 BP 112/76 Blood Pressure Location Rt brachial Position Sitting Pulse 90 Pulse Source Pulse Oximeter Pulse Oximetry (%) 97 Oxygen Delivery Method Room Air Intake Visit Reasons: Annual PE Intake Note: Pt is here today for her PE: Last mammogram 08/11/24, papsmear 01/17/24, cologuard 07/12/22 Allergies duloxetine [From CYMBALTA] Allergy (Intermediate, Verified 09/08/24 00:22) TONGUE SORES Influenza Virus Vaccines [INFLUENZA VIRUS VACCINES] Allergy (Intermediate, Verified 09/08/24 00:22) ARM SWELLING Sulfa (Sulfonamide Antibiotics) Adverse Reaction (Unknown, Verified 09/08/24 00:22) shaky feeling bactrim Allergy (Mild, Uncoded 09/08/24 00:22) Palpitations Medication List - Last Reconciled 09/08/24 by Nikia Rojas MD biotin 250 mcg PO DAILY cholecalciferol (vitamin D3) 25 mcg PO DAILY multivitamin 1 tab PO DAILY valacyclovir (Valtrex) 2,000 mg (2 x 1 gram) PO Q12H PRN venlafaxine ER 75 mg PO DAILY Tobacco use date assessed: 09/01/24 Dental Screening Dental Screen Date: 09/01/24 Did you have a dental visit in the last 12 months?: Yes Did you have a dental problem in the last 6 months where you did not have access to dental care?: No Was dental information given to patient?: Patient has dentist HPI Annual PE HPI Details - The patient is a 48-year-old female pr esenting today for her physical exam. -she has history of abnormal uterine ble eding currently being followed at [facility]. - Reports significant menstrual bleeding with the presence of clots and intermenstrual bleeding. - Pelvic ultrasound revealed fibroids an d polyps, cervical cysts; fibroids not of current concerning nature, emphasis placed on polyps. - Previously diagnosed with lobular carc inoma in situ on the right breast, with family history of breast cancer, but no concerning genetic findings, under routine surveillance. - Underwent Mohs surgery for basal cell carcinoma on the forehead; no recurrence reported. - Low vitamin D levels identified during prior lab assessments, currently receiving supplementation. - Breast cancer screening with ultrasoun d recommended due to family history; MRI previously attempted but not successful due to claustrophobia. - Cologuard screening test for colorecta l cancer due this year, previously negative in 2021. - Pap smear last conducted in 2023, with in normal limits; follow-up based on recommended intervals. - Routine eye examinations, with attenti on to potential issues in the left eye. 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 Lobular carcinoma in situ (LCIS) of right breast IBS (irritable bowel syndrome) Anxiety Surgical History H/O abdominoplasty (02/11/21) History of bilateral breast reduction surgery (07/21/20) History of dilatation and curettage (1999) History of tonsillectomy History of section Family History Mother History of breast cancer Mental health disorder Maternal Grandfather History of skin cancer Unknown History of breast cancer, Onset Age: 35 Paternal Grandmother Diabetes Social History Household Members: Spouse and Children Housing: House Alcohol intake: never Patient Tobacco Use Status: Former Tobacco user Years Smoked: 10 yrs e-Cigarette/Vaping Use: Never Used Second Hand Smoke Exposure: No service: No Current occupational status: employed 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 1. Little interest or pleasure in doing things: not at all 2. Feeling down, depressed, or hopeless: not at all 3. Trouble falling or staying asleep, or sleeping too much: not at all 4. Feeling tired or having little energy: several days 5. Poor appetite or overeating: not at all 6. Feeling bad about yourself - or that you are a failure or have let yourself or your family down: not at all 7. Trouble concentrating on things, such as reading the newspaper or watching television: not at all 8. Moving or speaking so slowly that other people could have noticed. Or the opposite - being so fidgety or restless that you have been moving around a lot more than usual: not at all 9. Thoughts that you would be better off or of hurting yourself in some way: not at all Total score: 1 Depression Screening Interpretation: Negative (Controlled on venlafaxine ER 75 mg daily.) Depression Screening Done: Yes 56883 - PHQ-9 Billing: Yes Source: Developed by Drs. Chico Botello, Bozena Schumacher, Ulises Lucas and colleagues, with an educational mahendra from [employer]. Thrive Questionnaire Date Thrive assessed: 08/25/24 I am a: Patient What is your living situation today?: I have a steady place to live Within the past 12 months, did the food you bought not last and you didn't have the money to get more?: Never true Within the past 12 months, did you worry whether your food would run out before you got money to buy more?: Never true Do you have trouble paying for medicines?: No Do you have trouble getting transportation to medical appointments?: No Do you have trouble paying your heating and electricity bill?: No Do you have trouble taking care of your child, family member or friend?: No Do you have trouble with day-to-day activities such as bathing, preparing meals, shopping, managing finances, etc.?: No Are you currently unemployed and looking for a job?: No Are you interested in more education?: No Please select the resources that you would like help with: None Currently or been in a relationship where the following occur: No concerns reported THRIVE Score: 0 AUDIT C Alcohol Use Questionnaire (AUDIT-C) 1. How often do you have a drink containing alcohol?: Never 3. How often do you have six or more drinks on one occasion?: Never Total Score: 0 MILAGRO-7 AMB Questionnaire MILAGRO-7 Date MILAGRO - 7 assessed: 09/01/24 Feeling nervous, anxious, or on edge: 0 = Not at all Not being able to stop or control worryin = Not at all Worrying too much about different things: 0 = Not at all Trouble relaxin = Not at all Being so restless that it is hard to sit still: 0 = Not at all Becoming easily annoyed or irritable: 1 = Several days Feeling afraid as if something awful might happen: 0 = Not at all Total MILAGOR-7 score (0-4 normal; 5-9 mild; 10-14 moderate; 15-21 severe): 1 Source: Developed by Drs. Chico Botello, Bozena Schumacher, Ulises Lucas and colleagues, with an educational mahendra from [employer]. MILAGRO-7 Assessment Billing MILAGRO-7 Assessment Tool: MILAGRO-7 Assessment 04152 Review of Systems Const Denies body aches, Denies fever(s), Denies headache(s) and Denies weakness Eyes Details: Goes to [facility] Denies change in vision ENT Denies headache(s), Denies nasal congestion, Denies nasal discharge and Denies sore throat Card Denies chest pain and Denies dyspnea Resp Denies chest congestion, Denies cough and Denies dyspnea GI Denies abdominal pain, Denies change in bowel habits and Denies heartburn Reports no additional complaints Musc Reports stiffness Skin/Breast Reports as per HPI Neuro Denies headache(s) and Denies weakness Psych Reports as per HPI Endo Reports no additional complaints Juan/Lymph Reports no additional complaints Aller/Immun Reports no additional complaints Physical exam (Primary Care) Vital Signs: Last Vital Signs Pulse 90 09/01/24 12:38 BP 112/76 09/01/24 12:38 Pulse Ox 97 09/01/24 12:38 Oxygen Delivery Method Room Air 09/01/24 12:38 BMI result Body Mass Index 33.4 BMI Assessment/Plan discussion: High BMI High, discussed plan: lifestyle, weight reduction, dietary and physical activity Tobacco/Smoking Status: Tobacco use Status Tobacco use date assessed 09/01/24 09/01/24 12:41 Patient Tobacco Use Status Former Tobacco user 09/01/24 12:34 e-Cigarette/Vaping Use Never Used 09/01/24 12:34 PHQ-9: PHQ-9 Score PHQ-9: Total score 2 09/01/24 13:21 Depression Screening Interpretation: Negative (Controlled on venlafaxine ER 75 mg daily.) Thrive Assessment: Date of Thrive Assessment Date Thrive assessed 08/25/24 09/01/24 12:34 Currently or been in a relationship where the following occur: No concerns reported Advance Care Planning discussion: Completed/Scanned Date of discussion: 09/01/24 Who was present: patient Forms completed: Health Care Proxy Time spent: 16-45 minutes Actual minutes spent: 3 Const General: no acute distress Orientation/consciousness: patient oriented x3 HENMT Head: Yes normal to inspection Ears: hearing grossly normal bilaterally, external ears normal, TM's normal bilaterally and EAC's normal Mouth: Normal oral and palatal mucosa present Eyes General: appearance normal, both eyes and all related structures Neck Neck: Yes no lymphadenopathy, Yes no meningeal signs and Yes supple Chest Breast/axilla palpation: normal palpation of the breasts Resp Effort & Inspection: normal respiratory effort Auscultation: clear to auscultation bilaterally Cardio Rhythm: regular rhythm Heart sounds: S1 normal heart sound present and S2 normal heart sound present GI Palpation (GI): Soft to palpation Auscultation: normal bowel sounds General: Yes no CVA tenderness and Yes deferred (Followed by OBGYN) Back/Spine/Pelvis Back: no CVA tenderness and No back tenderness Skin General skin exam: no rashes or lesions noted Neuro General: patient oriented x3, gait normal, tone normal, moves all extremities, Normal light touch and pain sensation, no meningeal signs, no focal motor deficits and CN's II-XI intact bilaterally Extrem General: Yes full ROM, Yes no joint enlargement, Yes no pedal edema, Yes no calf tenderness and Yes normal gait Psych Appearance: grossly normal and well kempt Mental Status: mental status grossly normal Speech and movement: Normal speech and movement present Affect: normal affect Attitude: cooperative Thought process: Normal thought process present Coding Level of Care Code Est Pt Prev Care 40-64y(60883) Diagnoses Annual visit for general adult medical examination with abnormal findings Z00.01 History of lobular carcinoma in situ (LCIS) of breast Z86.000 Dense breast tissue on mammogram R92.30 Family history of breast cancer in mother Z80.3 Advanced directives, counseling/discussion Z71.89 Abnormal uterine bleeding (AUB) N93.9 Anxiety F41.9 Recurrent cold sores B00.1 Hx of malignant neoplasm of skin Z85.828 Additional Codes Vital Signs *Quality* - Advance Care Planning discussion: Completed/Scanned ([id number]) Vital Signs *Quality* - Time spent: 16-45 minutes ([id number]) PHQ-9 - 20435 - PHQ-9 Billing: Yes ([id number]) MILAGRO-7 Assessment Billing - MILAGRO-7 Assessment Tool: MILAGRO-7 Assessment 93455 ([id number]) Assessment & Plan Assessment & Plan (1) Annual visit for general adult medical examination with abnormal findings: Code(s): Z00.01 - Encounter for general adult medical examination with abnormal findings (2) History of lobular carcinoma in situ (LCIS) of breast: Comment: right breast Code(s): Z86.000 - Personal history of in-situ neoplasm of breast Category: Medical (3) Dense breast tissue on mammogram: Code(s): R92.30 - Dense breasts, unspecified Category: Medical (4) Family history of breast cancer in mother: Code(s): Z80.3 - Family history of malignant neoplasm of breast Category: Medical (5) Advanced directives, counseling/discussion: Code(s): Z71.89 - Other specified counseling Plan: Initiated the conversation about Advanced Directives. Advanced Directives help patients prepare for current and future decisions about their medical treatment and place of care. Discussed with patient that it is a process where a patients current condition and prognosis are reviewed, their wishes for information regarding their illness are elicited, and likely medical dilemmas are presented and options discussed. Healthcare proxy form completed today. The form can be amended as needed, reviewed yearly and make changes as needed (6) Abnormal uterine bleeding (AUB): Code(s): N93.9 - Abnormal uterine and vaginal bleeding, unspecified Category: Medical (7) Anxiety: Code(s): F41.9 - Anxiety disorder, unspecified Category: Medical (8) Recurrent cold sores: Code(s): B00.1 - Herpesviral vesicular dermatitis Category: Medical (9) Hx of malignant neoplasm of skin: Comment: left forehead s/p MOH's , sees [facility] yearly Code(s): Z85.828 - Personal history of other malignant neoplasm of skin Category: Medical Plan This encounter involved establishing a comprehensive plan addressing multiple ongoing health concerns. For the patient's abnormal uterine bleeding, follow-up appointments are in place, and the current conservative management of uterine fibroids prioritized polyps monitoring. Regular breast cancer screenings with imaging are recommended given the robust family history, with further diagnostics guided by any ultrasound findings. The vitamin D deficiency is being addressed with daily supplements, and continued surveillance for cervix and uterine health is incorporated, following normal Pap smear results. The patient is up-to-date with COVID-19 vaccinations, with provision for a tetanus booster upon open skin exposure. Historical basal cell carcinoma sites are to be reevaluated regularly at dermatology follow-ups. Our interaction emphasized weight stabilization and maintenance through lifestyle management. Patient was informed and verbally consented to the use of an ambient scribe for clinic note documentation during this visit. Orders: Orders US breast RT complete 09/01/24 R92.30 - Dense breasts, unspecified, Z80.3 - Family history of malignant neoplasm of breast, Z86.000 - Personal history of in-situ neoplasm of breast Vitamin D 25-OH Total 09/01/24 N93.9 - Abnormal uterine and vaginal bleeding, unspecified, Z00.01 - Encounter for general adult medical examination with abnormal findings, Z13.1 - Encounter for screening for diabetes mellitus, Z13.220 - Encounter for screening for lipoid disorders, Z71.89 - Other specified counseling Basic Metabolic Panel Fasting 09/01/24 N93.9 - Abnormal uterine and vaginal bleeding, unspecified, Z00.01 - Encounter for general adult medical examination with abnormal findings, Z13.1 - Encounter for screening for diabetes mellitus, Z13.220 - Encounter for screening for lipoid disorders, Z71.89 - Other specified counseling Aspartate Amino Transferase 09/01/24 N93.9 - Abnormal uterine and vaginal bleeding, unspecified, Z00.01 - Encounter for general adult medical examination with abnormal findings, Z13.1 - Encounter for screening for diabetes mellitus, Z13.220 - Encounter for screening for lipoid disorders, Z71.89 - Other specified counseling Complete Blood Count Auto Diff 09/01/24 N93.9 - Abnormal uterine and vaginal bleeding, unspecified, Z00.01 - Encounter for general adult medical examination with abnormal findings, Z13.1 - Encounter for screening for diabetes mellitus, Z13.220 - Encounter for screening for lipoid disorders, Z71.89 - Other specified counseling US breast LT complete 09/01/24 R92.30 - Dense breasts, unspecified, Z80.3 - Family history of malignant neoplasm of breast, Z86.000 - Personal history of in-situ neoplasm of breast Lipid Panel 09/01/24 N93.9 - Abnormal uterine and vaginal bleeding, unspecified, Z00.01 - Encounter for general adult medical examination with abnormal findings, Z13.1 - Encounter for screening for diabetes mellitus, Z13.220 - Encounter for screening for lipoid disorders, Z71.89 - Other specified counseling Alanine Aminotransferase 09/01/24 N93.9 - Abnormal uterine and vaginal bleeding, unspecified, Z00.01 - Encounter for general adult medical examination with abnormal findings, Z13.1 - Encounter for screening for diabetes mellitus, Z13.220 - Encounter for screening for lipoid disorders, Z71.89 - Other specified counseling Referrals Cologuard Test Z12.11 - Encounter for screening for malignant neoplasm of colon, Z12.12 - Encounter for screening for malignant neoplasm of rectum Medications: Refilled venlafaxine ER 75 mg PO DAILY 90 caps 4RF F41.9 - Anxiety disorder, unspecified valacyclovir (Valtrex) 2,000 mg (2 x 1 gram) PO Q12H PRN 30 tabs 8RF cold sores B00.1 - Herpesviral vesicular dermatitis
[2024-09-01 12:38] VITALS: BP 112/76; PULSE 90; O2SAT 97; BMI 33.4
== END 2024-09-01 13:20 | disposition home or self-care (01) ==
PROVIDERS: PCP Internal Medicine; Visit Provider Internal Medicine
DX: Z00.01 Encounter for general adult medical examination with abnormal findings (principal); Z86.000 Personal history of in-situ neoplasm of breast; R92.30 Dense breasts, unspecified; Z80.3 Family history of malignant neoplasm of breast; Z71.89 Other specified counseling; N93.9 Abnormal uterine and vaginal bleeding, unspecified; F41.9 Anxiety disorder, unspecified; B00.1 Herpesviral vesicular dermatitis; Z85.828 Personal history of other malignant neoplasm of skin

== ENCOUNTER 2024-09-23 12:20 | Outpatient (AMB) | payer OTHER, SELFPAY ==
--- NOTE | 2024-09-23 12:21 | MHC.OFFVIS ---
Intake Visit Reasons: Hysteroscopy consult Aged Or Disabled Care Worker: Aged Or Disabled Care Worker Present Accompanied by: Self / Same As Patient Allergies duloxetine [From CYMBALTA] Allergy (Intermediate, Verified 09/23/24 12:21) TONGUE SORES Influenza Virus Vaccines [INFLUENZA VIRUS VACCINES] Allergy (Intermediate, Verified 09/23/24 12:21) ARM SWELLING Sulfa (Sulfonamide Antibiotics) Adverse Reaction (Unknown, Verified 09/23/24 12:21) shaky feeling bactrim Allergy (Mild, Uncoded 09/08/24 00:22) Palpitations HPI Comments Details: Presenting referred from June Vincent CNM for a sub endometrial cyst by ultrasound. The patient is complaining of heavy menstrual cycles associated with passage of blood clots and pelvic cramping. Pelvic Ultrasound done recently showed the following: Uterus: The uterus is anteverted, neutrally flexed, and measures 11.9 x 6.5 x 6.6 cm. Uterine volume = 267.3 mL. Cervix demonstrates several nabothian cysts but is otherwise normal. The double wall endometrial thickness is 0.9 mm. There is a small 0.3 cm subendometrial cyst, nonspecific. This is of doubtful clinical significance. Uterus demonstrates a central fundal subserosal fibroid measuring 3.1 x 2.6 x 2.3 cm (previously 2.4 x 2.2 x 1.9 cm). In addition, there is a right mid uterine segment subserosal fibroid measuring 1.9 x 1.8 x 2.1 cm, not previously imaged. No additional fibroids. Adnexa: Both ovaries are visualized. There is normal color flow to the adnexa. There is no ovarian torsion. There is no pelvic ascites or fluid collection. There are no adnexal masses. Right ovary measures 2.5 x 1.7 x 1.9 cm. Volume = 4.2 mL. Normal imaging appearance. Left ovary measures 3.3 x 2.5 x 2.8 cm. Volume = 12.1 mL. Normal imaging appearance. 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 Lobular carcinoma in situ (LCIS) of right breast IBS (irritable bowel syndrome) Anxiety Surgical History H/O abdominoplasty (02/11/21) History of bilateral breast reduction surgery (07/21/20) History of dilatation and curettage (1999) History of tonsillectomy History of section Family History Mother History of breast cancer Mental health disorder Maternal Grandfather History of skin cancer Unknown History of breast cancer, Onset Age: 35 Paternal Grandmother Diabetes Social History Household Members: Spouse and Children Housing: House Alcohol intake: never Patient Tobacco Use Status: Former Tobacco user Years Smoked: 10 yrs e-Cigarette/Vaping Use: Never Used Second Hand Smoke Exposure: No service: No Current occupational status: employed 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 occupational exposures/hazards: No Sexual orientation: Straight/Heterosexual Gender identity: Female Cognitive needs: No Hearing needs: No Vision needs: Yes Female Reproductive History Menstrual Age of Menarche: 11 Review of Systems Const All systems reviewed & are unremarkable except as noted in HPI and below Reports as per HPI and Reports no additional complaints GI Reports no additional complaints Reports no additional complaints Assessment & Plan Assessment & Plan (1) Uterine myoma: Code(s): D25.9 - Leiomyoma of uterus, unspecified Category: Medical Plan: Discussed with the patient the findings on pelvic ultrasound & the risk of myosarcoma; discussed with the patient the options of treatment including expectant management versus hysterectomy; the pros and cons, risks benefits of each approach were discussed with the patient including the fact that in cases of myosarcoma, surgical treatment can lead to early diagnosis and positively affects the prognosis; after further discussion, the patient decided to proceed with expectant management. Will repeat pelvic ultrasound periodically. Instructions given to patient to call in case any of the following occurs: pressure symptoms, abnormal uterine bleeding, pelvic pain; and to schedule a six-months pelvic ultrasound (order placed) and a follow-up appointment . All questions answered, the patient verbalized understanding and agreed with the plan . (2) Abnormal ultrasound of endometrium: Code(s): R93.5 - Abnormal findings on diagnostic imaging of other abdominal regions, including retroperitoneum Category: Medical Plan: Discussed with the patient the results of the ultrasound showing some endometrial cyst, differential diagnosis includes none significant finding, endometrial polyp or submucosal myoma. Recommended to the patient that the next step is an endometrial sampling via hysteroscopy D&C possible polypectomy versus endometrial biopsy to r/o endometrial pathology including hyperplasia or cancer. All the pros and cons risks and benefits of each approach were discussed with the patient, endometrial biopsy being less invasive, office procedure with less sensitivity and inability diagnose a polyp and removal versus hysteroscopy done under anesthesia more invasive more sensitive to endometrial cancer and possibility of diagnosing and endometrial polyp with the possibility of polypectomy. All questions were answered pt verbalized understanding and decided to proceed with endometrial biopsy. Instructions given the patient to schedule EMB within 1-2 weeks (3) Abnormal uterine bleeding (AUB): Code(s): N93.9 - Abnormal uterine and vaginal bleeding, unspecified Category: Medical Plan: CBC, TSH, FSH/LH, HCG, ordered. Discussed with the patient the different causes of abnormal bleeding including thyroid disorders, uterine and ovarian pathology, endometrial hyperplasia, carcinoma and other potential causes. Discussed with the patient the work up including CBC (to r/o anemia), TSH, FSH/LH, endometrial biopsy to r/o endometrial pathology. All questions answered and the patient verbalized understanding. Instructed the patient to schedule an appointment for an endometrial biopsy in 2 weeks. Orders: Orders TSH reflex Free T4 Today N93.9 - Abnormal uterine and vaginal bleeding, unspecified Lutenizing Hormone Today N93.9 - Abnormal uterine and vaginal bleeding, unspecified Follicle Stimulating Hormone Today N93.9 - Abnormal uterine and vaginal bleeding, unspecified Complete Blood Count no Diff Today N93.9 - Abnormal uterine and vaginal bleeding, unspecified US pelvic and transvaginal 6 Months D25.9 - Leiomyoma of uterus, unspecified Coding Level of Care Code Est Pt Level 3 (84366) Diagnoses Uterine myoma D25.9 Abnormal ultrasound of endometrium R93.5 Abnormal uterine bleeding (AUB) N93.9
== END 2024-09-23 12:51 | disposition home or self-care (01) ==
PROVIDERS: PCP Internal Medicine; Visit Provider Obstetrics & Gynecology
DX: D25.9 Leiomyoma of uterus, unspecified (principal); R93.5 Abnormal findings on diagnostic imaging of other abdominal regions, including retroperitoneum; N93.9 Abnormal uterine and vaginal bleeding, unspecified
CPT/HCPCS: 99213

== ENCOUNTER 2024-09-23 12:20 | Outpatient (REF) | payer OTHER, SELFPAY ==
[2024-09-23 13:30] LABS: Hematocrit 39.1 % (37.0-47.0); Hemoglobin 13.3 g/dl (12.0-16.0); Mean Corpuscular Hemoglobin 31.3 pg (27.0-33.0); Mean Platelet Volume 9.9 fL (9.4-12.3); Platelet Count 332 X10*3/uL (160-400); Red Blood Count 4.25 X10*6/uL (4.20-5.50); Red Cell Distribution Width 12.2 % (11.0-16.0); White Blood Count 9.8 X10*3/uL (4.8-10.8)
[2024-09-23 14:30] LABS: TSH reflex Free T4 1.79 uIU/mL (0.32-4.0)
[2024-09-24 23:33] LABS: Follicle Stimulating Hormone 5.5 mIU/mL; Lutenizing Hormone 8.4 mIU/mL
== END 2024-09-23 12:21 | disposition home or self-care (01) ==
LOC: HO.LAB 12:20
PROVIDERS: PCP Internal Medicine; Visit Provider Obstetrics & Gynecology
DX: N93.9 Abnormal uterine and vaginal bleeding, unspecified (principal); D25.9 Leiomyoma of uterus, unspecified; R93.5 Abnormal findings on diagnostic imaging of other abdominal regions, including retroperitoneum
CPT/HCPCS: 36415; 83001; 83002; 84443; 85027

== ENCOUNTER 2024-10-06 14:43 | Outpatient (REF) | payer OTHER, SELFPAY | END 2024-10-06 14:44 | disposition home or self-care (01) | LOC: HO.LNP 14:43 | PROVIDERS: PCP Internal Medicine; Visit Provider Obstetrics & Gynecology | DX: R93.5 Abnormal findings on diagnostic imaging of other abdominal regions, including retroperitoneum (principal); N93.9 Abnormal uterine and vaginal bleeding, unspecified; Z32.02 Encounter for pregnancy test, result negative | CPT/HCPCS: 58100; 81025; 88305 ==

== ENCOUNTER 2024-10-06 14:43 | Outpatient (AMB) | payer OTHER, SELFPAY ==
--- NOTE | 2024-10-06 14:51 | A.OFFVIS_ITS ---
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 Present (Leah Tony GABI) Accompanied by: Self / Same As Patient Allergies duloxetine [From CYMBALTA] Allergy (Intermediate, Verified 10/06/24 15:06) TONGUE SORES Influenza Virus Vaccines [INFLUENZA VIRUS VACCINES] Allergy (Intermediate, Verified 10/06/24 15:06) ARM SWELLING Sulfa (Sulfonamide Antibiotics) Adverse Reaction (Unknown, Verified 10/06/24 15:06) shaky feeling bactrim Allergy (Mild, Uncoded 10/06/24 15:06) Palpitations Is last menstrual period known: Yes Last menstrual period: 09/30/24 HPI Comments Details: Presenting for EMB [facility] Medical History History of Mohs micrographic surgery for skin cancer Hx of malignant neoplasm of skin Dense breast tissue on mammogram Family history of breast cancer in mother History of lobular carcinoma in situ (LCIS) of breast Hair loss Peripheral venous insufficiency Plantar fasciitis 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 Lobular carcinoma in situ (LCIS) of right breast IBS (irritable bowel syndrome) Anxiety Surgical History H/O abdominoplasty (02/11/21) History of bilateral breast reduction surgery (07/21/20) History of dilatation and curettage (1999) History of tonsillectomy History of section Family History Mother History of breast cancer Mental health disorder Maternal Grandfather History of skin cancer Unknown History of breast cancer, Onset Age: 35 Paternal Grandmother Diabetes Social History Household Members: Spouse and Children Housing: House Alcohol intake: never Patient Tobacco Use Status: Former Tobacco user Years Smoked: 10 yrs e-Cigarette/Vaping Use: Never Used Second Hand Smoke Exposure: No service: No Current occupational status: employed 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 occupational exposures/hazards: No Sexual orientation: Straight/Heterosexual Gender identity: Female Cognitive needs: No Hearing needs: No Vision needs: Yes Female Reproductive History Menstrual Age of Menarche: 11 Date of last menstrual period: 09/30/24 Review of Systems Const All systems reviewed & are unremarkable except as noted in HPI and below Reports as per HPI and Reports no additional complaints GI Reports no additional complaints Reports no additional complaints Physical Exam Vital Signs: Last Vital Signs BP 118/72 10/06/24 15:00 BMI result Body Mass Index 33.4 Office Procedures Endometrial Biopsy Details: The patient was counseled regarding the indication and benefits of endometrial sampling to rule out endometrial pathology including not limited to endometrial hyperplasia or endometrial cancer and others; The alternatives (Either do nothing vs. hysteroscopy D&C) & the risks were discussed with the patient including but not limited: pain, uterine perforation, bleeding, infection, poss ible injury to bladder, bowel, ureter, possible need for blood transfusion with all its possible risks. The patient verbalized understanding all questions answered and signed consent. Urine test done in the office was negative The patient was placed into the dorsal lithotomy position; a speculum was inserted in the vagina. Using aseptic technique for the procedure, the cervix was cleansed with Betadine. The anterior lip of the cervix was grasped with a single tooth tenaculum. The uterus was sounded to 7 cm with a 4 mm Pipelle was used. Tissues samples were obtained and placed in formalin, in a patient labeled container and sent to the pathology department. At the end of the procedure, there was minimal bleeding noted The patient tolerated the procedure well and was discharged in good condition with the following instructions: Nothing in the vagina until the bleeding stops. No sex until the bleeding stops, to call if any of the following occurs: fever (>100.4), flu-like symptoms, abdominal pain, heavy bleeding, four smelling vaginal discharge. The patient was instructed to schedule a Follow up appointment in 2 weeks to discuss pathology results of the biopsy and treatment options. This note was generated with a voice recognition program. Some errors may have been overlooked during the review of this note. Sometimes these errors may affect the content or meaning of a given sentence. 15350-Oadmkdujimp Biopsy Results AMB Test Urine AMB Test Urine Negative Last Edit by Leah Tony CMA on 15:08 Results Reviewed Results Reviewed: Laboratory Last Values Tst Clinic Negative 10/06/24 15:08 Assessment & Plan Assessment & Plan (1) Abnormal uterine bleeding (AUB): Code(s): N93.9 - Abnormal uterine and vaginal bleeding, unspecified Category: Medical Plan: EMB done, see procedure note Orders: Orders AMB Endometrial Biopsy Today N93.9 - Abnormal uterine and vaginal bleeding, unspecified AMB HCG Urine Test Today Z32.02 - Encounter for test, result negative Coding Level of Care Code Procedure Only Diagnoses Abnormal uterine bleeding (AUB) N93.9 CPT Codes Endometrial Biopsy - CPT: 85335-Yjywlqjivpw Biopsy ([id number])
[2024-10-06 15:00] VITALS: BP 118/72; BMI 33.4
== END 2024-10-06 15:33 | disposition home or self-care (01) ==
LOC: HO.HWS 14:43
PROVIDERS: PCP Internal Medicine; Visit Provider Obstetrics & Gynecology
DX: N93.9 Abnormal uterine and vaginal bleeding, unspecified (principal); Z32.02 Encounter for pregnancy test, result negative
CPT/HCPCS: 58100

== ENCOUNTER 2024-10-17 10:07 | Outpatient (AMB) | payer OTHER, SELFPAY ==
--- NOTE | 2024-10-17 10:07 | MHC.OFFVIS ---
Intake Visit Reasons: EMB results Allergies duloxetine [From CYMBALTA] Allergy (Intermediate, Verified 10/06/24 15:06) TONGUE SORES Influenza Virus Vaccines [INFLUENZA VIRUS VACCINES] Allergy (Intermediate, Verified 10/06/24 15:06) ARM SWELLING Sulfa (Sulfonamide Antibiotics) Adverse Reaction (Unknown, Verified 10/06/24 15:06) shaky feeling bactrim Allergy (Mild, Uncoded 10/06/24 15:06) Palpitations HPI Comments Details: The patient is presenting for follow-up to discuss the results of her abnormal uterine bleeding workup and options of treatment. The following workup was done.: H&H= 13.3/39.1 TSH, hCG, GC and chlamydia were negative. FSH/LH= 5.4/8.4 Endometrial biopsy pathology showed the following: Benign proliferative endometrium with ectatic vessels and focal breakdown; no atypia or carcinoma Co testing was done in 02/03 was negative. Mammogram was negative. Pelvic ultrasound showed the following: Uterus: The uterus is anteverted, neutrally flexed, and measures 11.9 x 6.5 x 6.6 cm. Uterine volume = 267.3 mL. Cervix demonstrates several nabothian cysts but is otherwise normal. The double wall endometrial thickness is 0.9 mm. There is a small 0.3 cm subendometrial cyst, nonspecific. This is of doubtful clinical significance. Uterus demonstrates a central fundal subserosal fibroid measuring 3.1 x 2.6 x 2.3 cm (previously 2.4 x 2.2 x 1.9 cm). In addition, there is a right mid uterine segment subserosal fibroid measuring 1.9 x 1.8 x 2.1 cm, not previously imaged. No additional fibroids. Adnexa: Both ovaries are visualized. There is normal color flow to the adnexa. There is no ovarian torsion. There is no pelvic ascites or fluid collection. There are no adnexal masses. Right ovary measures 2.5 x 1.7 x 1.9 cm. Volume = 4.2 mL. Normal imaging appearance. Left ovary measures 3.3 x 2.5 x 2.8 cm. Volume = 12.1 mL. Normal imaging appearance. 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 Lobular carcinoma in situ (LCIS) of right breast IBS (irritable bowel syndrome) Anxiety Surgical History H/O abdominoplasty (02/11/21) History of bilateral breast reduction surgery (07/21/20) History of dilatation and curettage (1999) History of tonsillectomy History of section Family History Mother History of breast cancer Mental health disorder Maternal Grandfather History of skin cancer Unknown History of breast cancer, Onset Age: 35 Paternal Grandmother Diabetes Social History Household Members: Spouse and Children Housing: House Alcohol intake: never Patient Tobacco Use Status: Former Tobacco user Years Smoked: 10 yrs e-Cigarette/Vaping Use: Never Used Second Hand Smoke Exposure: No service: No Current occupational status: employed 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 occupational exposures/hazards: No Sexual orientation: Straight/Heterosexual Gender identity: Female Cognitive needs: No Hearing needs: No Vision needs: Yes Female Reproductive History Menstrual Age of Menarche: 11 Review of Systems Const All systems reviewed & are unremarkable except as noted in HPI and below Reports as per HPI and Reports no additional complaints GI Reports no additional complaints Reports no additional complaints Telehealth Telehealth Telehealth Platform: Telephone Location of provider rendering services: practice address Location of patient: address on file Patient Identification confirmed using: Name, : Yes Telehealth method: video Patient verbally consented to treatment: Yes Patient verbally consented to billing insurance company: Yes Patient informed of any privacy concerns related to visit: Yes Minutes spent on Phone/Video with Pt.: 8 Assessment & Plan Assessment & Plan (1) Abnormal uterine bleeding (AUB): Comment: History of LCIS Code(s): N93.9 - Abnormal uterine and vaginal bleeding, unspecified Category: Medical Plan: Discussed with the patient the results of the work up done and options of treatment including Lysteda, BCP's, Mirena IUD (both increase the risk of breast cancer, the patient has LCIS), uterine artery embolization, endometrial ablation and hysterectomy. All pros, cons, risks and benefits if each option was discussed with the patient and the patient decided to think about it and get back to us. All questions answered the patient verbalized understanding. (2) Uterine myoma: Code(s): D25.9 - Leiomyoma of uterus, unspecified Category: Medical Plan: Discussed with the patient the findings on pelvic ultrasound & the risk of myosarcoma; in addition reviewed with the patient that malignancy and pre malignancy cannot be ruled out without hysterectomy for pathological evaluation ; furthermore, explained to the patient the limitation of pelvic ultrasound and endometrial biopsy in the setting. Discussed with the patient the options of treatment including expectant management versus hysterectomy; the pros and cons, risks benefits of each approach were discussed with the patient including the fact that in cases of myosarcoma, surgical treatment can lead to early diagnosis and positively affects the prognosis; after further discussion, the patient decided to proceed with expectant management. Will repeat pelvic ultrasound periodically. Instructions given to patient to call in case any of the following occurs: pressure symptoms, abnormal uterine bleeding, pelvic pain; and to schedule a six-months pelvic ultrasound (order placed) and a follow-up appointment . All questions answered, the patient verbalized understanding and agreed with the plan . I spent a total of 20 minutes reviewing the chart, talking to the patient via video and documenting in the medical record. Orders: Orders US pelvic and transvaginal 6 Months D25.9 - Leiomyoma of uterus, unspecified Coding Level of Care Code Tele Est Pt Level 3 (42859) Diagnoses Abnormal uterine bleeding (AUB) N93.9 Uterine myoma D25.9
== END 2024-10-17 10:37 | disposition home or self-care (01) ==
LOC: HO.HWS 10:07
PROVIDERS: PCP Internal Medicine; Visit Provider Obstetrics & Gynecology
DX: N93.9 Abnormal uterine and vaginal bleeding, unspecified (principal); D25.9 Leiomyoma of uterus, unspecified
CPT/HCPCS: 99213

== ENCOUNTER → 2024-10-17 10:07 | Outpatient (BNVA) | payer OTHER, SELFPAY | PROVIDERS: PCP Internal Medicine; Visit Provider Obstetrics & Gynecology ==

== ENCOUNTER 2024-10-24 08:15 | Outpatient (REF) | payer OTHER, SELFPAY ==
--- NOTE | ~2024-10-24 | US_ITS ---
EXAMINATION: US SCREENING ULTRASOUND BREAST, BILATERAL CLINICAL INFORMATION: Dense breasts on mammography. Screening ultrasound. COMPARISON: None available. TECHNIQUE: Ultrasound is performed using grayscale imaging and color Doppler. Imaging is performed to include the four quadrants and retroareolar region. Both breasts are imaged. FINDINGS: Right breast: There is no suspicious finding by ultrasound. There is no solid mass or focal architectural abnormality. Left breast: There is no suspicious finding by ultrasound. There is no solid mass or focal architectural abnormality. US/US breast BI complete IMPRESSION: No suspicious findings on screening breast ultrasound. ASSESSMENT: BI-RADS 1 - Negative RECOMMENDATION: 1 year F/U This patient's information was entered into a reminder system with a target due date for their next mammogram. Electronically signed by: Batsheva Medellin DO 10/24/2024 09:21 AM EDT
== END 2024-10-24 08:16 | disposition home or self-care (01) ==
LOC: HO.MAMMO 08:15
PROVIDERS: PCP Internal Medicine; Visit Provider Internal Medicine
DX: R92.30 Dense breasts, unspecified (principal); Z80.3 Family history of malignant neoplasm of breast; Z86.000 Personal history of in-situ neoplasm of breast
CPT/HCPCS: 76641

== ENCOUNTER → 2024-10-24 08:15 | Outpatient (BNV) | payer OTHER, SELFPAY | PROVIDERS: PCP Internal Medicine; Visit Provider Internal Medicine | DX: R92.30 Dense breasts, unspecified (principal) | CPT/HCPCS: 76641 ==

== ENCOUNTER 2024-11-25 07:49 | Outpatient (AMB) | payer OTHER, SELFPAY ==
--- NOTE | 2024-11-25 07:49 | MHC.OFFVIS ---
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 Information Interpreted: non-clinical & clinical Allergies duloxetine [From CYMBALTA] Allergy (Intermediate, Verified 10/06/24 15:06) TONGUE SORES Influenza Virus Vaccines [INFLUENZA VIRUS VACCINES] Allergy (Intermediate, Verified 10/06/24 15:06) ARM SWELLING Sulfa (Sulfonamide Antibiotics) Adverse Reaction (Unknown, Verified 10/06/24 15:06) shaky feeling bactrim Allergy (Mild, Uncoded 10/06/24 15:06) Palpitations HPI Comments Details: The patient is schedule telehealth visit to discuss options of treatment for AUB and dysmenorrhea History of LCIS Lifetime Breast cancer risk with TC model 56% PFSH Medical History History of Mohs micrographic surgery for skin cancer Hx of malignant neoplasm of skin Dense breast tissue on mammogram Family history of breast cancer in mother History of lobular carcinoma in situ (LCIS) of breast Hair loss Peripheral venous insufficiency Plantar fasciitis 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 Lobular carcinoma in situ (LCIS) of right breast IBS (irritable bowel syndrome) Anxiety Surgical History H/O abdominoplasty (02/11/21) History of bilateral breast reduction surgery (07/21/20) History of dilatation and curettage (1999) History of tonsillectomy History of section Family History Mother History of breast cancer Mental health disorder Maternal Grandfather History of skin cancer Unknown History of breast cancer, Onset Age: 35 Paternal Grandmother Diabetes Social History Household Members: Spouse and Children Housing: House Alcohol intake: never Patient Tobacco Use Status: Former Tobacco user Years Smoked: 10 yrs e-Cigarette/Vaping Use: Never Used Second Hand Smoke Exposure: No service: No Current occupational status: employed 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 occupational exposures/hazards: No Sexual orientation: Straight/Heterosexual Gender identity: Female Cognitive needs: No Hearing needs: No Vision needs: Yes Female Reproductive History Menstrual Age of Menarche: 11 Review of Systems Const All systems reviewed & are unremarkable except as noted in HPI and below Reports as per HPI and Reports no additional complaints GI Reports no additional complaints Reports no additional complaints Telehealth Telehealth Telehealth Platform: Telephone Location of provider rendering services: practice address Location of patient: address on file Patient Identification confirmed using: Name, : Yes Telehealth method: video Patient verbally consented to treatment: Yes Patient verbally consented to billing insurance company: Yes Patient informed of any privacy concerns related to visit: Yes Minutes spent on Phone/Video with Pt.: 18 Assessment & Plan Assessment & Plan (1) Abnormal uterine bleeding (AUB): Comment: History of LCIS Code(s): N93.9 - Abnormal uterine and vaginal bleeding, unspecified Category: Medical Plan: Discussed with the patient the results of the work up done and options of treatment including Lysteda, BCP's, Mirena IUD, endometrial ablation and hysterectomy. All pros, cons, risks and benefits if each option was discussed with the patient and the patient decided to go ahead with Lysteda , so a more detailed discussion re: Lysteda including mechanism of action, benefits, risks including but not limited to thrombosis and strokes, Instructions were given on how to use, 2 tablets p.o. 3 times a day day 1 up to 3-5 days of menses and to schedule a 3 months follow-up appointment. The patient verbalized understanding and agreed with the plan. (2) History of lobular carcinoma in situ (LCIS) of breast: Comment: right breast Code(s): Z86.000 - Personal history of in-situ neoplasm of breast Category: Medical Plan: Discussed with the patient her increased risk for Breast ca. The lifetime risk of breast cancer based on the Tyrer-Cuzick Model is 56 % Recommended Intensification of breast Cancer screening with annual MRI breast in addition to annual mammogram and MRI alternating every 6 months. Mammogram done recently. Will refer to Dr Diane for regular surveillance, in addition to counseling regarding Chemoprevention strategies All questions answered, the patient verbalized understanding and agreed with the plan I spent a total of 20 minutes reviewing the chart, talking to the patient via video and documenting in the medical record. Orders: Referrals General Surgery Referral Z91.89 - Other specified personal risk factors, not elsewhere classified Medications: New tranexamic acid Start 1st day of menses and take it up to 3-5 days of menses. 1,300 mg (2 x 650 mg) PO TID 5 days 30 tabs 3RF Coding Level of Care Code Tele Est Pt Level 3 (51654) Diagnoses Abnormal uterine bleeding (AUB) N93.9 History of lobular carcinoma in situ (LCIS) of breast Z86.000
--- OUTSIDE RECORDS SUMMARY | 2024-11-25 07:51 | XMS_ITS | Continuity of Care Document ---
Author Organization 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 [address] [address], [place], [place], [id number], [place]. tel:[phone] Referring Provider: Nikia Kearney, [address] [place] [address], [place], [address]. tel:[phone] [facility] MD DRUMMOND, [address] [place] [address] Dr Beckwith [address], [place], [id number], [place] tel:[phone] [place] Encounter for cosmetic surgery 3 Ady Bonner. [address] [address], [place], [place], [id number], [place]. tel:[phone] Referring Provider: Nikia Kearney, [address] [place] [address], [place], [address]. tel:[phone] Office/Outpt E&M Established 15 Mins [facility] MD DRUMMOND, [address] [place] [address] Dr Beckwith [address], [place], [id number], [place] tel:[phone] [facility] Venous insufficiency (chronic) (peripheral) 3 Caio OCONNOR FACS RVT SANDIP Jeffers. [address] [address], [place], [address], [place]. tel:[phone] Referring Provider: Nikia Kearney, [address] [place] [address], [address]. 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 [address] [facility], [address], [place], [place], [id number], [place]. tel:[phone] Referring Provider: Nikia Kearney, [address] [place] [address], [place], [address]. tel:[phone] [facility] MD DRUMMOND, [address] [place] [address] Dr Beckwith [address], [id number], [place] tel:[phone] [place] Encntr for f/u exam aft trtmt for cond oth than malig neoplmVenous insufficiency (chronic) (peripheral) 3 Caio OCONNOR FACS T SANDIP Jeffers. [address] [address], [place], [address], [place]. tel:[phone] Referring Provider: Nikia Kearney, [address] [place] [address], [place], [address]. tel:[phone] [facility] MD DRUMMOND, [address] [place] [address] Dr Beckwith [address], [id number], [place] tel:[phone] [place] - [place] Venous insufficiency (chronic) (peripheral) 3 Caio OCONNOR FACS T SANDIP Jeffers. [address] [address], [place], [address], [place]. tel:[phone] Referring Provider: Nikia Kearney, [address] [place] [address], [place], [address]. tel:[phone] [facility] MD DRUMMOND, [address] [place] [address] Dr Beckwith [address], [id number], [place] tel:[phone] [facility] Venous insufficiency (chronic) (peripheral) 3 Caio OCONNOR FACS Marilee Jeffers. [address] [facility], [address], [place], [address], [place]. tel:[phone] Referring Provider: Nikia Rojas MD Caio, [address] [place] [address], [address]. tel:[phone] [facility], [address] [place] [address] [address], [id number], [place] tel:[phone] [facility] - [place] No Information 3 Caio OCONNOR FACS Marilee Jeffers. [address] [place] [address], Suite [facility], [place], [address], [place]. tel:[phone] Referring Provider: Nikia Kearney, [address] [place] [address], [address]. tel:[phone] [facility] MD DRUMMOND, [address] [place] [address] [address], [id number], [place] tel:[phone] CVR - [facility] Varicose veins of right low extrm w oth complications 3 Caio OCONNOR FACS Marilee Jeffers. [address] [place] [address], [address], [place], [address], [place]. tel:[phone] Referring Provider: Nikia Kearney, [address] [place] [address], [place], [address]. tel:[phone] Kat[facility] Espino[facility] MD DRUMMOND, [address] [place] [address] Dr Beckwith [address], [id number], [place] tel:[phone] CVR - [facility] Encntr for f/u exam aft trtmt for cond oth than malig neoplmVenous insufficiency (chronic) (peripheral) 3 Caio OCONNOR FACS T RPNIRAV Jeffers. [address] [place] [address], [place], [address], [place]. tel:[phone] Referring Provider: Nikia Kearney, [address], [address]. tel:[phone] [facility], [address] [place] [address] [facility] [address], [id number], [place] tel:[phone] CV[place] - [place] Venous insufficiency (chronic) (peripheral) 3 Caio OCONNOR FACS Marilee NIRAV Jeffers. [address] [place] [address], [place], [address], [place]. tel:[phone] Referring Provider: Nikia Kearney, [address] [place] [address], [address]. tel:[phone] [facility], [address] [place] [address] [facility] [address], [place], [id number], [place] tel:[phone] CV[place] - [place] Venous insufficiency (chronic) (peripheral) 3 Caio OCONNOR FACS Marilee NIRAV Jeffers. [address] [place] [address], [place], [address], [place]. tel:[phone] Referring Provider: Nikia Kearney, [address] [place] [address], [address]. tel:[phone] Family History Family Member Type Diagnosis Age At Onset No Information Payers Payer name Insurance type Covered green party ID Authoriza tion(s) Self Pay 09 [...]
== END 2024-11-25 08:31 | disposition home or self-care (01) ==
LOC: HO.HWS 07:49
PROVIDERS: PCP Internal Medicine; Visit Provider Obstetrics & Gynecology
DX: N93.9 Abnormal uterine and vaginal bleeding, unspecified (principal); Z86.000 Personal history of in-situ neoplasm of breast
CPT/HCPCS: 99213

== ENCOUNTER 2024-11-28 08:38 | Outpatient (REF) | payer OTHER, SELFPAY ==
--- OUTSIDE RECORDS SUMMARY | 2024-11-28 09:41 | XMS_ITS | Continuity of Care Document ---
Author Organization [facility] Address 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 [address] [address], [place], [place], [id number], [place]. tel:[phone] Referring Provider: Nikia Kearney, [address] [place] [address], [place], [address]. tel:[phone] [facility] MD DRUMMOND, [address] [place] [address] Dr Beckwith [address], [place], [id number], [place] tel:[phone] [facility] - [place] Encounter for cosmetic surgery 3 Ady Bonner. [address] [address], [place], [place], [id number], [place]. tel:[phone] Referring Provider: Niika Kearney, [address] [place] [address], [place], [address]. tel:[phone] Office/Outpt E&M Established 15 Mins [facility] MD DRUMMOND, [address] [place] [address] Dr Beckwith [address], [place], [id number], [place] tel:[phone] [place] Venous insufficiency (chronic) (peripheral) 3 Caio OCONNOR FACS RVT SANDIP Jeffers. [address] [address], [place], [address], [place]. tel:[phone] Referring Provider: Nikia Kearney, [address] [place] [address], [address]. 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 [address] [facility], [address], [place], [place], [id number], [place]. tel:[phone] Referring Provider: Nikia Kearney, [address] [place] [address], [place], [address]. tel:[phone] [facility] MD DRUMMOND, [address] [place] [address] Dr Beckwith 1000[address] 1000[place], [id number], [place] tel:[phone] [facility] - [place] Encntr for f/u exam aft trtmt for cond oth than malig neoplmVenous insufficiency (chronic) (peripheral) 3 Caio OCONNOR FACS T SANDIP Jeffers. [address] [address], [place], [address], [place]. tel:[phone] Referring Provider: Nikia Kearney, [address] [place] [address], [place], [address]. tel:[phone] [facility] MD DRUMMOND, [address] [place] [address] Dr Beckwith [address] 1000[place], [id number], [place] tel:[phone] CV[facility] - [place] Venous insufficiency (chronic) (peripheral) 3 Caio OCONNOR FACS T SANDIP Jeffers. [address] [address], [place], [address], [place]. tel:[phone] Referring Provider: Nikia Kearney, [address] [place] [address], [place], [address]. tel:[phone] [facility] MD DRUMMOND, [address] [place] [address] Dr Beckwith [address], [id number], [place] tel:[phone] CV[place] - [place] Venous insufficiency (chronic) (peripheral) 3 Caio OCONNOR FACS Marilee Jeffers. [address] [facility], [address], [place], [address], [place]. tel:[phone] Referring Provider: Nikia Rojas MD Caio, [address] [place] [address], [address]. tel:[phone] [facility], [address] [place] [address] [address], [id number], [place] tel:[phone] CV[facility] - [place] No Information 3 Caio OCONNOR FACS Marilee Jeffers. [address] [place] [address], Suite [facility], [place], [address], [place]. tel:[phone] Referring Provider: Nikia Kearney, [address] [place] [address], [address]. tel:[phone] [facility] Esp[facility] Nond[facility] MD DRUMMOND, [address] [place] [address] [address] 1000[place], [id number], [place] tel:[phone] CVR - [facility] Varicose veins of right low extrm w oth complications 3 Caio OCONNOR FACS Marilee Jeffers. [address] [place] [address], [address], [place], [address], [place]. tel:[phone] Referring Provider: Nikia Kearney, [address] [place] [address], [place], [address]. tel:[phone] [facility] MD DRUMMOND, [address] [place] [address] Dr Beckwith [address] 1000[place], [id number], [place] tel:[phone] CVR - [facility] Encntr for f/u exam aft trtmt for cond oth than malig neoplmVenous insufficiency (chronic) (peripheral) 3 Caio OCONNOR FACS T RPNIRAV Jeffers. [address] [place] [address], [place], [address], [place]. tel:[phone] Referring Provider: Nikia Kearney, [address], [address]. tel:[phone] [facility], [address] [place] [address] [facility] 1000[address] 1000[place], [id number], [place] tel:[phone] CV[place] - [place] Venous insufficiency (chronic) (peripheral) 3 Caio OCONNOR FACS Marilee NIRAV Jeffers. [address] [place] [address], [place], [address], [place]. tel:[phone] Referring Provider: Nikia Kearney, [address] [place] [address], [address]. tel:[phone] [facility], [address] [place] [address] [facility] [address], [place], [id number], [place] tel:[phone] [facility] - [place] Venous insufficiency (chronic) (peripheral) 3 Caio OCONNOR FACS Marilee NIRAV Jeffers. [address] [place] [address], [place], [address], [place]. tel:[phone] Referring Provider: Nikia Kearney, [address] [place] [address], [address]. tel:[phone] Family History Family Member Type Diagnosis Age At Onset No Information Payers Payer name Insurance type Covered libertarian ID Authoriza tion(s) Self Pay 09 Social [...]
[2024-11-28 14:33] LABS: Adenovirus PCR Not Detected (Not Detect.); Bordetella parapertussis PCR Not Detected (Not Detect.); Bordetella pertussis PCR Not Detected (Not Detect.); Chlamydia pneumoniae PCR Not Detected (Not Detect.); Coronavirus 229E PCR Not Detected (Not Detect.); Coronavirus HKU1 PCR Not Detected (Not Detect.); Coronavirus NL63 PCR Not Detected (Not Detect.); Coronavirus OC43 PCR Not Detected (Not Detect.); Human metapneumovirus PCR Not Detected (Not Detect.); Influenza A PCR Not Detected (Not Detect.); Influenza B PCR Not Detected (Not Detect.); Mycoplasma pneumoniae PCR Not Detected (Not Detect.); Parainfluenza 1 PCR Not Detected (Not Detect.); Parainfluenza 2 PCR Not Detected (Not Detect.); Parainfluenza 3 PCR Not Detected (Not Detect.); Parainfluenza 4 PCR Not Detected (Not Detect.); RSV PCR Not Detected (Not Detect.); Rhino/Enterovirus PCR Not Detected (Not Detect.)
[2024-11-28 15:00] LABS: Influenza A H1 PCR Not Detected (Not Detect.); Influenza A H1-2009 PCR Not Detected (Not Detect.); Influenza A H3 PCR Not Detected (Not Detect.); SARS-CoV-2 PCR Not Detected (Not Detect.)
== END 2024-11-28 08:39 | disposition home or self-care (01) ==
LOC: HO.LAB 08:38
PROVIDERS: PCP Internal Medicine; Visit Provider Physician Assistant
DX: J06.9 Acute upper respiratory infection, unspecified (principal)
CPT/HCPCS: 87633; 87880

== ENCOUNTER 2024-11-28 08:38 | Outpatient (AMB) | payer OTHER, SELFPAY ==
[2024-11-28 08:52] VITALS: BP 110/80; PULSE 88; RESP 16; TEMP 36.9; O2SAT 97; BMI 32.3
--- NOTE | 2024-11-28 08:52 | AM.OFFWIN_ITS ---
Intake Vital Signs 11/28/24 08:52 Height 5 ft 6 in Weight 200 lb 6 oz BMI 32.3 BP 110/80 Blood Pressure Location Rt brachial Position Sitting Respiration 16 Pulse 88 Pulse Source Pulse Oximeter Temp 98.4 F Temp Source Oral Pulse Oximetry (%) 97 Oxygen Delivery Method Room Air Intake Visit Reasons: EP sore throat Intake Note: Pt is today c/o sore throat and post nasal drip Patient Tobacco Use Status: Former Tobacco user Allergies duloxetine [From CYMBALTA] Allergy (Intermediate, Verified 11/28/24 09:08) TONGUE SORES Influenza Virus Vaccines [INFLUENZA VIRUS VACCINES] Allergy (Intermediate, Verified 11/28/24 09:08) ARM SWELLING Sulfa (Sulfonamide Antibiotics) Adverse Reaction (Unknown, Verified 11/28/24 09:08) shaky feeling bactrim Allergy (Mild, Uncoded 11/28/24 09:08) Palpitations HPI HPI Comments History of Present Illness Details History - The patient is a 49-year-old female pr esenting with respiratory symptoms, including sore throat, cough, and wheezing that started 3 days ago. - The symptoms have worsened over the pa st three days, leading to increased throat dryness and mild cough. - The patient denied fever or severe bod y aches. - There is a noted history of using an i nhaler once during a previous illness; however, no chronic respiratory conditions such as asthma or COPD have been diagnosed. - The patient expressed concern regardin g [facility], pressed for a timely resolution to her current symptoms. Physical Exam General: Cooperative, healthy appearing, comfortable and no acute distress Orientation/consciousness: Patient oriented x3 Limitations: No limitations Head: Normal to inspection Ears: Hearing grossly normal bilaterally, external ears normal and TM's normal bilaterally Nose: Normal external nose present, Normal nares present and No nasal discharge present Face and sinus: Normal facial exam and Yes sinuses nontender Mouth: Normal oral and palatal mucosa present and moist mucous membranes Throat: Yes tonsils normal, Yes uvula midline. Posterior oropharynx erythema Eyes: Appearance normal, both eyes and all related structures Neck: Normal visual inspection Respiratory: expiratory wheezes on the right side. Normal respiratory effort, able to speak in complete sentences, Actively coughing, no respiratory distress, not tachypneic, no tripod positioning and no use of accessory muscles. Cardiovascular: Regular rate and rhythm. 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 Lobular carcinoma in situ (LCIS) of right breast IBS (irritable bowel syndrome) Anxiety Surgical History H/O abdominoplasty (02/11/21) History of bilateral breast reduction surgery (07/21/20) History of dilatation and curettage (1999) History of tonsillectomy History of section Family History Mother History of breast cancer Mental health disorder Maternal Grandfather History of skin cancer Unknown History of breast cancer, Onset Age: 35 Paternal Grandmother Diabetes Social History Household Members: Spouse and Children Housing: House Alcohol intake: never Patient Tobacco Use Status: Former Tobacco user Years Smoked: 10 yrs e-Cigarette/Vaping Use: Never Used Second Hand Smoke Exposure: No service: No Current occupational status: employed 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 occupational exposures/hazards: No Sexual orientation: Straight/Heterosexual Gender identity: Female Cognitive needs: No Hearing needs: No Vision needs: Yes Female Reproductive History Menstrual Age of Menarche: 11 Review of Systems Const All systems reviewed & are unremarkable except as noted in HPI and below Physical Exam Vital Signs: Last Vital Signs Temp 98.4 F 11/28/24 08:52 Pulse 88 11/28/24 08:52 Resp 16 11/28/24 08:52 BP 110/80 11/28/24 08:52 Pulse Ox 97 11/28/24 08:52 Oxygen Delivery Method Room Air 11/28/24 08:52 BMI result Body Mass Index 32.3 Results AMB Rapid Strep AMB Rapid Strep Negative Last Edit by Mamta Vasques CMA on 11/28/24 09:14 Assessment & Plan Assessment & Plan (1) URI, acute: Code(s): J06.9 - Acute upper respiratory infection, unspecified Plan: VSS, pt well appearing and PE remarkable for wheezing on auscultation. Rapid strep is negative. I have obtained an expanded viral pathogen panel to evaluate for common respiratory viruses. If negative, an azithromycin Z-Loyd has been prescribed to treat potential bacterial infection. Patient knows to only start taking it if viral panel is negative. The azithromycin prescription will be utilized only if the panel results are negative for viral infection, due to its broad coverage of bacterial pathogens and minimal side effect profile. The patient is advised to take decongestant and antihistamines for symptom control as needed. Patient was informed and verbally consented to the use of an ambient scribe for clinic note documentation during this visit Orders: Orders Resp Pathogen Panel - [facility] Today J06.9 - Acute upper respiratory infection, unspecified AMB Rapid Strep Screen Today Z13.9 - Encounter for screening, unspecified Medications: New methylprednisolone PO PER PKG DIR for 6 days 21 ea 0RF azithromycin For 250 mg dose pack: take 500 mg today (day 1), then 250 mg for 4 days (days 2-5) PO 6 tabs 0RF Coding Level of Care Code Est Pt Level 3 (48053) Diagnoses URI, acute J06.9
--- OUTSIDE RECORDS SUMMARY | 2024-11-28 08:59 | XMS_ITS | Continuity of Care Document ---
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 [address] [address], [place], [place], [id number], [place]. tel:[phone] Referring Provider: Nikia Kearney, [address] [place] [address], [place], [address]. tel:[phone] [facility] MD DRUMMOND, [address] [place] [address] Dr Beckwith [address], [place], [id number], [place] tel:[phone] [place] Encounter for cosmetic surgery 3 Ady Bonner. [address] [address], [place], [place], [id number], [place]. tel:[phone] Referring Provider: Nikia Kearney, [address] [place] [address], [place], [address]. tel:[phone] Office/Outpt E&M Established 15 Mins [facility] MD DRUMMOND, [address] [place] [address] Dr Beckwith [address], [place], [id number], [place] tel:[phone] [place] Venous insufficiency (chronic) (peripheral) 3 Caio OCONNOR FACS RVT SANDIP Jeffers. [address] [address], [place], [address], [place]. tel:[phone] Referring Provider: Nikia Kearney, [address] [place] [address], [address]. 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 [address] [facility] [address], [address], [place], [place], [id number], [place]. tel:[phone] Referring Provider: Nikia Kearney, [address] [place] [address], [place], [address]. tel:[phone] [facility] MD DRUMMOND, [address] [place] [address] Dr Beckwith [address], [id number], [place] tel:[phone] [place] Encntr for f/u exam aft trtmt for cond oth than malig neoplmVenous insufficiency (chronic) (peripheral) 3 Caio OCONNOR FACS T SANDIP Jeffers. [address] [address], [place], [address], [place]. tel:[phone] Referring Provider: Nikia Kearney, [address] [place] [address], [place], [address]. tel:[phone] [facility] MD DRUMMOND, [address] [place] [address] Dr Beckwith [address], [id number], [place] tel:[phone] [place] Venous insufficiency (chronic) (peripheral) 3 Caio OCONNOR FACS T SANDIP Jeffers. [address] [address], [place], [address], [place]. tel:[phone] Referring Provider: Nikia Kearney, [address] [place] [address], [place], [address]. tel:[phone] [facility] MD DRUMMOND, [address] [place] [address] Dr Beckwith [address], [id number], [place] tel:[phone] [place] Venous insufficiency (chronic) (peripheral) 3 Caio OCONNOR FACS Marilee Jeffers. [address] [facility], [address], [place], [address], [place]. tel:[phone] Referring Provider: Nikia Rojas MD Caio, [address] [place] [address], [address]. tel:[phone] [facility], [address] [place] [address] [address], [id number], [place] tel:[phone] [place] No Information 3 Caio OCONNOR FACS Marilee Jeffers. [address] [place] [address], Suite [facility], [place], [address], [place]. tel:[phone] Referring Provider: Nikia Kearney, [address] [place] [address], [address]. tel:[phone] [facility] MD DRUMMOND, [address] [place] [address] [address], [id number], [place] tel:[phone] CVR - [facility] Varicose veins of right low extrm w oth complications 3 Caio OCONNOR FACS Marilee Jeffers. [address] [place] [address], [address], [place], [address], [place]. tel:[phone] Referring Provider: Nikia Kearney, [address] [place] [address], [place], [address]. tel:[phone] [facility] MD DRUMMOND, [address] [place] [address] Dr Beckwith [address] 1000[place], [id number], [place] tel:[phone] CVR - [facility] Encntr for f/u exam aft trtmt for cond oth than malig neoplmVenous insufficiency (chronic) (peripheral) 3 Caio OCONNOR FACS T RPNIRAV Jeffers. [address] [place] [address], [place], [address], [place]. tel:[phone] Referring Provider: Nikia Kearney, [address], [address]. tel:[phone] [facility], [address] [place] [address] [facility] 1000[address], [id number], [place] tel:[phone] [place] Venous insufficiency (chronic) (peripheral) 3 Caio OCONNOR FACS Marilee NIRAV Jeffers. [address] [place] [address], [place], [address], [place]. tel:[phone] Referring Provider: Nikia Kearney, [address] [place] [address], [address]. tel:[phone] [facility], [address] [place] [address] [facility] [address], [place], [id number], [place] tel:[phone] [facility] Venous insufficiency (chronic) (peripheral) 3 Caio OCONNOR FACS Marilee NIRAV Jeffers. [address] [place] [address], [place], [address], [place]. tel:[phone] Referring Provider: Nikia Kearney, [address] [place] [address], [address]. tel:[phone] Family History Family Member Type Diagnosis Age [...]
== END 2024-11-28 09:55 | disposition home or self-care (01) ==
PROVIDERS: PCP Internal Medicine; Visit Provider Physician Assistant
DX: Z13.9 Encounter for screening, unspecified (principal); J06.9 Acute upper respiratory infection, unspecified

== ENCOUNTER 2024-12-23 13:40 | Outpatient (AMB) | payer OTHER, SELFPAY ==
--- NOTE | 2024-12-23 13:40 | A.OFFVIS_ITS ---
Intake Visit Reasons: control consult Allergies duloxetine [From CYMBALTA] Allergy (Intermediate, Verified 11/28/24 09:08) TONGUE SORES Influenza Virus Vaccines [INFLUENZA VIRUS VACCINES] Allergy (Intermediate, Verified 11/28/24 09:08) ARM SWELLING Sulfa (Sulfonamide Antibiotics) Adverse Reaction (Unknown, Verified 11/28/24 09:08) shaky feeling bactrim Allergy (Mild, Uncoded 11/28/24 09:08) Palpitations HPI Comments Details: The patient is schedule telehealth visit to discuss options of family planning. 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 Lobular carcinoma in situ (LCIS) of right breast IBS (irritable bowel syndrome) Anxiety Surgical History H/O abdominoplasty (02/11/21) History of bilateral breast reduction surgery (07/21/20) History of dilatation and curettage (1999) History of tonsillectomy History of section Family History Mother History of breast cancer Mental health disorder Maternal Grandfather History of skin cancer Unknown History of breast cancer, Onset Age: 35 Paternal Grandmother Diabetes Social History Household Members: Spouse and Children Housing: House Alcohol intake: never Patient Tobacco Use Status: Former Tobacco user Years Smoked: 10 yrs e-Cigarette/Vaping Use: Never Used Second Hand Smoke Exposure: No service: No Current occupational status: employed 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 occupational exposures/hazards: No Sexual orientation: Straight/Heterosexual Gender identity: Female Cognitive needs: No Hearing needs: No Vision needs: Yes Female Reproductive History Menstrual Age of Menarche: 11 Review of Systems Const All systems reviewed & are unremarkable except as noted in HPI and below Reports as per HPI and Reports no additional complaints GI Reports no additional complaints Reports no additional complaints Telehealth Telehealth Telehealth Platform: Telephone Location of provider rendering services: practice address Location of patient: address on file Patient Identification confirmed using: Name, : Yes Telehealth method: video Patient verbally consented to treatment: Yes Patient verbally consented to billing insurance company: Yes Patient informed of any privacy concerns related to visit: Yes Minutes spent on Phone/Video with Pt.: 16 Assessment & Plan Assessment & Plan (1) Family planning: Code(s): Z30. - Encounter for other general counseling and advice on contraception Category: Social Hx Plan: Discussed with the patient the different options of control including control pills/Nuvaring, DMPA, different types of IUD ?s, sterilization. All the pros, cons, risks and benefits of each were discussed with the patient. The patient decided to go ahead with an IUD, so a more detailed discussion was carried on including types (Progesterone, Copper), mechanism of action, risks (infection, uterine perforation, failure with ectopic , septic AB, dysmenorrhea with Paraguard, others) benefits (efficient contraceptive method, hypo menorrhea with Progesterone IUD, others). Since the patient has family history of breast cancer and personal history of LCIS, recommended ParaGard IUD. Instructions given the patient to schedule ParaGard IUD insertion ridge since she is on her menstrual cycle I spent a total of 20 minutes reviewing the chart, talking to the patient via video and documenting in the medical record. Coding Level of Care Code Tele Est Pt Level 3 (70141) Diagnoses Family planning Z30.
--- OUTSIDE RECORDS SUMMARY | 2024-12-23 14:46 | XMS_ITS | Continuity of Care Document ---
Author Organization [facility] Address [address] [place] [address] Phone Care Team Providers Care Order Processing Clerk Name Role Phone Ha Staton Unavailable Unavailable [...] Diagnoses Date Provider Providers Copied on Encounter [facility] J[facility] MD DRUMMOND, [address] [place] [address] Dr Beckwith [address], [id number], tel:[phone] CV[place] Encounter for cosmetic surgery 3 Ady Bonner. [address] [address], [place], [place], [id number], [place]. tel:[phone] Referring Provider: Nikia Kearney, [address] [place] [address], [place], [address]. tel:[phone] [facility] For [facility] Jain MD DRUMMOND, [address] [place] [address] Dr Beckwith [address], [place], [id number], [place] tel:[phone] [place] Encounter for cosmetic surgery 3 Ady Bonner. [address] [address], [place], [place], [id number], [place]. tel:[phone] Referring Provider: Nikia Kearney, [address] [place] [address], [place], [address]. tel:[phone] Office/Outpt E&M Established 15 Mins [facility] MD DRUMMOND, [address] [place] [address] Dr Beckwith [address], [place], [id number], [place] tel:[phone] [place] Venous insufficiency (chronic) (peripheral) 3 Caio OCONNOR FACS RVT SANDIP Jeffers. [address] [address], [place], [address], [place]. tel:[phone] Referring Provider: Nikia Kearney, [address] [place] [address], [address]. 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 [address] [facility], [address], [place], [place], [id number], [place]. tel:[phone] Referring Provider: Nikia Kearney, [address] [place] [address], [place], [address]. tel:[phone] Katia For Vein Jain MD DRUMMOND, [address] [place] [address] Dr Beckwith 1000[address] 1000[place], [id number], [place] tel:[phone] CVR - [place] Encntr for f/u exam aft trtmt for cond oth than malig neoplmVenous insufficiency (chronic) (peripheral) 3 Caio OCONNOR FACS T SANDIP Jeffers. [address] [address], [place], [address], [place]. tel:[phone] Referring Provider: Nikia Kearney, [address] [place] [address], [place], [address]. tel:[phone] Katia For Vein Jain MD DRUMMOND, [address] [place] [address] Dr Beckwith 1000[address] 1000[place], [id number], [place] tel:[phone] CVR - [place] Venous insufficiency (chronic) (peripheral) 3 Caio OCONNOR FACS T SANDIP Jeffers. [address] [address], [place], [address], [place]. tel:[phone] Referring Provider: Nikia Kearney, [address] [place] [address], [place], [address]. tel:[phone] Katia Espinoza Vein Jain MD DRUMMOND, [address] [place] [address] Dr Beckwith 1000[address] 1000[place], [id number], [place] tel:[phone] CVR - [place] Venous insufficiency (chronic) (peripheral) 3 Caio OCONNOR FACS Marilee Jeffers. [address] [facility], [address], [place], [address], [place]. tel:[phone] Referring Provider: Nikia Rojas MD Caio, [address] [place] [address], [address]. tel:[phone] [facility], [address] [place] [address] [address] 1000[place], [id number], [place] tel:[phone] CVR - [place] No Information 3 Caio OCONNOR FACS Marilee Jeffers. [address] [place] [address], Suite [facility], [place], [address], [place]. tel:[phone] Referring Provider: Nikia Kearney, [address] [place] [address], [address]. tel:[phone] Katia Espinoza Vein Jain MD DRUMMOND, [address] [place] [address] [address] 1000[place], [id number], [place] tel:[phone] CVR - [facility] Varicose veins of right low extrm w oth complications 3 Caio OCONNOR FACS Marilee Jeffers. [address] [place] [address], [address], [place], [address], [place]. tel:[phone] Referring Provider: Nikia Kearney, [address] [place] [address], [place], [address]. tel:[phone] Katia Espnioza Vein Jain MD DRUMMOND, [address] [place] [address] Dr Beckwith 1000[address] 1000[place], [id number], [place] tel:[phone] CVR - [facility] Encntr for f/u exam aft trtmt for cond oth than malig neoplmVenous insufficiency (chronic) (peripheral) 3 Caio OCONNOR FACS T RPNIRAV Jeffers. [address] [place] [address], [place], [address], [place]. tel:[phone] Referring Provider: Nikia Kearney, [address], [address]. tel:[phone] [facility], [address] [place] [address] [facility] 1000[address] 1000[place], [id number], [place] tel:[phone] [place] Venous insufficiency (chronic) (peripheral) 3 Caio OCONNOR FACS Marilee NIRAV Jeffers. [address] [place] [address], [place], [address], [place]. tel:[phone] Referring Provider: Nikia Kearney, [address] [place] [address], [address]. tel:[phone] [facility], [address] [place] [address] [facility] [address] 1000, [place], [id number], [place] tel:[phone] CVR [place] Venous insufficiency (chronic) (peripheral) 3 Caio OCONNOR FACS Marilee NIRAV Jeffers. [address] [place] [address], [place], [address], [place]. tel:[phone] Referring Provider: Nikia Kearney, [address] [place] [address], [address]. tel:[phone] Family History Family Member Type Diagnosis Age [...]
== END 2024-12-23 14:42 | disposition home or self-care (01) ==
LOC: HO.HWS 13:40
PROVIDERS: PCP Internal Medicine; Visit Provider Obstetrics & Gynecology
DX: Z30.09 Encounter for other general counseling and advice on contraception (principal)
CPT/HCPCS: 99213

== ENCOUNTER 2024-12-25 09:56 | Outpatient (AMB) | payer OTHER, SELFPAY ==
--- NOTE | 2024-12-25 10:08 | A.OFFVIS_ITS ---
Vital Signs 12/25/24 10:16 Height 5 ft 6 in Weight 201 lb BMI 32.4 BP 119/72 Blood Pressure Location Lt brachial Position Sitting Pulse 76 Intake Visit Reasons: PHX BREAST CA SURVIELANCE Intake Note: Patient is seen in office for personal history of breast cancer. Pt c/o: was Dx with right breast cancer in the past, and was told by Dr Welsh to follow with us, does mammograms and ultrasounds yearly, currenty has no lump, bumps, redness, discharge or cocerns ref Anitha Clinical Data Coordinator Required: No Case Management Director: Case Management Director Present Accompanied by: Self / Same As Patient Allergies duloxetine [From CYMBALTA] Allergy (Intermediate, Verified 12/25/24 10:14) TONGUE SORES Influenza Virus Vaccines [INFLUENZA VIRUS VACCINES] Allergy (Intermediate, Verified 12/25/24 10:14) ARM SWELLING Sulfa (Sulfonamide Antibiotics) Adverse Reaction (Unknown, Verified 12/25/24 10:14) shaky feeling bactrim Allergy (Mild, Uncoded 12/25/24 10:14) Palpitations Medication List - Last Reconciled 12/25/24 by Romaine Diane MD biotin 250 mcg PO DAILY cholecalciferol (vitamin D3) 25 mcg PO DAILY multivitamin 1 tab PO DAILY valacyclovir (Valtrex) 2,000 mg (2 x 1 gram) PO Q12H PRN venlafaxine ER 75 mg PO DAILY HPI Comments Details: 49-year-old female patient, former patient of Dr. Maria returning for high risk breast examination. She has a prior history of LCIS of the right breast and subsequently underwent a right breast lumpectomy with needle localization on 06/30/2020. Pathology revealed benign breast tissue with biopsy site changes, fibrocystic change and focal pseudoangiomatous hyperplasia. No residual lobular neoplasm is seen; no carcinoma seen. She declined endocrine therapy for risk reduction as well as yearly breast MRIs due to anxiety. She underwent bilateral breast reduction surgery by Dr. Soni and tolerated this procedure well. She denies any current symptoms in the breasts and generally feels well. Her most recent mammogram dated 08/11/2024 revealed no mammographic evidence of malignancy (BI-RADS 2). She underwent a screening ultrasound of bilateral breast on 10/24/2024 which also revealed no sonographic evidence of malignancy (BI-RADS 1). Previously calculated Tyrer-Cuzick remaining lifetime risk of breast cancer was calculated at 30%. 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 Lobular carcinoma in situ (LCIS) of right breast IBS (irritable bowel syndrome) Anxiety Surgical History H/O abdominoplasty (02/11/21) History of bilateral breast reduction surgery (07/21/20) History of dilatation and curettage (1999) History of tonsillectomy History of section Family History Mother History of breast cancer Mental health disorder Maternal Grandfather History of skin cancer Unknown History of breast cancer, Onset Age: 35 Paternal Grandmother Diabetes Social History Household Members: Spouse and Children Housing: House Alcohol intake: never Patient Tobacco Use Status: Former Tobacco user Years Smoked: 10 yrs e-Cigarette/Vaping Use: Never Used Second Hand Smoke Exposure: No service: No Current occupational status: employed 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 occupational exposures/hazards: No Sexual orientation: Straight/Heterosexual Gender identity: Female Cognitive needs: No Hearing needs: No Vision needs: Yes Female Reproductive History Menstrual Age of Menarche: 11 Review of Systems Const All systems reviewed & are unremarkable except as noted in HPI and below Physical Exam Vital Signs: Last Vital Signs Pulse 76 12/25/24 10:16 BP 119/72 12/25/24 10:16 BMI result Body Mass Index 32.4 Const General: cooperative, healthy appearing, comfortable and no acute distress HEENT Head: Yes normocephalic and Yes atraumatic Neck Neck: Yes trachea midline and Yes supple Lymphatic: no lymphadenopathy noted Chest Other: Bilateral reduction mammoplasty incisions. Right breast with no new skin change, nipple discharge, nipple retraction, palpable mass, or enlarged lymph nodes. Left breast with no skin change other than as noted above at the 06:00 o'clock location, no nipple discharge, nipple retraction, palpable mass, or enlarged lymph nodes. GI Other: Palpable fullness in the lower abdomen consistent with a postoperative rectus hematoma. Well-healed abdominoplasty incisions without evidence of infection or ecchymosis. Inspection: Yes normal to inspection Skin Other: warm, dry, no rash Extrem General: Yes no clubbing, cyanosis or edema Assessment & Plan Assessment & Plan (1) Lobular carcinoma in situ (LCIS) of right breast: Code(s): D05.01 - Lobular carcinoma in situ of right breast Category: Medical Plan 45-year-old female patient with history of LCIS and Pash determined to be at high risk for breast cancer. Examination today reveals no new suspicious findings in either breast. Her most recent mammogram of 08/11/2024 revealed no mammographic evidence of malignancy (BI-RADS 2). Ultrasound of 10/24/2024 also revealed no suspicious findings in either breast (BI-RADS 1). I recommended follow-up examination in 6 months' time, sooner p.r.n.. Coding Level of Care Code Est Pt Level 3 (89485) Complex EM visit Add On G2211 Diagnoses Lobular carcinoma in situ (LCIS) of right breast D05.01
[2024-12-25 10:16] VITALS: BP 119/72; PULSE 76; BMI 32.4
--- OUTSIDE RECORDS SUMMARY | 2024-12-25 10:53 | XMS_ITS | Continuity of Care Document ---
Author Organization [facility] Address [address] [place] [address] Phone Care Team Providers Care Sales And Operations Trainee Name Role Phone Ha Staton Unavailable Unavailable [...] Diagnoses Date Provider Providers Copied on Encounter [facility] MD DRUMMOND, [address] [place] [address] Dr Beckwith 1000[address] 1000[place], [id number], tel:[phone] CVR [place] Encounter for cosmetic surgery 3 Ady Bonner. [address] [address], [place], [place], [id number], [place]. tel:[phone] Referring Provider: Nikia Kearney, [address] [place] [address], [place], [address]. tel:[phone] Katia For Vein Yarsani MD DRUMMOND, [address] [place] [address] Dr Beckwith 1000[address], [place], [id number], [place] tel:[phone] CVR - [place] Encounter for cosmetic surgery 3 Ady Bonner. [address] [address], [place], [place], [id number], [place]. tel:[phone] Referring Provider: Nikia Kearney, [address] [place] [address], [place], [address]. tel:[phone] Office/Outpt E&M Established 15 Mins [facility] MD DRUMMOND, [address] [place] [address] Dr Beckwith 1000[address] 1000, [place], [id number], [place] tel:[phone] CV[place] Venous insufficiency (chronic) (peripheral) 3 Caio OCONNOR FACS RVT SANDIP Jeffers. [address] [address], [place], [address], [place]. tel:[phone] Referring Provider: Nikia Kearney, [address] [place] [address], [address]. 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 [address] [facility], [address], [place], [place], [id number], [place]. tel:[phone] Referring Provider: Nikia Kearney, [address] [place] [address], [place], [address]. tel:[phone] [facility]ia For Vein Yarsani MD DRUMMOND, [address] [place] [address] Dr Beckwith 1000Suite 1000[place], [id number], [place] tel:[phone] CVR - [place] Encntr for f/u exam aft trtmt for cond oth than malig neoplmVenous insufficiency (chronic) (peripheral) 3 Caio OCONNOR FACS T SANDIP Jeffers. [address] [address], [place], [address], [place]. tel:[phone] Referring Provider: Nikia Kearney, [address] [place] [address], [place], [address]. tel:[phone] [facility]ia For Vein Yarsani MD DRUMMOND, [address] [place] [address] Dr Beckwith 1000Suite 1000[place], [id number], [place] tel:[phone] CVR - [place] Venous insufficiency (chronic) (peripheral) 3 Caio OCONNOR FACS T SANDIP Jeffers. [address] [address], [place], [address], [place]. tel:[phone] Referring Provider: Nikia Kearney, [address] [place] [address], [place], [address]. tel:[phone] Katia Espinoza Vein Yarsani MD DRUMMOND, [address] [place] [address] Dr Beckwith 1000[address] 1000[place], [id number], [place] tel:[phone] CVR - [place] Venous insufficiency (chronic) (peripheral) 3 Caio OCONNOR FACS Marilee Jeffers. [address] [facility], [address], [place], [address], [place]. tel:[phone] Referring Provider: Nikia Rojas MD Caio, [address] [place] [address], [address]. tel:[phone] [facility], [address] [place] [address] [address] 1000[place], [id number], [place] tel:[phone] CVR - [place] No Information 3 Caio OCONNOR FACS Marilee Jeffers. [address] [place] [address], Suite [facility], [place], [address], [place]. tel:[phone] Referring Provider: Nikia Kearney, [address] [place] [address], [address]. tel:[phone] Katia Espinoza Vein Yarsani MD DRUMMOND, [address] [place] [address] [address] 1000[place], [id number], [place] tel:[phone] CVR - [facility] Varicose veins of right low extrm w oth complications 3 Caio OCONNOR FACS Marilee Jeffers. [address] [place] [address], [address], [place], [address], [place]. tel:[phone] Referring Provider: Nikia Keareny, [address] [place] [address], [place], [address]. tel:[phone] Katia Espinoza Vein Yarsani MD DRUMMOND, [address] [place] [address] Dr Beckwith 1000[address] 1000[place], [id number], [place] tel:[phone] CVR - [facility] Encntr for f/u exam aft trtmt for cond oth than malig neoplmVenous insufficiency (chronic) (peripheral) 3 Caio OCONNOR FACS T RPNIRAV Jeffers. [address] [place] [address], [place], [address], [place]. tel:[phone] Referring Provider: Nikia Kearney, [address], [address]. tel:[phone] [facility], [address] [place] [address] [facility] 1000[address] 1000[place], [id number], [place] tel:[phone] CVR - [place] Venous insufficiency (chronic) (peripheral) 3 Caio OCONNOR FACS Marilee NIRAV Jeffers. [address] [place] [address], [place], [address], [place]. tel:[phone] Referring Provider: Nikia Kearney, [address] [place] [address], [address]. tel:[phone] [facility], [address] [place] [address] [facility] [address], [place], [id number], [place] tel:[phone] CVR - [place] Venous insufficiency (chronic) (peripheral) 3 Caio OCONNOR FACS Marilee NIRAV Jeffers. [address] [place] [address], [place], [address], [place]. tel:[phone] Referring Provider: Nikia Kearney, [address] [place] [address], [address]. tel:[phone] Family History Family Member Type Diagnosis Age At Onset No Information Payers Payer name Insurance type Covered democrat ID Authoriza tion(s) Self Pay 09 Social [...]
== END 2024-12-25 10:35 | disposition home or self-care (01) ==
LOC: HO.HGS 09:57
PROVIDERS: PCP Internal Medicine; Visit Provider Surgery
DX: D05.01 Lobular carcinoma in situ of right breast (principal)
CPT/HCPCS: 99213

== ENCOUNTER 2024-12-25 09:56 | Outpatient (REF) | payer OTHER, SELFPAY ==
--- OUTSIDE RECORDS SUMMARY | 2024-12-25 12:32 | XMS_ITS | Continuity of Care Document ---
Author Organization [facility] Address [address] [place] [address] Phone Care Team Providers Care Mac Developer Name Role Phone Ha Staton Unavailable Unavailable [...] Diagnoses Date Provider Providers Copied on Encounter [place] [facility] MD DRUMMOND, [address] [place] [address] Dr Beckwith 1000Suite 1000[place], [id number], tel:[phone] CV[place] Encounter for cosmetic surgery 3 Ady Bonner. [address] [address], [place], [place], [id number], [place]. tel:[phone] Referring Provider: Nikia Kearney, [address] [place] [address], [place], [address]. tel:[phone] [facility] MD DRUMMOND, [address] [place] [address] Dr Beckwith 1000[address] 1000, [place], [id number], [place] tel:[phone] [place] Encounter for cosmetic surgery 3 Ady Bonner. [address] [address], [place], [place], [id number], [place]. tel:[phone] Referring Provider: Nikia Kearney, [address] [place] [address], [place], [address]. tel:[phone] Office/Outpt E&M Established 15 Mins [facility] MD DRUMMOND, [address] [place] [address] Dr Beckwith 1000[address] 1000, [place], [id number], [place] tel:[phone] [place] Venous insufficiency (chronic) (peripheral) 3 Caio OCONNOR FACS RVT SANDIP Jeffers. [address] [address], [place], [address], [place]. tel:[phone] Referring Provider: Nikia Kearney, [address] [place] [address], [address]. 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 [address] [facility], [address], [place], [place], [id number], [place]. tel:[phone] Referring Provider: Nikia Kearney, [address] [place] [address], [place], [address]. tel:[phone] [facility] MD DRUMMOND, [address] [place] [address] Dr Beckwith 1000Suite 1000[place], [id number], [place] tel:[phone] CVR - [place] Encntr for f/u exam aft trtmt for cond oth than malig neoplmVenous insufficiency (chronic) (peripheral) 3 Caio OCONNOR FACS T SANDIP Jeffers. [address] [address], [place], [address], [place]. tel:[phone] Referring Provider: Nikia Kearney, [address] [place] [address], [place], [address]. tel:[phone] [facility] MD DRUMMOND, [address] [place] [address] Dr Beckwith 1000Suite 1000[place], [id number], [place] tel:[phone] CV[place] Venous insufficiency (chronic) (peripheral) 3 Caio OCONNOR FACS T SANDIP Jeffers. [address] [address], [place], [address], [place]. tel:[phone] Referring Provider: Nikia Kearney, [address] [place] [address], [place], [address]. tel:[phone] [facility] Espinoza [facility]into MD DRUMMOND, [address] [place] [address] Dr Beckwith 1000Suite 1000[place], [id number], [place] tel:[phone] CVR - [place] Venous insufficiency (chronic) (peripheral) 3 Caio OCONNOR FACS Marilee Jeffers. [address] [facility] [address] [facility], [address], [place], [address], [place]. tel:[phone] Referring Provider: Nikia Rojas MD Caio, [address] [place] [address], [address]. tel:[phone] [facility], [address] [place] [address] [address]Suite 1000O[place], [id number], [place] tel:[phone] CVR - [place] No Information 3 Caio OCONNOR FACS Marilee Jeffers. [address] [place] [address], Suite [facility], [place], [address], [place]. tel:[phone] Referring Provider: Nikia Kearney, [address] [place] [address], [address]. tel:[phone] [facility] Espinoza [facility] Shinto MD DRUMMOND, [address] [place] [address] [address] 1000Suite 1000[place], [id number], [place] tel:[phone] CVR - [facility] Varicose veins of right low extrm w oth complications 3 Caio OCONNOR FACS Marilee Jeffers. [address] [place] [address], [address], [place], [address], [place]. tel:[phone] Referring Provider: Nikia Kearney, [address] [place] [address], [place], [address]. tel:[phone] Katia Espinoza Vein Shinto MD DRUMMOND, [address] [place] [address] Dr Beckwith 1000Suite 1000[place], [id number], [place] tel:[phone] CVR - [facility] Encntr for f/u exam aft trtmt for cond oth than malig neoplmVenous insufficiency (chronic) (peripheral) 3 Caio OCONNOR FACS T RPNIRAV Jeffers. [address] [place] [address], [place], [address], [place]. tel:[phone] Referring Provider: Nikia Kearney, [address], [address]. tel:[phone] [facility], [address] [place] [address] [facility] 1000Suite 1000[place], [id number], [place] tel:[phone] CV[place] - [place] Venous insufficiency (chronic) (peripheral) 3 Caio OCONNOR FACS Marilee NIRAV Jeffers. [address] [place] [address], [place], [address], [place]. tel:[phone] Referring Provider: Nikia Kearney, [address] [place] [address], [address]. tel:[phone] [facility], [address] [place] [address] [facility] 1000[address] 1000, [place], [id number], [place] tel:[phone] CVR - [place] Venous insufficiency (chronic) (peripheral) 3 Caio OCONNOR FACS Marilee NIRAV Jeffers. [address] [place] [address], [place], [address], [place]. tel:[phone] Referring Provider: Nikia Kearney, [address] [place] [address], [address]. tel:[phone] Family History Family Member Type Diagnosis Age [...]
[2024-12-25 17:20] LABS: CT PCR NOT DETECTED (Not Detect.); NG PCR NOT DETECTED (Not Detect.)
== END 2024-12-25 09:57 | disposition home or self-care (01) ==
LOC: HO.LNP 09:56
PROVIDERS: Obstetrics & Gynecology; PCP Internal Medicine; Visit Provider Surgery
DX: Z30.430 Encounter for insertion of intrauterine contraceptive device (principal); Z32.02 Encounter for pregnancy test, result negative; Z86.000 Personal history of in-situ neoplasm of breast
CPT/HCPCS: 58300; 81025; 87491; 87591; J7300

== ENCOUNTER 2024-12-25 10:42 | Outpatient (AMB) | payer OTHER, SELFPAY ==
--- NOTE | 2024-12-25 11:03 | MHC.OFFVIS ---
Vital Signs 12/25/24 11:04 Height 5 ft 6 in Weight 201 lb BMI 32.4 Intake Visit Reasons: Paragard insertion Outside Sales Executive Required: No Information Interpreted: non-clinical & clinical Lawn Service Supervisor: Lawn Service Supervisor Present (Leah Tony GABI) Accompanied by: Self / Same As Patient Allergies duloxetine [From CYMBALTA] Allergy (Intermediate, Verified 12/25/24 11:05) TONGUE SORES Influenza Virus Vaccines [INFLUENZA VIRUS VACCINES] Allergy (Intermediate, Verified 12/25/24 11:05) ARM SWELLING Sulfa (Sulfonamide Antibiotics) Adverse Reaction (Unknown, Verified 12/25/24 11:05) shaky feeling bactrim Allergy (Mild, Uncoded 12/25/24 11:05) Palpitations Is last menstrual period known: Yes HPI Comments Details: Presenting for ParaGard IUD insertion [facility] Medical History History of Mohs micrographic surgery for skin cancer Hx of malignant neoplasm of skin Dense breast tissue on mammogram Family history of breast cancer in mother History of lobular carcinoma in situ (LCIS) of breast Hair loss Peripheral venous insufficiency Plantar fasciitis 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 Lobular carcinoma in situ (LCIS) of right breast IBS (irritable bowel syndrome) Anxiety Surgical History H/O abdominoplasty (02/11/21) History of bilateral breast reduction surgery (07/21/20) History of dilatation and curettage (1999) History of tonsillectomy History of section Family History Mother History of breast cancer Mental health disorder Maternal Grandfather History of skin cancer Unknown History of breast cancer, Onset Age: 35 Paternal Grandmother Diabetes Social History Household Members: Spouse and Children Housing: House Alcohol intake: never Patient Tobacco Use Status: Former Tobacco user Years Smoked: 10 yrs e-Cigarette/Vaping Use: Never Used Second Hand Smoke Exposure: No service: No Current occupational status: employed 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 occupational exposures/hazards: No Sexual orientation: Straight/Heterosexual Gender identity: Female Cognitive needs: No Hearing needs: No Vision needs: Yes Female Reproductive History Menstrual Age of Menarche: 11 Review of Systems Const All systems reviewed & are unremarkable except as noted in HPI and below Reports as per HPI and Reports no additional complaints GI Reports no additional complaints Reports no additional complaints Physical Exam Vital Signs: BMI result Body Mass Index 32.4 Office Procedures IUD Insert/Removal Details Details: The patient is presenting for Paraguard IUD insertion. Her last menstrual period was within the last 5 days, Urine test was done in the office and was negative; All the contraindications were excluded. The following possible complications were discussed with the patient: Intrauterine , Ectopic , Sepsis, Pelvic Infection, Irregular Bleeding, Perforation, Expulsion. The possible adverse effects were discussed with the patient including but not limited to: increased uterine bleeding, dysmenorrhea , others Alternative options were discussed with the patient including but not limited: control pills, patch, NuvaRing, Depo-medroxyprogesterone acetate, Nexplanon, copper IUD, sterilization, vasectomy, others The procedure was explained in detail to patient , at the end patient signed the informed consent obtained. Urine test was done in the office and was negative A no touch technique was used throughout the procedure. A speculum was placed into vagina and cervix was cleaned with betadine). A tenaculum was placed. A plastic sound was advanced through the external and internal os until it reached the fundus of the uterus, the depth was 7 cm. The sound was then withdrawn. The ParaGard IUD was loaded in a sterile manner and advanced into position. The string was visualized and cut to 3 cm. Tenaculum site hemostatic. All instruments removed from vagina. Patient tolerated the procedure well. NO complications were noted. Patient was instructed to call for fever over 100.4, significant pain unrelieved by Motrin, IUD expulsion, heavy bleeding, or abnormal discharge. In addition, the following clinical considerations were discussed with the patient to call for removal: Unexplained fever , or suspected , Pelvic pain or pain during sex ,HIV positive seroconversion in herself or her partner , Possible exposure to sexually transmitted infections Unusual vaginal discharge or genital sores , severe vaginal bleeding or bleeding that lasts a long time, or if she misses a menstrual period, Inability to feel IUD s threads Counseled the patient that the IUD does not protect against STI's, recommended use of condoms for the first 7 days post insertion and explained to the patient that condoms are recommended for patients at risk for sexually transmitted infections. Follow up appointment made for 6 weeks following insertion. This note was generated with a voice recognition program. Some errors may have been overlooked during the review of this note. Sometimes these errors may affect the content or meaning of a given sentence. 85322-IYE Insertion Procedure code (CPT) selection complete Office Meds ParaGard T 380A 380 square mm intrauterine device Performing Provider: Navarro Welsh MD Performing Location: [facility] Documented (not given) by: Navarro Welsh MD on 12/25/24 11:22 Dose Route Admin Location Dispensed Lot Number Expiration Date NDC Agronomy Supervisor 1 device intrauterine ea Results AMB Test Urine AMB Test Urine Negative Last Edit by Leah Tony CMA on 12/25/24 11:12 Assessment & Plan Assessment & Plan (1) Encounter for insertion of ParaGard IUD: Code(s): Z30.430 - Encounter for insertion of intrauterine contraceptive device Category: Medical Plan: UPT done in the office was negative. GC/CT done was negative. ParaGard IUD insertion done, see procedure note Orders: Orders AMB HCG Urine Test Today Z32.02 - Encounter for test, result negative AMB IUD Insertion/Removal - Practice Supplied Today Z30.430 - Encounter for insertion of intrauterine contraceptive device Medications: New ParaGard T 380A (copper) 1 device intrauterine ONCE 1 ea 0RF IUD insertion NS Z30.430 - Encounter for insertion of intrauterine contraceptive device Coding Level of Care Code Procedure Only Diagnoses Encounter for insertion of ParaGard IUD Z30.430 CPT Codes Details - CPT: 94463-QRJ Insertion ([id number])
[2024-12-25 11:04] VITALS: BMI 32.4
--- OUTSIDE RECORDS SUMMARY | 2024-12-25 11:48 | XMS_ITS | Continuity of Care Document ---
Author Organization [facility] Address [address] [place] [address] Phone Care Team Providers Care Back Facer Name Role Phone Ha Staton Unavailable Unavailable [...] Diagnoses Date Provider Providers Copied on Encounter [facility] [facility] MD DRUMMOND, [address] [place] [address] Dr Beckwith [address] 1000[place], [id number], tel:[phone] [place]R [place] Encounter for cosmetic surgery 3 Ady Bonner. [address] [address], [place], [place], [id number], [place]. tel:[phone] Referring Provider: Nikia Kearney, [address] [place] [address], [place], [address]. tel:[phone] [facility] MD DRUMMOND, [address] [place] [address] Dr Beckwith [address], [place], [id number], [place] tel:[phone] [place] Encounter for cosmetic surgery 3 Ady Bonner. [address] [address], [place], [place], [id number], [place]. tel:[phone] Referring Provider: Nikia Kearney, [address] [place] [address], [place], [address]. tel:[phone] Office/Outpt E&M Established 15 Mins [facility] MD DRUMMOND, [address] [place] [address] Dr Beckwith [address], [place], [id number], [place] tel:[phone] [place] Venous insufficiency (chronic) (peripheral) 3 Caio OCONNOR FACS RVT SANDIP Jeffers. [address] [address], [place], [address], [place]. tel:[phone] Referring Provider: Nikia Kearney, [address] [place] [address], [address]. 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 [address] [facility], [address], [place], [place], [id number], [place]. tel:[phone] Referring Provider: Nikia Kearney, [address] [place] [address], [place], [address]. tel:[phone] [facility] MD DRUMMOND, [address] [place] [address] Dr Beckwith 1000Suite 1000[place], [id number], [place] tel:[phone] [place] Encntr for f/u exam aft trtmt for cond oth than malig neoplmVenous insufficiency (chronic) (peripheral) 3 Caio OCONNOR FACS T SANDIP Jeffers. [address] [address], [place], [address], [place]. tel:[phone] Referring Provider: Nikia Kearney, [address] [place] [address], [place], [address]. tel:[phone] [facility] MD DRUMMOND, [address] [place] [address] Dr Beckwith 1000Suite 1000[place], [id number], [place] tel:[phone] [place] Venous insufficiency (chronic) (peripheral) 3 Caio OCONNOR FACS T SANDIP Jeffers. [address] [address], [place], [address], [place]. tel:[phone] Referring Provider: Nikia Kearney, [address] [place] [address], [place], [address]. tel:[phone] [facility] MD DRUMMOND, [address] [place] [address] Dr Beckwith 1000Suite 1000[place], [id number], [place] tel:[phone] [place] Venous insufficiency (chronic) (peripheral) 3 Caio OCONNOR FACS Marilee Jeffers. [address] [facility], [address], [place], [address], [place]. tel:[phone] Referring Provider: Nikia Rojas MD Caio, [address] [place] [address], [address]. tel:[phone] [facility], [address] [place] [address] [address] 1000O[place], [id number], [place] tel:[phone] [place] No Information 3 Caio OCONNOR FACS Marilee Jeffers. [address] [place] [address], Suite [facility], [place], [address], [place]. tel:[phone] Referring Provider: Nikia Kearney, [address] [place] [address], [address]. tel:[phone] [facility] Espinoza [facility] Jew MD DRUMMOND, [address] [place] [address] [address] 1000[place], [id number], [place] tel:[phone] CVR - [facility] Varicose veins of right low extrm w oth complications 3 Caio OCONNOR FACS Marilee Jeffers. [address] [place] [address], [address], [place], [address], [place]. tel:[phone] Referring Provider: Nikia Kearney, [address] [place] [address], [place], [address]. tel:[phone] Katia Espinoza Vein Jew MD DRUMMOND, [address] [place] [address] Dr Beckwith 1000Suite 1000[place], [id number], [place] tel:[phone] CVR - [facility] Encntr for f/u exam aft trtmt for cond oth than malig neoplmVenous insufficiency (chronic) (peripheral) 3 Caio OCONNOR FACS T RPNIRAV Jeffers. [address] [place] [address], [place], [address], [place]. tel:[phone] Referring Provider: Nikia Kearney, [address], [address]. tel:[phone] [facility], [address] [place] [address] [facility] 1000Suite 1000[place], [id number], [place] tel:[phone] [place] Venous insufficiency (chronic) (peripheral) 3 Caio OCONNOR FACS Marilee NIRAV Jeffers. [address] [place] [address], [place], [address], [place]. tel:[phone] Referring Provider: Nikia Kearney, [address] [place] [address], [address]. tel:[phone] [facility], [address] [place] [address] [facility] 1000[address] 1000, [place], [id number], [place] tel:[phone] [place] Venous insufficiency (chronic) (peripheral) 3 Caio OCONNOR FACS Marilee NIRAV Jeffers. [address] [place] [address], [place], [address], [place]. tel:[phone] Referring Provider: Nikia Kearney, [address] [place] [address], [address]. tel:[phone] Family History Family Member Type Diagnosis Age [...]
== END 2024-12-25 11:46 | disposition home or self-care (01) ==
LOC: HO.HWS 10:42
PROVIDERS: PCP Internal Medicine; Visit Provider Obstetrics & Gynecology
DX: Z30.430 Encounter for insertion of intrauterine contraceptive device (principal); Z32.02 Encounter for pregnancy test, result negative
CPT/HCPCS: 58300

== ENCOUNTER 2025-01-01 16:22 | Outpatient (REF) | payer OTHER, SELFPAY ==
--- NOTE | ~2025-01-01 | US_ITS ---
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 TECHNIQUE: Transabdominal and endovaginal real-time 2D arreola-scale ultrasound was performed. FINDINGS: Uterus: The uterus is normal in size, measuring 9.0 x 4.9 x 6.4 cm. Myometrium has a normal echotexture. Again seen is a fundal fibroid measuring 2.3 x 1.6 x 1.8 cm (previously 3.1 x 3.0 x 2.3 cm), and a right-sided fibroid measuring 1.6 x 1.1 x 1.2 cm (previously 1.9 x 1.8 x 2.1 cm). Endometrium: The endometrial stripe measures 7 mm in thickness. There is an IUD which is low-lying in the lower uterine segment. Right ovary: The right ovary measures 2.9 x 2.4 x 1.9 cm. There is a 1.8 x 1.7 x 1.8 cm septated cyst demonstrating a tiny mural nodule. Left ovary: The left ovary is not identified. Pelvic fluid: none. US/US pelvic and transvaginal IMPRESSION: 1. Fibroid uterus as described. 2. Low-lying IUD in the lower uterine segment. 3. 1.8 cm complex right ovarian cyst demonstrating a septation and tiny mural nodule. Follow-up is recommended in 6 weeks, at a different time in the patient's menstrual cycle, to document resolution. Electronically signed by: Chico Cheng MD 01/02/2025 07:17 AM EDT
== END 2025-01-01 16:23 | disposition home or self-care (01) ==
LOC: HO.US 16:22
PROVIDERS: PCP Internal Medicine; Visit Provider Advanced Practice Midwife
DX: D21.9 Benign neoplasm of connective and other soft tissue, unspecified (principal)
CPT/HCPCS: 76830; 76856

== ENCOUNTER → 2025-01-01 16:25 | Outpatient (BNV) | payer OTHER, SELFPAY | PROVIDERS: PCP Internal Medicine; Visit Provider Radiology Diagnostic Radiology | DX: D25.9 Leiomyoma of uterus, unspecified (principal); N83.291 Other ovarian cyst, right side | CPT/HCPCS: 76830; 76856 ==

== ENCOUNTER 2025-01-08 09:20 | Outpatient (REF) | payer OTHER, SELFPAY ==
[2025-01-08 12:14] LABS: Lactate Dehydrogenase 152 U/L (122-220)
[2025-01-08 12:28] LABS: Carcinoembryonic Antigen < 1.73 ng/mL
[2025-01-09 09:02] LABS: CA-125 12 U/mL (<35); Carbohydrate Antigen 19-9 14 U/mL (<34)
[2025-01-09 10:14] LABS: Alpha Fetoprotein 10.6 ng/mL
[2025-01-15 19:12] LABS: Inhibin B 67 pg/mL
== END 2025-01-08 09:21 | disposition home or self-care (01) ==
LOC: HO.LAB 09:20
PROVIDERS: PCP Internal Medicine; Visit Provider Obstetrics & Gynecology
DX: T83.32XA Displacement of intrauterine contraceptive device, initial encounter (principal); N93.9 Abnormal uterine and vaginal bleeding, unspecified; N83.299 Other ovarian cyst, unspecified side; D25.9 Leiomyoma of uterus, unspecified
CPT/HCPCS: 36415; 58300; 58301; 81025; 82105; 82378; 83520; 83615; 86301; 86304; J7300

== ENCOUNTER 2025-01-08 09:20 | Outpatient (AMB) | payer OTHER, SELFPAY ==
[2025-01-08 09:24] VITALS: BMI 32.4
--- NOTE | 2025-01-08 09:24 | MHC.OFFVIS ---
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 Information Interpreted: non-clinical & clinical University Manager: University Manager Present (Leah Tony BRODERICKTino) Accompanied by: Self / Same As Patient Allergies duloxetine [From CYMBALTA] Allergy (Intermediate, Verified 01/08/25 09:25) TONGUE SORES Influenza Virus Vaccines [INFLUENZA VIRUS VACCINES] Allergy (Intermediate, Verified 01/08/25 09:25) ARM SWELLING Sulfa (Sulfonamide Antibiotics) Adverse Reaction (Unknown, Verified 01/08/25 09:25) shaky feeling bactrim Allergy (Mild, Uncoded 01/08/25 09:25) Palpitations HPI Comments Details: Presenting complaining of daily vaginal bleeding over the last few weeks. Pelvic ultrasound done in 01/02/2025 showed the following: Uterus: The uterus is normal in size, measuring 9.0 x 4.9 x 6.4 cm. Myometrium has a normal echotexture. Again seen is a fundal fibroid measuring 2.3 x 1.6 x 1.8 cm (previously 3.1 x 3.0 x 2.3 cm), and a right-sided fibroid measuring 1.6 x 1.1 x 1.2 cm (previously 1.9 x 1.8 x 2.1 cm). Endometrium: The endometrial stripe measures 7 mm in thickness. There is an IUD which is low-lying in the lower uterine segment. Right ovary: The right ovary measures 2.9 x 2.4 x 1.9 cm. There is a 1.8 x 1.7 x 1.8 cm septated cyst demonstrating a tiny mural nodule. Left ovary: The left ovary is not identified. Pelvic fluid: none. 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 Lobular carcinoma in situ (LCIS) of right breast IBS (irritable bowel syndrome) Anxiety Surgical History H/O abdominoplasty (02/11/21) History of bilateral breast reduction surgery (07/21/20) History of dilatation and curettage (1999) History of tonsillectomy History of section Family History Mother History of breast cancer Mental health disorder Maternal Grandfather History of skin cancer Unknown History of breast cancer, Onset Age: 35 Paternal Grandmother Diabetes Social History Household Members: Spouse and Children Housing: House Alcohol intake: never Patient Tobacco Use Status: Former Tobacco user Years Smoked: 10 yrs e-Cigarette/Vaping Use: Never Used Second Hand Smoke Exposure: No service: No Current occupational status: employed 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 occupational exposures/hazards: No Sexual orientation: Straight/Heterosexual Gender identity: Female Cognitive needs: No Hearing needs: No Vision needs: Yes Female Reproductive History Menstrual Age of Menarche: 11 Review of Systems Const All systems reviewed & are unremarkable except as noted in HPI and below Physical Exam Vital Signs: BMI result Body Mass Index 32.4 General: Yes no CVA tenderness External Female Exam: normal external appearance, normal appearance of the urethra and other (IUD string in place) Speculum Exam - Vagina: normal appearance of the vagina, normal palpation, no lesions and no masses Speculum Exam - Cervix: normal appearance of the cervix, normal palpation, no lesions, no masses and nontender Bimanual exam- vagina & uterus: normal bimanual exam, normal palpation, uterine size normal, normal palpation, uterine shape normal, No Cervical tenderness present and non-tender Bimanual Exam- Adnexa, other: normal adnexae Back/Spine/Pelvis Back: no CVA tenderness Office Procedures IUD Insert/Removal Details Details: After ParaGard IUD removal, ParaGard IUD insertion Urine test was done in the office and was negative; All the contraindications were excluded. The following possible complications were discussed with the patient: Intrauterine , Ectopic , Sepsis, Pelvic Infection, Irregular Bleeding, Perforation, Expulsion. The possible adverse effects were discussed with the patient including but not limited to: increased uterine bleeding, dysmenorrhea , others Alternative options were discussed with the patient including but not limited: control pills, patch, NuvaRing, Depo-medroxyprogesterone acetate, Nexplanon, copper IUD, sterilization, vasectomy, others The procedure was explained in detail to patient , at the end patient signed the informed consent obtained. Urine test was done in the office and was negative A no touch technique was used throughout the procedure. A speculum was placed into vagina and cervix was cleaned with betadine). A tenaculum was placed. A plastic sound was advanced through the external and internal os until it reached the fundus of the uterus, the depth was 7 cm. The sound was then withdrawn. The ParaGard IUD was loaded in a sterile manner and advanced into position. The string was visualized and cut to 3 cm. Tenaculum site hemostatic. All instruments removed from vagina. Patient tolerated the procedure well. NO complications were noted. Patient was instructed to call for fever over 100.4, significant pain unrelieved by Motrin, IUD expulsion, heavy bleeding, or abnormal discharge. In addition, the following clinical considerations were discussed with the patient to call for removal: Unexplained fever , or suspected , Pelvic pain or pain during sex ,HIV positive seroconversion in herself or her partner , Possible exposure to sexually transmitted infections Unusual vaginal discharge or genital sores , severe vaginal bleeding or bleeding that lasts a long time, or if she misses a menstrual period, Inability to feel IUD s threads Counseled the patient that the IUD does not protect against STI's, recommended use of condoms for the first 7 days post insertion and explained to the patient that condoms are recommended for patients at risk for sexually transmitted infections. Follow up appointment made for 6 weeks following insertion. This note was generated with a voice recognition program. Some errors may have been overlooked during the review of this note. Sometimes these errors may affect the content or meaning of a given sentence. 93569-JEM Insertion Procedure code (CPT) selection complete IUD Insert/Removal Details Details: Counseling/Consent: After discussing with the patient the risks of the procedure including bleeding, infection, scar tissue formation, , possible injury to blood vessels or nerves, chronic arm pain, blood transfusion, and irregular unpredictable bleeding Alternative options were discussed with the patient including but not limited: Do nothing. The patient signed the consent and agreed with the plan; all questions answered. Urine test was done in the office and was negative Preop dx: Malpositioned IUD for removal Op: ParaGard IUD removal Post op dx: same EBL= 10 cc Procedure: The patient was put in the dorsal lithotomy position a speculum was inserted in the vagina the IUD thread identified. Using a Pauline clamp the thread was grasped and the IUD pulled out with no complications. The patient tolerated the procedure well and was advised to use a different method for contraception. Discharge instructions: Instructions were given to the pt to call if temp>100.4, abdominal pain heavy vaginal bleeding, n/v occur. The patient verbalized understanding and all questions answered. This note was generated with a voice recognition program. Some errors may have been overlooked during the review of this note. Sometimes these errors may affect the content or meaning of a given sentence. 11139-XEO Removal Procedure code (CPT) selection complete Office Meds ParaGard T 380A 380 square mm intrauterine device Performing Provider: Navarro Welsh MD [place] [facility] [place] Documented (not given) by: Navarro Welsh MD on 01/08/25 10:31 Dose Route Admin Location Dispensed Lot Number Expiration Date [facility] [employer] Dean 1 device intrauterine ea Results AMB Test Urine AMB Test Urine Negative Last Edit by Leah Tony CMA on 01/08/25 10:04 Assessment & Plan Assessment & Plan (1) Abnormal uterine bleeding (AUB): Comment: History of LCIS elevated breast cancer risk= 56% Myoma Code(s): N93.9 - Abnormal uterine and vaginal bleeding, unspecified Category: Medical Plan: Discussed with the patient the malpositioned of the IUD and options of treatment recommended either ParaGard IUD removal and replacement, if AUB persist will consider endometrial ablation with laparoscopic sterilization versus hysterectomy (2) Malpositioned IUD: Code(s): T83.32XA - Displacement of intrauterine contraceptive device, initial encounter Category: Medical Plan: Discussed with the patient the results of the ultrasound showing malpositioned IUD, recommended IUD removal, the patient is interested in ParaGard IUD reinsertion for control. ParaGard IUD removal and insertion done, see procedure (3) Complex ovarian cyst: Code(s): N83.299 - Other ovarian cyst, unspecified side Category: Medical Plan: Discussed with the patient the complex ovarian cyst by ultrasound. Discussed with the patient the Ultrasound findings, the main limitation of transvaginal ultrasonography alone as a diagnostic tool to distinguish benign from malignant masses relates to its lack of specificity and low positive predictive value for cancer. The differential diagnosis discussed with the patient includes the following but not limited to: benign and malignant gynecological and non-gynecological causes. Will order ovarian cancer tumor markers including CA 125, CEA, CA 19-9, LDH, inhibin B, alpha-fetoprotein Discussed with the patient options of treatment including laparoscopy ovarian cystectomy/oophorectomy vs. expectant management with repeat US in repeating pelvic US in 6 weeks from previous US. If the ovarian complex cyst is persistent larger and / or more complex looking, will refer to gynecologic Oncology. All pros, cons, risks and benefits of each approach were discussed with the patient including but not limited to a delay in the diagnosis and treatment of ovarian cancer affecting the prognosis; The patient decided to go ahead with expectant management. Instructions given the patient to schedule a 6 week follow-up ultrasound appointment. All questions were answered & the patient verbalized understanding and agreed with the plan. (4) Uterine myoma: Code(s): D25.9 - Leiomyoma of uterus, unspecified Category: Medical Plan: Discussed with the patient the findings on pelvic ultrasound & the risk of myosarcoma; in addition reviewed with the patient that malignancy and pre malignancy cannot be ruled out without hysterectomy for pathological evaluation ; furthermore, explained to the patient the limitation of pelvic ultrasound and endometrial biopsy in the setting. Discussed with the patient the typical symptoms that are caused by myomas including but not limited to pelvic pain, pressure symptoms, abnormal uterine bleeding. In addition discussed with the patient options of treatment for myomas including: Serial ultrasounds periodically to follow-up on the size of the myoma while targeting the treatment against fibroids related symptoms ( control pills, Mirena IUD, progesterone treatment, GnRH agonist/antagonist, uterine artery embolization or endometrial ablation) versus surgical treatment including hysterectomy and or myomectomy. All pros and cons, risks and benefits of all options were discussed with the patient. The patient understands that delay in surgical treatment in case of myosarcoma can affect her prognosis, after further discussion, the patient decided with expectant management after ParaGard IUD removal and reinsertion and if AUB persists proceed with endometrial ablation/sterilization versus hysterectomy Orders: Orders AMB HCG Urine Test Today Z32.02 - Encounter for test, result negative CA-125 Today N83.299 - Other ovarian cyst, unspecified side Carcinoembryonic Antigen Today N83.299 - Other ovarian cyst, unspecified side Lactate Dehydrogenase Today N83.299 - Other ovarian cyst, unspecified side Carbohydrate Antigen 19-9 Today N83.299 - Other ovarian cyst, unspecified side US pelvic and transvaginal 3 Months N83.299 - Other ovarian cyst, unspecified side Alpha Fetoprotein Today N83.299 - Other ovarian cyst, unspecified side Inhibin B Today N83.299 - Other ovarian cyst, unspecified side AMB IUD Insertion/Removal - Practice Supplied Today Z30.430 - Encounter for insertion of intrauterine contraceptive device Medications: New ParaGard T 380A (copper) 1 device intrauterine ONCE 1 ea 0RF IUD insertion NS Z30.430 - Encounter for insertion of intrauterine contraceptive device Coding Level of Care Code Est Pt Level 3 (72307) Procedure Only Diagnoses Abnormal uterine bleeding (AUB) N93.9 Malpositioned IUD T83.32XA Complex ovarian cyst N83.299 Uterine myoma D25.9 CPT Codes Details - CPT: 94284-AJR Insertion ([id number]) Details - CPT: 32881-GEC Removal ([id number])
--- OUTSIDE RECORDS SUMMARY | 2025-01-08 09:44 | XMS_ITS | Continuity of Care Document ---
Author Organization [facility] Address [address] [place] [address] Phone Care Team Providers Care Assembler Lay Ups Name Role Phone Ha Staton Unavailable Unavailable [...] Diagnoses Date Provider Providers Copied on Encounter [facility] MD DRUMMOND, [address] [place] [address] Dr Beckwith [address], [id number], tel:[phone] [facility] [place] Encounter for cosmetic surgery 3 Ady Bonner. [address] [address], [place], [place], [id number], [place]. tel:[phone] Referring Provider: Nikia Kearney, [address] [place] [address], [place], [address]. tel:[phone] [facility] MD DRUMMOND, [address] [place] [address] Dr Beckwith [address], [place], [id number], [place] tel:[phone] [facility] [place] Encounter for cosmetic surgery 3 Ady Bonner. [address] [address], [place], [place], [id number], [place]. tel:[phone] Referring Provider: Nikia Kearney, [address] [place] [address], [place], [address]. tel:[phone] Office/Outpt E&M Established 15 Mins [facility], [address] [place] [address] Dr Beckwith [address], [place], [id number], [place] tel:[phone] [facility] [place] Venous insufficiency (chronic) (peripheral) 3 Caio OCONNOR FACS RVT SANDIP Jeffers. [address] [address], [place], [address], [place]. tel:[phone] Referring Provider: Nikia Kearney, [address] [place] [address], [address]. 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 [address] [facility], [address], [place], [place], [id number], [place]. tel:[phone] Referring Provider: Nikia Kearney, [address] [place] [address], [place], [address]. tel:[phone] [facility] MD DRUMMOND, [address] [place] [address] Dr Beckwith [address], [id number], [place] tel:[phone] [facility] [place] Encntr for f/u exam aft trtmt for cond oth than malig neoplmVenous insufficiency (chronic) (peripheral) 3 Caio OCONNOR FACS T SANDIP Jeffers. [address] [address], [place], [address], [place]. tel:[phone] Referring Provider: Nikia Kearney, [address] [place] [address], [place], [address]. tel:[phone] [facility] MD DRUMMOND, [address] [place] [address] Dr Beckwith [address], [id number], [place] tel:[phone] [facility] [place] Venous insufficiency (chronic) (peripheral) 3 Caio OCONNOR FACS T SANDIP Jeffers. [address] [address], [place], [address], [place]. tel:[phone] Referring Provider: Nikia Kearney, [address] [place] [address], [place], [address]. tel:[phone] Katia Espinoza [facility] MD DRUMMOND, [address] [place] [address] Dr Beckwith [address], [id number], [place] tel:[phone] [facility] [place] Venous insufficiency (chronic) (peripheral) 3 Caio OCONNOR FACS Marilee Jeffers. [address] [facility], [address], [place], [address], [place]. tel:[phone] Referring Provider: Nikia Rojas MD Caio, [address] [place] [address], [address]. tel:[phone] [facility], [address] [place] [address] [address], [id number], [place] tel:[phone] [facility] [place] No Information 3 Caio OCONNOR FACS Marilee Jeffers. [address] [place] [address], Suite [facility], [place], [address], [place]. tel:[phone] Referring Provider: Nikia Kearney, [address] [place] [address], [address]. tel:[phone] Katia Espinoza [facility] MD DRUMMOND, [address] [place] [address] [address], [id number], [place] tel:[phone] CVR - [facility] Varicose veins of right low extrm w oth complications 3 Caio OCONNOR FACS Marilee Jeffers. [address] [place] [address], [address], [place], [address], [place]. tel:[phone] Referring Provider: Nikia Kearney, [address] [place] [address], [place], [address]. tel:[phone] Katia Espinoza Vein [facility] MD DRUMMOND, [address] [place] [address] Dr Beckwith [address], [id number], [place] tel:[phone] CVR - [facility] Encntr for f/u exam aft trtmt for cond oth than malig neoplmVenous insufficiency (chronic) (peripheral) 3 Caio OCONNOR FACS T RPNIRAV Jeffers. [address] [place] [address], [place], [address], [place]. tel:[phone] Referring Provider: Nikia Kearney, [address], [address]. tel:[phone] [facility], [address] [place] [address] [facility] [address], [id number], [place] tel:[phone] [facility] [place] Venous insufficiency (chronic) (peripheral) 3 Caio OCONNOR FACS Marilee NIRAV Jeffers. [address] [place] [address], [place], [address], [place]. tel:[phone] Referring Provider: Nikia Kearney, [address] [place] [address], [address]. tel:[phone] [facility], [address] [place] [address] [facility] [address], [place], [id number], [place] tel:[phone] [facility] [place] Venous insufficiency (chronic) (peripheral) 3 Caio OCONNOR FACS Marilee NIRAV Jeffers. [address] [place] [address], [place], [address], [place]. tel:[phone] Referring Provider: Nikia Kearney, [address] [place] [address], [address]. tel:[phone] Family History Family Member Type Diagnosis Age [...]
== END 2025-01-08 10:41 | disposition home or self-care (01) ==
LOC: HO.HWS 09:20
PROVIDERS: PCP Internal Medicine; Visit Provider Obstetrics & Gynecology
DX: N93.9 Abnormal uterine and vaginal bleeding, unspecified (principal); T83.32XA Displacement of intrauterine contraceptive device, initial encounter; N83.299 Other ovarian cyst, unspecified side; D25.9 Leiomyoma of uterus, unspecified; Z30.433 Encounter for removal and reinsertion of intrauterine contraceptive device; Z32.02 Encounter for pregnancy test, result negative
CPT/HCPCS: 58300; 58301; 99213

== ENCOUNTER 2025-01-09 10:54 | Outpatient (AMB) | payer OTHER, SELFPAY ==
--- NOTE | 2025-01-09 10:55 | MHC.OFFVIS ---
Intake Visit Reasons: Labs results Allergies duloxetine [From CYMBALTA] Allergy (Intermediate, Verified 01/08/25 09:25) TONGUE SORES Influenza Virus Vaccines [INFLUENZA VIRUS VACCINES] Allergy (Intermediate, Verified 01/08/25 09:25) ARM SWELLING Sulfa (Sulfonamide Antibiotics) Adverse Reaction (Unknown, Verified 01/08/25 09:25) shaky feeling bactrim Allergy (Mild, Uncoded 01/08/25 09:25) Palpitations HPI Comments Details: The patient is scheduled tele health visit for follow-up. ParaGard IUD insertion removed and replaced yesterday better, vaginal bleeding slowed down 01/01/2025 Pelvic Ultrasound showed the right complex 1.8 cm ovarian cyst with septation and mural nodules Lifetime breast cancer risk elevated at 56% CEA, CA 19-9, CA 125 within normal Inhibin B pending Office EMB pathology in 10/07 showed the following: Benign proliferative endometrium with ectatic vessels and focal breakdown; no atypia or carcinoma 02/03 co testing negative 08/05 mammogram BI-RADS 2 [facility] Medical History History of Mohs micrographic surgery for skin cancer Hx of malignant neoplasm of skin Dense breast tissue on mammogram Family history of breast cancer in mother History of lobular carcinoma in situ (LCIS) of breast Hair loss Peripheral venous insufficiency Plantar fasciitis 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 Lobular carcinoma in situ (LCIS) of right breast IBS (irritable bowel syndrome) Anxiety Surgical History H/O abdominoplasty (02/11/21) History of bilateral breast reduction surgery (07/21/20) History of dilatation and curettage (1999) History of tonsillectomy History of section Family History Mother History of breast cancer Mental health disorder Maternal Grandfather History of skin cancer Unknown History of breast cancer, Onset Age: 35 Paternal Grandmother Diabetes Social History Household Members: Spouse and Children Housing: House Alcohol intake: never Patient Tobacco Use Status: Former Tobacco user Years Smoked: 10 yrs e-Cigarette/Vaping Use: Never Used Second Hand Smoke Exposure: No service: No Current occupational status: employed 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 occupational exposures/hazards: No Sexual orientation: Straight/Heterosexual Gender identity: Female Cognitive needs: No Hearing needs: No Vision needs: Yes Female Reproductive History Menstrual Age of Menarche: 11 Review of Systems Const All systems reviewed & are unremarkable except as noted in HPI and below Reports as per HPI and Reports no additional complaints GI Reports no additional complaints Reports no additional complaints Telehealth Telehealth Telehealth Platform: Telephone Location of provider rendering services: practice address Location of patient: address on file Patient Identification confirmed using: Name, : Yes Telehealth method: video Patient verbally consented to treatment: Yes Patient verbally consented to billing insurance company: Yes Patient informed of any privacy concerns related to visit: Yes Minutes spent on Phone/Video with Pt.: 4 Assessment & Plan Assessment & Plan (1) Complex ovarian cyst: Code(s): N83.299 - Other ovarian cyst, unspecified side Category: Medical Plan: Discussed with the patient the results of elevated alpha-fetoprotein , specificity, specificity, false-positive false-negative rate discussed with the patient. Will order CT scan of abdomen pelvis with IV and oral contrast and refer the patient to Gyne Onc for further management. Appointment scheduled with Dr. Fine at [facility] esthetician/skin therapist Oncology on 01/15/2025 at 09:00, the patient is aware All questions answered, the patient verbalized understanding. Instructed the patient to call our office back in case a referral appointment is not scheduled, missed or canceled so that we will assist on rescheduling another appointment, the patient verbalized understanding agreed with the plan. I spent a total of 20 minutes reviewing the chart, talking to the patient via video and documenting in the medical record. Orders: Orders Bacterial Vaginosis Panel Today N83.299 - Other ovarian cyst, unspecified side Creatinine Today N83.299 - Other ovarian cyst, unspecified side CT abdomen pelvis w IV con Today N83.299 - Other ovarian cyst, unspecified side Referrals Gynecologic Oncology Referral N83.299 - Other ovarian cyst, unspecified side Coding Level of Care Code Tele Est Pt Level 3 (70643) Diagnoses Complex ovarian cyst N83.299
--- OUTSIDE RECORDS SUMMARY | 2025-01-09 11:45 | XMS_ITS | Continuity of Care Document ---
Author Organization [facility] or[facility] Address [address] [facility] [address] [place] [address] Phone Care Team Providers Care Visual C Developer Name Role Phone Ha Staton Unavailable [...] Diagnoses Date Provider Providers Copied on Encounter [place] [facility] MD DRUMMOND, [address] [place] [address] Dr Beckwith [address], [id number], tel:[phone] [place] Encounter for cosmetic surgery 3 Ady Bonner. [address] [address], [place], [place], [id number], [place]. tel:[phone] Referring Provider: Nikia Kearney, [address] [place] [address], [place], [address]. tel:[phone] [facility] MD DRUMMOND, [address] [place] [address] Dr Beckwith [address], [place], [id number], [place] tel:[phone] [place] Encounter for cosmetic surgery 3 Ady Bonner. [address] [address], [place], [place], [id number], [place]. tel:[phone] Referring Provider: Nikia Kearney, [address] [place] [address], [place], [address]. tel:[phone] Office/Outpt E&M Established 15 Mins [facility] DR[place]D, [address] [place] [address] Dr Beckwith [address], [place], [id number], [place] tel:[phone] [place] Venous insufficiency (chronic) (peripheral) 3 Caio OCONNOR FACS RVT SANDIP Jeffers. [address] [address], [place], [address], [place]. tel:[phone] Referring Provider: Nikia Kearney, [address] [place] [address], [address]. 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 [address] [facility], [address], [place], [place], [id number], [place]. tel:[phone] Referring Provider: Nikia Kearney, [address] [place] [address], [place], [address]. tel:[phone] [facility] MD DRUMMOND, [address] [place] [address] Dr Beckwith [address] 1000[place], [id number], [place] tel:[phone] [place] Encntr for f/u exam aft trtmt for cond oth than malig neoplmVenous insufficiency (chronic) (peripheral) 3 Caio OCONNOR FACS T SANDIP Jeffers. [address] [address], [place], [address], [place]. tel:[phone] Referring Provider: Nikia Kearney, [address] [place] [address], [place], [address]. tel:[phone] [facility] MD DRUMMOND, [address] [place] [address] Dr Beckwith [address] 1000[place], [id number], [place] tel:[phone] [place] Venous insufficiency (chronic) (peripheral) 3 Caio OCONNOR FACS T SANDIP Jeffers. [address] [address], [place], [address], [place]. tel:[phone] Referring Provider: Nikia Kearney, [address] [place] [address], [place], [address]. tel:[phone] Katia Espinoza Vein Mandaen MD DRUMMOND, [address] [place] [address] Dr Beckwith [address] 1000[place], [id number], [place] tel:[phone] [place] Venous insufficiency (chronic) (peripheral) 3 Caio OCONNOR FACS Marilee Jeffers. [address] [facility], [address], [place], [address], [place]. tel:[phone] Referring Provider: Nikia Rojas MD Caio, [address] [place] [address], [address]. tel:[phone] [facility], [address] [place] [address] [address], [id number], [place] tel:[phone] [place] No Information 3 Caio OCONNOR FACS Marilee Jeffers. [address] [place] [address], Suite [facility], [place], [address], [place]. tel:[phone] Referring Provider: Nikia Kearney, [address] [place] [address], [address]. tel:[phone] Katia Espinoza Vein Mandaen MD DRUMMOND, [address] [place] [address] [address] 1000[place], [id number], [place] tel:[phone] CVR - [facility] Varicose veins of right low extrm w oth complications 3 Caio OCONNOR FACS Marilee Jeffers. [address] [place] [address], [address], [place], [address], [place]. tel:[phone] Referring Provider: Nikia Kearney, [address] [place] [address], [place], [address]. tel:[phone] Katia Espinoza Vein Mandaen MD DRUMMOND, [address] [place] [address] Dr Beckwith [address] 1000[place], [id number], [place] tel:[phone] CVR - [facility] Encntr for f/u exam aft trtmt for cond oth than malig neoplmVenous insufficiency (chronic) (peripheral) 3 Caio OCONNOR FACS T RPNIRAV Jeffers. [address] [place] [address], [place], [address], [place]. tel:[phone] Referring Provider: Nikia Kearney, [address], [address]. tel:[phone] [facility], [address] [place] [address] [facility] [address] 1000[place], [id number], [place] tel:[phone] [place] Venous insufficiency (chronic) (peripheral) 3 Caio OCONNOR FACS Marilee NIRAV Jeffers. [address] [place] [address], [place], [address], [place]. tel:[phone] Referring Provider: Nikia Kearney, [address] [place] [address], [address]. tel:[phone] [facility], [address] [place] [address] [facility] [address], [place], [id number], [place] tel:[phone] [place] Venous insufficiency (chronic) (peripheral) 3 Ciao OCONNOR FACS Marilee NIRAV Jeffers. [address] [place] [address], [place], [address], [place]. tel:[phone] Referring Provider: Nikia Kearney, [address] [place] [address], [address]. tel:[phone] Family History Family Member Type Diagnosis Age [...]
== END 2025-01-09 11:22 | disposition home or self-care (01) ==
LOC: HO.HWS 10:54
PROVIDERS: PCP Internal Medicine; Visit Provider Obstetrics & Gynecology
DX: N83.299 Other ovarian cyst, unspecified side (principal)
CPT/HCPCS: 99213

== ENCOUNTER 2025-01-09 10:54 | Outpatient (REF) | payer OTHER, SELFPAY | END 2025-01-09 10:55 | disposition home or self-care (01) | LOC: HO.LNP 10:54 | PROVIDERS: PCP Internal Medicine; Visit Provider Obstetrics & Gynecology | DX: Z13.89 Encounter for screening for other disorder (principal) ==

== ENCOUNTER 2025-01-09 11:10 | Outpatient (REF) | payer OTHER, SELFPAY | END 2025-01-09 11:11 | disposition home or self-care (01) | LOC: HO.LAB 11:10 | PROVIDERS: Visit Provider Obstetrics & Gynecology | DX: Z13.89 Encounter for screening for other disorder (principal) ==

== ENCOUNTER 2025-03-23 10:51 | Outpatient (REF) | payer OTHER, SELFPAY ==
--- NOTE | ~2025-03-23 | US_ITS ---
EXAMINATION: US PELVIS TRANSABDOMINAL AND TRANSVAGINAL HISTORY: D25.9 - Leiomyoma of uterus, unspecified COMPARISON: Comparison is made with the prior examination dated 01/01/2025. TECHNIQUE: Transabdominal and endovaginal real-time 2D arreola-scale ultrasound was performed. FINDINGS: Uterus: The uterus is normal in size, measuring 10.7 x 6.2 x 5.9 cm. Myometrium has a normal echotexture. Again seen is a 2.7 x 1.9 x 2.8 cm fundal fibroid (previously 2.3 x 1.6 x 1.8 cm), and a 1.7 x 1.4 x 1.9 cm right-sided fibroid (previously 1.6 x 1.1 x 1.2 cm). Endometrium: The endometrial stripe measures 4 mm in thickness. Right ovary: The right ovary measures 3.9 x 3.6 x 3.9 cm. There is a 4.0 x 3.1 x 3.3 cm right ovarian cyst. Full evaluation is limited by patient body habitus. Left ovary: The left ovary is not visualized. Pelvic fluid: none. US/US pelvic and transvaginal IMPRESSION: 1. Interval increase in size of the previously noted fundal fibroid described above. 2. 4.0 x 3.1 x 3.3 cm right ovarian cyst. Follow-up is recommended. Electronically signed by: Chico Cheng MD 03/23/2025 12:15 PM EDT
== END 2025-03-23 10:52 | disposition home or self-care (01) ==
LOC: HO.US 10:51
PROVIDERS: PCP Internal Medicine; Visit Provider Obstetrics & Gynecology
DX: D25.9 Leiomyoma of uterus, unspecified (principal)
CPT/HCPCS: 76830; 76856

== ENCOUNTER → 2025-03-23 10:54 | Outpatient (BNV) | payer OTHER, SELFPAY | PROVIDERS: PCP Internal Medicine; Visit Provider Radiology Diagnostic Radiology | DX: D25.9 Leiomyoma of uterus, unspecified (principal); N83.291 Other ovarian cyst, right side | CPT/HCPCS: 76830; 76856 ==

== ENCOUNTER 2025-04-07 10:25 | Outpatient (AMB) | payer OTHER, SELFPAY ==
--- OUTSIDE RECORDS SUMMARY | 2023-06-13 11:00 | XMS_ITS | Continuity of Care Document ---
Author Organization [facility] Address [address] [place] [address] Phone Care Team Providers Care Tour Coordinator Name Role Phone Ha Staton Unavailable Unavailable [...] Diagnoses Date Provider Providers Copied on Encounter [place] [facility] MD DRUMMOND, [address] [place] [address] Dr Beckwith [address], [id number], tel:[phone] CVR - [place] - [place] Encounter for cosmetic surgery 3 Ady Bonner. [address] [address], [place], [place], [id number], [place]. tel:[phone] Referring Provider: Nikia Kearney, [address] [place] [address], [place], [address]. tel:[phone] [facility]ai MD DRUMMOND, [address] [place] [address] Dr Beckwith [address], [place], [id number], [place] tel:[phone] CVR - [place] Encounter for cosmetic surgery 3 Ady Bonner. [address] [address], [place], [place], [id number], [place]. tel:[phone] Referring Provider: Nikia Kearney, [address] [place] [address], [place], [address]. tel:[phone] Office/Outpt E&M Established 15 Mins [facility] MD DRUMMOND, [address] [place] [address] Dr Beckwith [address], [place], [id number], [place] tel:[phone] CVR [place] Venous insufficiency (chronic) (peripheral) 3 Caio COONNOR FACS RVT SANDIP Jeffers. [address] [address], [place], [address], [place]. tel:[phone] Referring Provider: Nikia Kearney, [address] [place] [address], [address]. 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 [address], [address], [place], [place], [id number], [place]. tel:[phone] Referring Provider: Nikia Kearney, [address] [place] [address], [place], [address]. tel:[phone] [facility] For [facility] Bahai MD DRUMMOND, [address] [place] [address] Dr Beckwith 1000[address] 1000[place], [id number], [place] tel:[phone] CVR [place] Encntr for f/u exam aft trtmt for cond oth than malig neoplmVenous insufficiency (chronic) (peripheral) 3 Caio OCONNOR FACS T SANDIP Jeffers. [address] [address], [place], [address], [place]. tel:[phone] Referring Provider: Nikia Kearney, [address] [place] [address], [place], [address]. tel:[phone] [facility] For Vein Bahai MD DRUMMOND, [address] [place] [address] Dr Beckwith 1000[address] 1000[place], [id number], [place] tel:[phone] CVR [place] Venous insufficiency (chronic) (peripheral) 3 Caio OCONNOR FACS T SANDIP Jeffers. [address] [address], [place], [address], [place]. tel:[phone] Referring Provider: Nikia Kearney, [address] [place] [address], [place], [address]. tel:[phone] Katia Espinoza Vein Bahai MD DRUMMOND, [address] [place] [address] Dr Beckwith 1000[address] 1000[place], [id number], [place] tel:[phone] CVR [place] Venous insufficiency (chronic) (peripheral) 3 Caio OCONNOR FACS Marilee Jeffers. [address] [facility], [address], [place], [address], [place]. tel:[phone] Referring Provider: Nikia Rojas MD Caio, [address] [place] [address], [address]. tel:[phone] [facility], [address] [place] [address] [address], [id number], [place] tel:[phone] CVR - [place] No Information 3 Caio OCONNOR FACS Marilee Jeffers. [address] [place] [address], Suite [facility], [place], [address], [place]. tel:[phone] Referring Provider: Nikia Kearney, [address] [place] [address], [address]. tel:[phone] Katia Espinoza Vein Bahai MD DRUMMOND, [address] [place] [address] [address], [id number], [place] tel:[phone] CVR - [facility] Varicose veins of right low extrm w oth complications 3 Caio OCONNOR FACS Marilee Jeffers. [address] [place] [address], [address], [place], [address], [place]. tel:[phone] Referring Provider: Nikia Kearney, [address] [place] [address], [place], [address]. tel:[phone] Katia Espinoza Vein Bahai MD DRUMMOND, [address] [place] [address] Dr Beckwith 1000[address] 1000[place], [id number], [place] tel:[phone] CVR - [facility] Encntr for f/u exam aft trtmt for cond oth than malig neoplmVenous insufficiency (chronic) (peripheral) 3 Caio OCONNOR FACS T RPNIRAV Jeffers. [address] [place] [address], [place], [address], [place]. tel:[phone] Referring Provider: Nikia Kearney, [address], [address]. tel:[phone] [facility], [address] [place] [address] [facility] 1000[address] 1000[place], [id number], [place] tel:[phone] CVR [place] Venous insufficiency (chronic) (peripheral) 3 Caio OCONNOR FACS Marilee NIRAV Jeffers. [address] [place] [address], [place], [address], [place]. tel:[phone] Referring Provider: Nikia Kearney, [address] [place] [address], [address]. tel:[phone] [facility], [address] [place] [address] [facility] [address], [place], [id number], [place] tel:[phone] CVR [place] Venous insufficiency (chronic) (peripheral) 3 Caio OCONNOR FACS Marilee NIRAV Jeffers. [address] [place] [address], [place], [address], [place]. tel:[phone] Referring Provider: Nikia Kearney, [address] [place] [address], [address]. tel:[phone] Family History Family Member Type Diagnosis Age [...]
--- NOTE | 2025-04-07 10:26 | A.OFFVIS_ITS ---
Intake Visit Reasons: ultrasound and medication follow up Allergies duloxetine (From CYMBALTA) Allergy (Intermediate, Verified 01/08/25 09:25) TONGUE SORES Influenza Virus Vaccines (INFLUENZA VIRUS VACCINES) Allergy (Intermediate, Verified 01/08/25 09:25) ARM SWELLING Sulfa (Sulfonamide Antibiotics) Adverse Reaction (Unknown, Verified 01/08/25 09:25) shaky feeling bactrim Allergy (Mild, Uncoded 01/08/25 09:25) Palpitations HPI Comments Details: The patient is scheduled a telehealth visit for ultrasound follow-up done in 04/06 which showed the following: Uterus: The uterus is normal in size, measuring 10.7 x 6.2 x 5.9 cm. Myometrium has a normal echotexture. Again seen is a 2.7 x 1.9 x 2.8 cm fundal fibroid (previously 2.3 x 1.6 x 1.8 cm), and a 1.7 x 1.4 x 1.9 cm right-sided fibroid (previously 1.6 x 1.1 x 1.2 cm). Endometrium: The endometrial stripe measures 4 mm in thickness. Right ovary: The right ovary measures 3.9 x 3.6 x 3.9 cm. There is a 4.0 x 3.1 x 3.3 cm right ovarian cyst. Full evaluation is limited by patient body habitus. Left ovary: The left ovary is not visualized. Pelvic fluid: none. US/US pelvic and transvaginal IMPRESSION: 1. Interval increase in size of the previously noted fundal fibroid described above. 2. 4.0 x 3.1 x 3.3 cm right ovarian cyst. Follow-up is recommended. 01/04 pelvic ultrasound showed the following: Uterus: The uterus is normal in size, measuring 9.0 x 4.9 x 6.4 cm. Myometrium has a normal echotexture. Again seen is a fundal fibroid measuring 2.3 x 1.6 x 1.8 cm (previously 3.1 x 3.0 x 2.3 cm), and a right-sided fibroid measuring 1.6 x 1.1 x 1.2 cm (previously 1.9 x 1.8 x 2.1 cm). Endometrium: The endometrial stripe measures 7 mm in thickness. There is an IUD which is low-lying in the lower uterine segment. Right ovary: The right ovary measures 2.9 x 2.4 x 1.9 cm. There is a 1.8 x 1.7 x 1.8 cm septated cyst demonstrating a tiny mural nodule. Left ovary: The left ovary is not identified. Pelvic fluid: none. 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 Lobular carcinoma in situ (LCIS) of right breast IBS (irritable bowel syndrome) Anxiety Surgical History H/O abdominoplasty (02/11/21) History of bilateral breast reduction surgery (07/21/20) History of dilatation and curettage (1999) History of tonsillectomy History of section Family History Mother History of breast cancer Mental health disorder Maternal Grandfather History of skin cancer Unknown History of breast cancer, Onset Age: 35 Paternal Grandmother Diabetes Social History Household Members: Spouse and Children Housing: House Alcohol intake: never Patient Tobacco Use Status: Former Tobacco user Years Smoked: 10 yrs e-Cigarette/Vaping Use: Never Used Second Hand Smoke Exposure: No service: No Current occupational status: employed 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 occupational exposures/hazards: No Sexual orientation: Straight/Heterosexual Gender identity: Female Cognitive needs: No Hearing needs: No Vision needs: Yes Female Reproductive History Menstrual Age of Menarche: 11 Review of Systems Const All systems reviewed & are unremarkable except as noted in HPI and below Reports as per HPI and Reports no additional complaints GI Reports no additional complaints Reports no additional complaints Telehealth Telehealth Telehealth Platform: [facility] Location of provider rendering services: practice address Location of patient: address on file Patient Identification confirmed using: Name, : Yes Telehealth method: video Patient verbally consented to treatment: Yes Patient verbally consented to billing insurance company: Yes Patient informed of any privacy concerns related to visit: Yes Minutes spent on Phone/Video with Pt.: 4 Assessment & Plan Assessment & Plan (1) Ovarian cyst: Code(s): N83.209 - Unspecified ovarian cyst, unspecified side Category: Medical Plan: Since evaluation of the ovarian cyst was limited by body habitus will repeat ultrasound in 6 weeks. Order placed (2) Uterine myoma: Code(s): D25.9 - Leiomyoma of uterus, unspecified Category: Medical Plan: Discussed with the patient the findings on pelvic ultrasound & the risk of myosarcoma; in addition reviewed with the patient that malignancy and pre malignancy cannot be ruled out without hysterectomy for pathological evaluation ; furthermore, explained to the patient the limitation of pelvic ultrasound and endometrial biopsy in the setting. Discussed with the patient the options of treatment including expectant management versus hysterectomy; the pros and cons, risks benefits of each approach were discussed with the patient including the fact that in cases of myosarcoma, surgical treatment can lead to early diagnosis and positively affects the prognosis; after further discussion, the patient decided to proceed with expectant management. Will repeat pelvic ultrasound periodically. Instructions given to patient to call in case any of the following occurs: pressure symptoms, abnormal uterine bleeding, pelvic pain; and to schedule a1 2- months pelvic ultrasound (order placed) and a follow-up appointment . All questions answered, the patient verbalized understanding and agreed with the plan . I spent a total of 20 minutes reviewing the chart, talking to the patient via video and documenting in the medical record. Orders: Orders US pelvic and transvaginal 6 Weeks N83.209 - Unspecified ovarian cyst, unspecified side US pelvic and transvaginal 12 Months D25.9 - Leiomyoma of uterus, unspecified Coding Level of Care Code Tele Est Pt Level 3 (15101) Diagnoses Ovarian cyst N83.209 Uterine myoma D25.9
--- OUTSIDE RECORDS SUMMARY | 2025-04-07 11:10 | XMS_ITS | Patient Health Record ---
Author Organization [facility] Address [address] [place] [id number] Care Team Providers Care Metrologist Name Role Phone Crystal OCONNOR, Nikia Primary Care Provider Nadir Jorgensen Jr Unavailable Allergies Allergen (clinical drug ingredient) Drug/Non Drug Allergy documented on EMR Reaction Allergy Type Onset Date Status duloxetine Cymbalta Unknown Drug Allergy Active sulfamethoxazole / trimethoprim Bactrim DS Unknown Drug Allergy Active Vaccine product containing Influenza virus antigen (medicinal product) flu shot (uncoded) Unknown Allergy Ac tive Reason For Referral No Information Medications Medication SIG (Take, Route, Fr equency, Duration) Notes Start Date End Date Status Dicyclomine HCl 10 MG TAKE 1 CAPSULE BY MOUTH 2 TO 4 TIMES DAILY Orally twice a day A ctive Venlafaxine HCl 75 MG 1 tablet with food Orally Once a day Active Dicyclomine HCl 10 TAKE 1 CAPSULE BY MO UTH 2 TO 4 TIMES DAILY Orally as directed for 90 Active Enpresse-28 - 1 tablet Orally Once a day Active Immunizations Vaccine Route Administration Date Status Comme nts Influenza Unknown 02/12/2019 Refused Social History Tobacco Use: Social History Observation Description Date Details (start date - stop date) Former Smoker NA - NA Tobacco Use/Smoking Question Answer Notes Patient is a former smoker How long has it been since you last smoked? > 10 years Problems Problem Type SNOMED Code ICD Code Onset Dates Problem Status W/U Status Risk Notes Problem [id number] Irritable bowel syndrome with diarrhea (K58.0) Active confirmed Plan Of Treatment No Information Insurance Providers Payer Name Payer Address Payer Phone Subscriber Number Group Number Insured Name Patient Relationship to Insured Coverage Start Date Coverage End Date [facility] [address] [facility] [place] [phone] [id number] ONDINA BELLO Self - patient is the insured Medical (General) History Medical History History ICD Code atrial fibrillation. anxiety. Denies [place],DM,CVA,Lung disease,renal dise ase Surgical History Surgery Date(Month/Year) section removal of foreign body right hand. benign breast lesion tonsillectomy
== END 2025-04-07 10:56 | disposition home or self-care (01) ==
LOC: HO.HWS 10:25
PROVIDERS: PCP Internal Medicine; Visit Provider Obstetrics & Gynecology
DX: N83.209 Unspecified ovarian cyst, unspecified side (principal); D25.9 Leiomyoma of uterus, unspecified
CPT/HCPCS: 99213

== ENCOUNTER 2025-05-27 13:17 | Outpatient (REF) | payer OTHER, SELFPAY ==
--- NOTE | ~2025-05-27 | US_ITS ---
EXAMINATION: US PELVIS CLINICAL INFORMATION: Uterine fibroid COMPARISON: Previous pelvic ultrasounds most recent December and March 2025 TECHNIQUE: Ultrasound of the pelvis is performed using both transabdominal and transvaginal transducers along with Doppler. Transvaginal imaging is performed due to inadequate visualization transabdominally. FINDINGS: Limited exam due to body habitus. Uterus: The uterus is anteverted and retroflexed measures 10.8 x 6.3 x 6.1 cm. The double wall endometrial thickness is 9 mm. No endometrial fluid or mass. There is a nabothian cyst in the cervix. There are 3 uterine fibroids. There is a 2.7 x 2.4 x 2.6 cm intramural left fundal fibroid. There is a 1.4 x 0.9 x 1.4 cm intramural right upper uterine body fibroid. These both do not appear appreciably changed. There is a newly appreciated 1.3 x 1.2 x 1.3 cm subserosal posterior uterine body fibroid. Adnexa: The ovaries are not seen. No adnexal mass. No fluid in the pelvis. US/US pelvic and transvaginal IMPRESSION: Limited exam. Three uterine fibroids seen, largest measuring 2.6 x 2.7 cm in the uterine fundus. Endometrial thickness measures 9 mm. No endometrial fluid or mass appreciated. Ovaries not seen. Electronically signed by: Yarelis Reynoso MD 05/27/2025 02:19 PM EDT
--- OUTSIDE RECORDS SUMMARY | 2025-05-27 16:56 | XMS_ITS | Patient Health Record ---
Author Organization [facility] Address [address] [place] [address] Care Team Providers Care Anger Control Counselor Name Role Phone Crystal OCONNOR, Nikia Primary [...] HCl 10 TAKE 1 CAPSULE BY MO UT 2 TO 4 TIMES DAILY Orally as directed; Duration: 90 Active Enpresse-28 - 1 tablet Orally [...] Problem Status W/U Status Risk Notes Problem Irritable bowel syndrome with diarrhea ([id number]) Irritable bowel syndrome with diarrhea (K58.0) Active confirmed Plan Of Treatment No Information Insurance Providers Payer Name Payer Address Payer Phone Subscriber Number Group Number Insured Name Patient Relationship to Insured Coverage Start Date Coverage End Date [facility] [address] [facility] [place] [id number] [id number] ONDINA BELLO Self - patient is the insured Medical (General) History Medical History History ICD Code atrial fibrillation. anxiety. Denies [place],DM,CVA,Lung disease,renal dise ase Surgical History Surgery Date(Month/Year) section removal of foreign body right hand. benign breast lesion tonsillectomy
== END 2025-05-27 13:18 | disposition home or self-care (01) ==
LOC: HO.US 13:17
PROVIDERS: PCP Internal Medicine; Visit Provider Obstetrics & Gynecology
DX: D25.9 Leiomyoma of uterus, unspecified (principal); N83.209 Unspecified ovarian cyst, unspecified side
CPT/HCPCS: 76830; 76856

== ENCOUNTER → 2025-05-27 13:19 | Outpatient (BNV) | payer OTHER, SELFPAY | PROVIDERS: PCP Internal Medicine; Visit Provider Radiology Diagnostic Radiology | DX: D25.2 Subserosal leiomyoma of uterus (principal) | CPT/HCPCS: 76830; 76856 ==

== ENCOUNTER 2025-06-10 08:08 | Outpatient (AMB) | payer OTHER, SELFPAY ==
--- NOTE | 2025-06-10 08:08 | A.OFFVIS_ITS ---
Intake Visit Reasons: ultrasound results Allergies duloxetine (From CYMBALTA) Allergy (Intermediate, Verified 01/08/25 09:25) TONGUE SORES Influenza Virus Vaccines (INFLUENZA VIRUS VACCINES) Allergy (Intermediate, Verified 01/08/25 09:25) ARM SWELLING Sulfa (Sulfonamide Antibiotics) Adverse Reaction (Unknown, Verified 01/08/25 09:25) shaky feeling bactrim Allergy (Mild, Uncoded 01/08/25 09:25) Palpitations HPI Comments Details: The patient is schedule telehealth visit for ultrasound follow-up because of limited evaluation of the ovaries. No complaints no pelvic pressure or pain abnormal uterine bleeding. 01/04 pelvic ultrasound showed right complex ovarian cyst 04/06 right ovarian simple cyst , full evaluation limited by visualization, left ovary not identified 06/06 bilateral ovaries not seen but no adnexal masses identified 06/06 pelvic ultrasound showed the following: Uterus: The uterus is anteverted and retroflexed measures 10.8 x 6.3 x 6.1 cm. The double wall endometrial thickness is 9 mm. No endometrial fluid or mass. There is a nabothian cyst in the cervix. There are 3 uterine fibroids. There is a 2.7 x 2.4 x 2.6 cm intramural left fundal fibroid. There is a 1.4 x 0.9 x 1.4 cm intramural right upper uterine body fibroid. These both do not appear appreciably changed. There is a newly appreciated 1.3 x 1.2 x 1.3 cm subserosal posterior uterine body fibroid. Adnexa: The ovaries are not seen. No adnexal mass. No fluid in the pelvis. 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 Lobular carcinoma in situ (LCIS) of right breast IBS (irritable bowel syndrome) Anxiety Surgical History H/O abdominoplasty (02/11/21) History of bilateral breast reduction surgery (07/21/20) History of dilatation and curettage (1999) History of tonsillectomy History of section Family History Mother History of breast cancer Mental health disorder Maternal Grandfather History of skin cancer Unknown History of breast cancer, Onset Age: 35 Paternal Grandmother Diabetes Social History Household Members: Spouse and Children Housing: House Alcohol intake: never Patient Tobacco Use Status: Former Tobacco user Years Smoked: 10 yrs e-Cigarette/Vaping Use: Never Used Second Hand Smoke Exposure: No service: No Current occupational status: employed 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 occupational exposures/hazards: No Sexual orientation: Straight/Heterosexual Gender identity: Female Cognitive needs: No Hearing needs: No Vision needs: Yes Female Reproductive History Menstrual Age of Menarche: 11 Review of Systems Const All systems reviewed & are unremarkable except as noted in HPI and below Reports as per HPI and Reports no additional complaints GI Reports no additional complaints Reports no additional complaints Telehealth Telehealth Telehealth Platform: [employer] [place] Location of provider rendering services: practice address Location of patient: address on file Patient Identification confirmed using: Name, : Yes Telehealth method: video Patient verbally consented to treatment: Yes Patient verbally consented to billing insurance company: Yes Patient informed of any privacy concerns related to visit: Yes Minutes spent on Phone/Video with Pt.: 7 Assessment & Plan Assessment & Plan (1) Uterine myoma: Code(s): D25.9 - Leiomyoma of uterus, unspecified Category: Medical Plan: Discussed with the patient the findings on pelvic ultrasound & the risk of myosa rcoma; in addition reviewed with the patient that malignancy and pre malignancy cannot be ruled out without hysterectomy for pathological evaluation ; furthermore, explained to the patient the limitation of pelvic ultrasound and endometrial biopsy in the setting. Discussed with the patient the options of treatment including expectant management versus hysterectomy; the pros and cons, risks benefits of each approach were discussed with the patient including the fact that in cases of myosarcoma, surgical treatment can lead to early diagnosis and positively affects the prognosis; after further discussion, the patient decided to proceed with expectant management. Will repeat pelvic ultrasound periodically. Instructions given to patient to call in case any of the following occurs: pressure symptoms, abnormal uterine bleeding, pelvic pain; and to schedule a six-months pelvic ultrasound (order placed) and a follow-up appointment . All questions answered, the patient verbalized understanding and agreed with the plan . (2) Ovarian cyst: Code(s): N83.209 - Unspecified ovarian cyst, unspecified side Category: Medical Plan: Since the patient had a complex ovarian cyst on previous ultrasound and ovaries were not visualized by ultrasound, recommended pelvic MRI. Pelvic MRI ordered. Instructions given the patient to schedule an MRI and a follow-up appointment within 2 weeks I spent a total of 20 minutes reviewing the chart, talking to the patient via video and documenting in the medical record. Orders: Orders MR pelvis wo/w con Today N83.209 - Unspecified ovarian cyst, unspecified side Coding Level of Care Code Tele Est Pt Level 3 (27108) Diagnoses Uterine myoma D25.9 Ovarian cyst N83.209
--- OUTSIDE RECORDS SUMMARY | 2025-06-10 08:19 | XMS_ITS | Patient Health Record ---
Author Organization [facility] Address [address] [place] [id number] Care Team Providers Care Resident Assistant Name Role Phone Crystal OCONNOR, Nikia Primary Care Provider Nadir Jorgensen Jr Unavailable [phone] Allergies Allergen (clinical drug ingredient) Drug/Non Drug [...] Notes Problem Irritable bowel syndrome with diarrhea (988909630) Irritable bowel syndrome with diarrhea (K58.0) Active confirmed Plan Of Treatment No Information Insurance Providers Payer Name Payer Address Payer Phone Subscriber Number Group Number Insured Name Patient Relationship to Insured Coverage Start Date Coverage End Date [facility] [address] [facility] [place] [phone] [id number] ONDINA BELLO Self - patient is the insured Medical (General) History Medical History History ICD Code atrial fibrillation. anxiety. Denies ME,DM,CVA,Lung disease,renal dise ase Surgical History Surgery Date(Month/Year) section removal of foreign body right hand. benign breast lesion tonsillectomy
== END 2025-06-10 08:48 | disposition home or self-care (01) ==
LOC: HO.HWS 08:08
PROVIDERS: PCP Internal Medicine; Visit Provider Obstetrics & Gynecology
DX: D25.9 Leiomyoma of uterus, unspecified (principal); N83.209 Unspecified ovarian cyst, unspecified side
CPT/HCPCS: 99213

== ENCOUNTER 2025-06-22 15:41 | Outpatient (AMB) | payer OTHER, SELFPAY ==
--- OUTSIDE RECORDS SUMMARY | 2023-06-13 10:00 | XMS_ITS | Continuity of Care Document ---
Author Organization [facility] Address [address] [place] [address] Phone Care Team Providers Care Teacher Visually Impaired Name Role Phone Ha Staton Unavailable Unavailable Allergies, Adverse Reactions, Alerts Substance Reaction Status Criticality FLU VIRUS VACC TVS (18 YR UP) CELL DERIVED Active No Information trimethoprim Active No Information sulfamethoxazole Active No Informat ion DULOXETINE HCL Active No Informatio n Medications Medication Instructions Dosage Effective Dates (start - stop) Status Comments venlafaxine ER 75 mg capsule,extended release 24 hr - Active lidocaine-prilocaine 2.5 %-2.5 % topical cream apply cream to affected leg and wrap with plastic wrap - Active Procedures Procedure Date No Charge For Services Sngl/mx Inj Scleros-veins; [place] Office/Outpt E&M Established 15 Mins December Inj Scleros Solut; Mx Veins 1 3 Duplex Scan-extrem Veins; Uni/ Endovenous Laser, 1st Vein Endovenous Laser, Vein Endovenous laser vein addon Inj Sclerosing Solution; Sngl 3 Duplex Scan-extrem Veins; Uni/ Endovenous Laser, 1st Vein Endovenous laser vein addon Endovenous Laser, 1st Vein Advance Directives Directive Yes / No Effective Date File Name No Information Encounters Encounter Description Practice Location Reason(s) For Visit Diagnoses Date Provider Providers Copied on Encounter [facility] MD DRUMMOND, [address] [place] [address] Dr Beckwith [address], [id number], tel:[phone] [facility] - [place] Encounter for cosmetic surgery 3 Ady Bonner. [address] [address], [place], [place], [id number], [place]. tel:[phone] Referring Provider: Nikia eKarney, [address] [place] [address], [place], [address]. tel:[phone] [facility] MD DRUMMOND, [address] [place] [address] Dr Beckwith [address], [place], [id number], [place] tel:[phone] [place] Encounter for cosmetic surgery 3 Ady Bonner. [address] [address], [place], [place], [id number], [place]. tel:[phone] Referring Provider: Nikia Kearney, [address] [place] [address], [place], [address]. tel:[phone] Office/Outpt E&M Established 15 Mins [facility] MD DRUMMOND, [address] [place] [address] Dr Beckwith [address], [place], [id number], [place] tel:[phone] [facility] [place] Venous insufficiency (chronic) (peripheral) 3 Caio OCONNOR FACS RVT SANDIP Jeffers. [address] [address], [place], [address], [place]. tel:[phone] Referring Provider: Nikia Kearney, [address] [place] [address], [address]. 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 [address] [facility], [address], [place], [place], [id number], [place]. tel:[phone] Referring Provider: Nikia Kearney, [address] [place] [address], [place], [address]. tel:[phone] [facility] MD DRUMMOND, [address] [place] [address] Dr Beckwith [address], [id number], [place] tel:[phone] [facility] - [place] Encntr for f/u exam aft trtmt for cond oth than malig neoplmVenous insufficiency (chronic) (peripheral) 3 Caio OCONNOR FACS T SANDIP Jeffers. [address] [address], [place], [address], [place]. tel:[phone] Referring Provider: Nikia Kearney, [address] [place] [address], [place], [address]. tel:[phone] [facility] MD DRUMMOND, [address] [place] [address] Dr Beckwith [address], [id number], [place] tel:[phone] CV[facility] - [place] Venous insufficiency (chronic) (peripheral) 3 Caio OCONNOR FACS T SANDIP Jeffers. [address] [address], [place], [address], [place]. tel:[phone] Referring Provider: Nikia Kearney, [address] [place] [address], [place], [address]. tel:[phone] [facility] MD DRUMMOND, [address] [place] [address] Dr Beckwith 1000[address] 1000[place], [id number], [place] tel:[phone] CV[facility] - [place] Venous insufficiency (chronic) (peripheral) 3 Caio OCONNOR FACS Marilee Jeffers. [address] [facility], [address], [place], [address], [place]. tel:[phone] Referring Provider: Nikia Rojas MD Caio, [address] [place] [address], [address]. tel:[phone] [facility], [address] [place] [address] [address], [id number], [place] tel:[phone] CVR - [place] - [place] No Information 3 Caio OCONNOR FACS Marilee Jeffers. [address] [place] [address], Suite [facility], [place], [address], [place]. tel:[phone] Referring Provider: Nikia Kearney, [address] [place] [address], [address]. tel:[phone] [facility] MD DRUMMOND, [address] [place] [address] [address], [id number], [place] tel:[phone] CVR - [facility] Varicose veins of right low extrm w oth complications 3 Caio OCONNOR FACS Marilee Jeffers. [address] [place] [address], [address], [place], [address], [place]. tel:[phone] Referring Provider: Nikia Kearney, [address] [place] [address], [place], [address]. tel:[phone] [facility] MD DRUMMOND, [address] [place] [address] Dr Beckwith 1000[address] 1000[place], [id number], [place] tel:[phone] CVR - [facility] Encntr for f/u exam aft trtmt for cond oth than malig neoplmVenous insufficiency (chronic) (peripheral) 3 Caio OCONNOR FACS T RPNIRAV Jeffers. [address] [place] [address], [place], [address], [place]. tel:[phone] Referring Provider: Nikia Kearney, [address], [address]. tel:[phone] [facility], [address] [place] [address] [facility] 1000[address] 1000[place], [id number], [place] tel:[phone] CV[place] - [place] Venous insufficiency (chronic) (peripheral) 3 Caio OCONNOR FACS Marilee NIRAV Jeffers. [address] [place] [address], [place], [address], [place]. tel:[phone] Referring Provider: Nikia Kearney, [address] [place] [address], [address]. tel:[phone] [facility], [address] [place] [address] [facility] [address], [place], [id number], [place] tel:[phone] CV[place] - [place] Venous insufficiency (chronic) (peripheral) 3 Caio OCONNOR FACS Marliee NIRAV Jeffers. [address] [place] [address], [place], [address], [place]. tel:[phone] Referring Provider: Nikia Kearney, [address] [place] [address], [address]. tel:[phone] Family History Family Member Type Diagnosis Age At Onset No Information Payers Payer name Insurance type Covered republican ID Authoriza tion(s) Self Pay 09 Social History Type Description Quantity Date Captured Comments Alcohol Use Details No Caffeine Use Details Unknown Tobacco Use Status Never smoked tobacco 2022 Smoking Status Never smoker Non-Smoking Tobacco Use Details : No Details Available : No Details Available Sex Female Chief Complaint And Reason For Visit No Information Reason For Referral Reason For Referral No Information History Of Present Illness Encounter Date Complaint History Of Prese nt Illness No Information Functional Status Date Functional Assessmen t No Information Instructions Date Instruction Additional Infor mation Continue compression stocking us e Related to Encounter for Cosmetic Surgery Patient education booklet given Related to Encounter for Cosmetic Surgery Patient education booklet given Related to Venous Insufficiency (Chronic / Peripheral) Assessments Type Assessment Date assessment Encounter for cosmetic surgery N Patient Care Teams Name Effective Dates (start - stop) Status Members No Information
--- NOTE | 2025-06-22 15:43 | MHC.OFFVIS ---
Vital Signs 06/22/25 15:51 Height 5 ft 6 in Weight 185 lb 2 oz BMI 29.9 BP 127/75 Blood Pressure Location Lt brachial Position Sitting Pulse 91 Intake Visit Reasons: 6 month breast exam Intake Note: Patient is seen in office for 6 month follow up visit, breast exam. Pt c/o: denies any concerns or changes mm sched:08/12/25 @ 10am Plastic Duplicator Required: No Emergency Management Director: Emergency Management Director Present Accompanied by: Self / Same As Patient Allergies duloxetine (From CYMBALTA) Allergy (Intermediate, Verified 06/22/25 15:51) TONGUE SORES Influenza Virus Vaccines (INFLUENZA VIRUS VACCINES) Allergy (Intermediate, Verified 06/22/25 15:51) ARM SWELLING Sulfa (Sulfonamide Antibiotics) Adverse Reaction (Unknown, Verified 06/22/25 15:51) shaky feeling bactrim Allergy (Mild, Uncoded 06/22/25 15:51) Palpitations Medication List - Last Reconciled 06/23/25 by Romaine Diane MD biotin 250 mcg PO DAILY cholecalciferol (vitamin D3) 25 mcg PO DAILY multivitamin 1 tab PO DAILY valacyclovir (Valtrex) 2,000 mg (2 x 1 gram) PO Q12H PRN venlafaxine ER 75 mg PO DAILY HPI Comments Details: 49-year-old female patient, former patient of Dr. Maria returning for high risk breast examination. She has a prior history of LCIS of the right breast and subsequently underwent a right breast lumpectomy with needle localization on 06/30/2020. Pathology revealed benign breast tissue with biopsy site changes, fibrocystic change and focal pseudoangiomatous hyperplasia. No residual lobular neoplasm is seen; no carcinoma seen. She declined endocrine therapy for risk reduction as well as yearly breast MRIs due to anxiety. She underwent bilateral breast reduction surgery by Dr. Soni and tolerated this procedure well. She denies any current symptoms in the breasts and generally feels well. Her most recent mammogram dated 08/11/2024 revealed no mammographic evidence of malignancy (BI-RADS 2). She underwent a screening ultrasound of bilateral breast on 10/24/2024 which also revealed no sonographic evidence of malignancy (BI-RADS 1). Previously calculated Tyrer-Cuzick remaining lifetime risk of breast cancer was calculated at 30%. She is scheduled for her annual mammogram on 08/12/2025. 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 Lobular carcinoma in situ (LCIS) of right breast IBS (irritable bowel syndrome) Anxiety Surgical History H/O abdominoplasty (02/11/21) History of bilateral breast reduction surgery (07/21/20) History of dilatation and curettage (1999) History of tonsillectomy History of section Family History Mother History of breast cancer Mental health disorder Maternal Grandfather History of skin cancer Unknown History of breast cancer, Onset Age: 35 Paternal Grandmother Diabetes Social History Household Members: Spouse and Children Housing: House Alcohol intake: never Patient Tobacco Use Status: Former Tobacco user Years Smoked: 10 yrs e-Cigarette/Vaping Use: Never Used Second Hand Smoke Exposure: No service: No Current occupational status: employed 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 occupational exposures/hazards: No Sexual orientation: Straight/Heterosexual Gender identity: Female Cognitive needs: No Hearing needs: No Vision needs: Yes Female Reproductive History Menstrual Age of Menarche: 11 Review of Systems Const All systems reviewed & are unremarkable except as noted in HPI and below Physical Exam Vital Signs: Last Vital Signs Pulse 91 06/22/25 15:51 BP 127/75 06/22/25 15:51 BMI result Body Mass Index 29.9 Const General: cooperative, healthy appearing, comfortable and no acute distress HEENT Head: Yes normocephalic and Yes atraumatic Neck Neck: Yes trachea midline and Yes supple Lymphatic: no lymphadenopathy noted Chest Other: Bilateral reduction mammoplasty incisions. Right breast with no new skin change, nipple discharge, nipple retraction, palpable mass, or enlarged lymph nodes. Left breast with no skin change other than as noted above at the 06:00 o'clock location, no nipple discharge, nipple retraction, palpable mass, or enlarged lymph nodes. GI Other: Palpable fullness in the lower abdomen consistent with a postoperative rectus hematoma. Well-healed abdominoplasty incisions without evidence of infection or ecchymosis. Inspection: Yes normal to inspection Skin Other: warm, dry, no rash Neuro Other: Mobility Assessment: 1. 3 meter assessment time (seconds) 5 2. Gait observations: Normal balance and gait Extrem General: Yes no clubbing, cyanosis or edema Assessment & Plan Assessment & Plan (1) Lobular carcinoma in situ (LCIS) of right breast: Code(s): D05.01 - Lobular carcinoma in situ of right breast Category: Medical Plan 49-year-old female patient with history of LCIS and Pash determined to be at high risk for breast cancer. Examination today reveals no new suspicious findings in either breast. Her most recent mammogram of 08/11/2024 revealed no mammographic evidence of malignancy (BI-RADS 2). Ultrasound of 10/24/2024 also revealed no suspicious findings in either breast (BI-RADS 1). She is scheduled for her annual mammogram at the [facility] on 08/12/2025. I recommended follow-up examination in 6 months' time, sooner p.r.n.. Coding Level of Care Code Est Pt Level 3 (25757) Complex EM visit Add On G2211 Diagnoses Lobular carcinoma in situ (LCIS) of right breast D05.01
[2025-06-22 15:51] VITALS: BP 127/75; PULSE 91; BMI 29.9
== END 2025-06-22 16:05 | disposition home or self-care (01) ==
LOC: HO.HGS 15:42
PROVIDERS: PCP Internal Medicine; Visit Provider Surgery
DX: D05.01 Lobular carcinoma in situ of right breast (principal)
CPT/HCPCS: 99213; G2211

== ENCOUNTER 2025-06-28 15:27 | Outpatient (REF) | payer OTHER, SELFPAY ==
--- NOTE | ~2025-06-28 | MR_ITS ---
EXAMINATION: MR PELVIS WITHOUT AND WITH CONTRAST CLINICAL INFORMATION: N83.299. COMPARISON: Correlated to pelvic ultrasound dated May 27, 2025, March 23, 2025, August 08, [address] abdomen and pelvis dated July 29, [address] pelvis dated May 20, 2021. TECHNIQUE: Coronal T2 HASTE sequences. Sagittal T2 sequence. Axial T2 fat-sat uterus sequence. Coronal T2 uterus. Axial T1 sequence. Axial T1 VIBE 3 and post contrast. Total of 8.0 cc of gadolinium based (Gadavist) without reported immediate complications. FINDINGS: Uterus measures 12 x 6 x 6 cm. Heterogeneous nodular enhancing uterus. Multiple heterogeneously enhancing mixed signal characteristic nodular lesions throughout the myometrium, the largest measures 3 cm in the fundus. The junctional zone is not fully evaluated measures 4 mm in maximum thickness. The cervix measures 4 cm. There is a 1.3 cm nonenhancing fluid signal characteristic lesion in the posterior cervix. The uterus is in anteversion flexion position. There is a paramagnetic field distortion secondary to a round/elliptic hypointense signal in all sequences foreign body surrounded the pelvic floor/cervix. There is a 3 x 2.5 x 2.4 cm structure in the posterior aspect of this foreign body at 7:00 position which appears to the kidneys this structure. There is a well-defined, rounded, nonseptated, thin capsulated, nonenhancing, 4.0 x 3.4 x 4.0 cm fluid signal accredited lesion in the right lower pelvis/right adnexa. The left ovary is not in the left lower pelvis. No free fluid in the cul-de-sac. Bladder is fluid-filled nearly collapsed. There are a few diverticula in the rectosigmoid colon junction. There is no intestinal dilatation. Normal flow void signal in the main vessels. Fatty bone marrow of the sacrococcyx. No lymphadenopathy, inguinal or perihilar iliac. Degenerative changes in the sacroiliac joints. Bone marrow inhomogeneity throughout the bony pelvis and the proximal appendicular skeleton of the lower extremity. Paramagnetic field distortion secondary to metallic structure in the left abdominal rectus muscle. There is enhancement of the greater trochanters of the right and to a lesser extent left femur. MR/MR pelvis wo/w con IMPRESSION: [Leiomyomata uterine, largest 3 cm in the fundus. 4.0 x 3.4 x 4.0 cm simple cyst, right ovary. Probable status pessary procedure likely engulfing the left ovary at 7:00 position. Probable 1.3 cm nabothian cyst. Concerning trochanteric bursitis. Diverticular disease, rectosigmoid colon junction. Osteopenia versus osteoporosis. Electronically signed by: Berlin Morris MD 06/29/2025 08:59 AM [facility]
--- OUTSIDE RECORDS SUMMARY | 2025-06-28 15:35 | XMS_ITS | Patient Health Record ---
Author Organization [facility] Address [address] [place] [id number] Care Team Providers Care Watch Repairer Name Role Phone Crystal OCONNOR, Nikia Primary Care Provider Nadir Jorgensen Jr [phone] Allergies Allergen (clinical drug ingredient) Drug/Non Drug Allergy documented on EMR Reaction Allergy Type Onset Date Status Vaccine product containing Influenza virus antigen (medicinal product) flu shot (uncoded) Unknown Allergy Ac tive sulfamethoxazole / trimethoprim Bactrim DS Unknown Drug Allergy Active duloxetine Cymbalta Unknown Drug Allergy Active Reason For Referral No Information Medications Medication SIG (Take, Route, Frequency, Duration) Notes Start Date End Date Status Dicyclomine HCl 10 MG capsule TAKE 1 CAPSULE BY MOUTH 2 TO 4 TIMES DAILY Orally twice a day Active Venlafaxine HCl 75 MG Tablet 1 tablet with food Orally Once a day Active Dicyclomine HCl 10 capsule TAKE 1 CAPSUL E BY MOUTH 2 TO 4 TIMES DAILY Orally as directed; Duration: 90 Active Enpresse-28 - Tablet 1 tablet Orally Onc e a day Active Immunizations Vaccine Route Administration Date Status Comme nts Influenza Unknown 02/12/2019 Refused Social History Tobacco Use: Social History Observation Description Date Details (start date - stop date) Former Smoker NA - NA Social History Tobacco Use: Social Info Question Answer Notes Tobacco Use/Smoking Patient is a former smoker How long has it been since you last smoked? 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 Problems Problem Type SNOMED Code ICD Code Onset Dates Problem Status W/U Status Risk Notes Problem Irritable bowel syndrome with diarrhea ([id number]) Irritable bowel syndrome with diarrhea (K58.0) Active confirmed Plan Of Treatment No Information Insurance Providers Payer Name Payer Address Payer Phone Subscriber Number Group Number Insured Name Patient Relationship to Insured Coverage Start Date Coverage End Date [facility] [address] [facility] [place] [phone] [id number] ONDINA BELLO Self - patient is the insured Medical (General) History Medical History History ICD Code atrial fibrillation. anxiety. Denies ID,DM,CVA,Lung disease,renal dise ase Surgical History Surgery Date(Month/Year) section removal of foreign body right hand. benign breast lesion tonsillectomy
== END 2025-06-28 15:28 | disposition home or self-care (01) ==
LOC: HO.MRI 15:27
PROVIDERS: PCP Internal Medicine; Visit Provider Obstetrics & Gynecology
DX: N83.209 Unspecified ovarian cyst, unspecified side (principal)
CPT/HCPCS: 72197; A9585

== ENCOUNTER → 2025-06-28 15:33 | Outpatient (BNV) | payer OTHER, SELFPAY | PROVIDERS: PCP Internal Medicine; Visit Provider Radiology Diagnostic Radiology | DX: N83.201 Unspecified ovarian cyst, right side (principal); K57.30 Diverticulosis of large intestine without perforation or abscess without bleeding | CPT/HCPCS: 72197 ==

== ENCOUNTER 2025-07-06 12:07 | Outpatient (AMB) | payer OTHER, SELFPAY ==
--- OUTSIDE RECORDS SUMMARY | 2023-06-13 10:00 | XMS_ITS | Continuity of Care Document ---
Author Organization [facility] Address [address] [place] [address] Phone Care Team Providers Care Physician Practice Consultant Name Role Phone Ha Staton Unavailable Unavailable [...] Diagnoses Date Provider Providers Copied on Encounter [facility] MD DRUMMOND, [address] [place] [address] Dr Beckwith 1000[address] 1000[place], [id number], tel:[phone] [facility] - [place] Encounter for cosmetic surgery 3 Ady Bonner. [address] [address], [place], [place], [id number], [place]. tel:[phone] Referring Provider: Nikia Kearney, [address] [place] [address], [place], [address]. tel:[phone] [facility] MD DR[place], [address] [place] [address] Dr Beckwith [address], [place], [id number], [place] tel:[phone] CV[place] - [place] Encounter for cosmetic surgery 3 Ady Bonner. [address] [address], [place], [place], [id number], [place]. tel:[phone] Referring Provider: Nikia Kearney, [address] [place] [address], [place], [address]. tel:[phone] Office/Outpt E&M Established 15 Mins [facility] MD DR[place]MOND, [address] [place] [address] Dr Beckwith [address], [place], [id number], [place] tel:[phone] [facility] - [place] Venous insufficiency (chronic) (peripheral) 3 Ciao OCONNOR FACS RVT SANDIP Jeffers. [address] [address], [place], [address], [place]. tel:[phone] Referring Provider: Nikia Kearney, [address] [place] [address], [address]. 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 [address] [facility], [address], [place], [place], [id number], [place]. tel:[phone] Referring Provider: Nikia Kearney, [address] [place] [address], [place], [address]. tel:[phone] [facility] MD DRUMMOND, [address] [place] [address] Dr Beckwith 1000[address] 1000[place], [id number], [place] tel:[phone] [place] Encntr for f/u exam aft trtmt for cond oth than malig neoplmVenous insufficiency (chronic) (peripheral) 3 Caio OCONONR FACS T SANDIP Jeffers. [address] [address], [place], [address], [place]. tel:[phone] Referring Provider: Nikia Kearney, [address] [place] [address], [place], [address]. tel:[phone] [facility] MD DR[place]MOND, [address] [place] [address] Dr Beckwith 1000[address] 1000[place], [id number], [place] tel:[phone] [place] - [place] Venous insufficiency (chronic) (peripheral) 3 Caio OCONNOR FACS T SANDIP Jeffers. [address] [address], [place], [address], [place]. tel:[phone] Referring Provider: Nikia Kearney, [address] [place] [address], [place], [address]. tel:[phone] [facility] MD DR[place], [address] [place] [address] Dr Beckwith 1000[address] 1000[place], [id number], [place] tel:[phone] [facility] - [place] Venous insufficiency (chronic) (peripheral) 3 Caio OCONNOR FACS Marilee Jeffers. [address] [facility], [address], [place], [address], [place]. tel:[phone] Referring Provider: Nikia Rojas MD Caio, [address] [place] [address], [address]. tel:[phone] [facility], [address] [place] [address] [address] 1000[place], [id number], [place] tel:[phone] CV[place] - [place] No Information 3 Caio OCONNOR FACS Marilee Jeffers. [address] [place] [address], [address], [place], [address], [place]. tel:[phone] Referring Provider: Nikia Kearney, [address] [place] [address], [address]. tel:[phone] [facility] MD DR[place], [address] [place] [address] [address] 1000[place], [id number], [place] tel:[phone] CVR - [facility] Varicose veins of right low extrm w oth complications 3 Caio OCONNOR FACS Marilee eJffers. [address] [place] [address], [address], [place], [address], [place]. tel:[phone] Referring Provider: Nikia Kearney, [address] [place] [address], [place], [address]. tel:[phone] [facility] MD [place], [address] [place] [address] Dr Beckwith 1000[address] 1000[place], [id number], [place] tel:[phone] CVR - [facility] Encntr for f/u exam aft trtmt for cond oth than malig neoplmVenous insufficiency (chronic) (peripheral) 3 Caio OCONNOR FACS T RPNIRAV Jeffers. [address] [place] [address], [place], [address], [place]. tel:[phone] Referring Provider: Nikia Kearney, [address], [address]. tel:[phone] [facility], [address] [place] [address] [facility] 1000[address] 1000[place], [id number], [place] tel:[phone] CV[place] - [place] Venous insufficiency (chronic) (peripheral) 3 Caio OCONNOR FACS Marilee NIRAV Jeffers. [address] [place] [address], [place], [address], [place]. tel:[phone] Referring Provider: Nikia Kearney, [address] [place] [address], [address]. tel:[phone] [facility], [address] [place] [address] [facility] [address], [place], [id number], [place] tel:[phone] CV[place] - [place] Venous insufficiency (chronic) (peripheral) 3 Caio OCONNOR FACS Marilee NIRAV Jeffers. [address] [place] [address], [place], [address], [place]. tel:[phone] Referring Provider: Nikia Kearney, [address] [place] [address], [address]. tel:[phone] Family History Family Member Type Diagnosis Age At Onset No Information Payers Payer name Insurance type Covered alliance party ID Authoriza tion(s) Self Pay 09 Social [...] No Information Instructions Date Instruction Additional Infor mattrini Patient education booklet given Related to Encounter for Cosmetic Surgery Continue compression stocking us e Related to Encounter for Cosmetic Surgery Patient education booklet given Related to Venous Insufficiency (Chronic / Peripheral) Assessments Type Assessment Date assessment Encounter for cosmetic surgery N Patient Care Teams Name Effective Dates (start - stop) Status Members No Information
--- NOTE | 2025-07-06 12:07 | A.OFFVIS_ITS ---
Intake Visit Reasons: MRI results Allergies duloxetine (From CYMBALTA) Allergy (Intermediate, Verified 06/22/25 15:51) TONGUE SORES Influenza Virus Vaccines (INFLUENZA VIRUS VACCINES) Allergy (Intermediate, Verified 06/22/25 15:51) ARM SWELLING Sulfa (Sulfonamide Antibiotics) Adverse Reaction (Unknown, Verified 06/22/25 1 5:51) shaky feeling bactrim Allergy (Mild, Uncoded 06/22/25 15:51) Palpitations HPI Comments Details: The patient is scheduled a telehealth visit post pelvic MRI regarding right ovarian cyst seen by pelvic ultrasound in 04/06 that was not fully evaluated due to limited views, repeat pelvic ultrasound in 06/06, was limited and both o varies were not seen Pelvic MRI showed the following: IMPRESSION: [Leiomyomata uterine, largest 3 cm in the fundus. 4.0 x 3.4 x 4.0 cm simple cyst, right ovary. Probable status pessary procedure likely engulfing the left ovary at 7:00 position. Probable 1.3 cm nabothian cyst. Concerning trochanteric bursitis. Diverticular disease, rectosigmoid colon junction. Osteopenia versus osteoporosis. 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 Lobular carcinoma in situ (LCIS) of right breast IBS (irritable bowel syndrome) Anxiety Surgical History H/O abdominoplasty (02/11/21) History of bilateral breast reduction surgery (07/21/20) History of dilatation and curettage (1999) History of tonsillectomy History of section Family History Mother History of breast cancer Mental health disorder Maternal Grandfather History of skin cancer Unknown History of breast cancer, Onset Age: 35 Paternal Grandmother Diabetes Social History Household Members: Spouse and Children Housing: House Alcohol intake: never Patient Tobacco Use Status: Former Tobacco user Years Smoked: 10 yrs e-Cigarette/Vaping Use: Never Used Second Hand Smoke Exposure: No service: No Current occupational status: employed 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 occupational exposures/hazards: No Sexual orientation: Straight/Heterosexual Gender identity: Female Cognitive needs: No Hearing needs: No Vision needs: Yes Female Reproductive History Menstrual Age of Menarche: 11 Review of Systems Const All systems reviewed & are unremarkable except as noted in HPI and below Reports as per HPI and Reports no additional complaints GI Reports no additional complaints Reports no additional complaints Telehealth Telehealth Telehealth Platform: MyTrainer Location of provider rendering services: practice address Location of patient: address on file Patient Identification confirmed using: Name, : Yes Telehealth method: video Patient verbally consented to treatment: Yes Patient verbally consented to billing insurance company: Yes Patient informed of any privacy concerns related to visit: Yes Minutes spent on Phone/Video with Pt.: 5 Assessment & Plan Assessment & Plan (1) Ovarian cyst: Code(s): N83.209 - Unspecified ovarian cyst, unspecified side Category: Medical Plan: Discussed with the patient the finding on MRI showing a right ovarian simple cyst with no evidence of abnormal findings, the patient was reassured (2) Uterine myoma: Code(s): D25.9 - Leiomyoma of uterus, unspecified Category: Medical Plan: Discussed with the patient the finding on MRI, uterine myoma. Counseling re garding myomas options of treatment were discussed with the patient in 04/06 and the plans proceed with expectant management with repeat ultrasound periodically. I spent a total of 20 minutes reviewing the chart, talking to the patient via video and documenting in the medical record. (3) Abnormal MRI: Comment: Concerning trochanteric bursitis. Diverticular disease, rectosigmoid colon junction. Osteopenia versus osteoporosis. Code(s): R93.89 - Abnormal findings on diagnostic imaging of other specified body structures Category: Medical Plan: Discussed with the patient the finding of osteopenia versus osteoporosis will order DEXA scan to screen for osteoporosis given this abnormal finding, also discussed with the patient the trochanteric bursitis and difficult degrees found on MRI recommended to the patient to call her PCP and discuss the finding for further management. Coding Level of Care Code Tele Est Pt Level 3 (54588) Diagnoses Ovarian cyst N83.209 Uterine myoma D25.9 Abnormal MRI R93.89
== END 2025-07-06 12:51 | disposition home or self-care (01) ==
LOC: HO.HWS 12:07
PROVIDERS: PCP Internal Medicine; Visit Provider Obstetrics & Gynecology
DX: N83.209 Unspecified ovarian cyst, unspecified side (principal); D25.9 Leiomyoma of uterus, unspecified; R93.89 Abnormal findings on diagnostic imaging of other specified body structures
CPT/HCPCS: 99213

== ENCOUNTER 2025-08-12 10:24 | Outpatient (REF) | payer OTHER, SELFPAY ==
--- NOTE | ~2025-08-12 | MM_ITS ---
EXAMINATION: MM SCREENING DIGITAL BREAST TOMOSYNTHESIS, BILATERAL CLINICAL INFORMATION: Screening. Asymptomatic. COMPARISON: Mammography: Comparison is made with available priors TECHNIQUE: Digital breast mammography with tomosynthesis is performed in both the craniocaudal and mediolateral oblique views along with computer-aided detection (CAD). FINDINGS: The breasts are heterogeneously dense, which may obscure small masses. There are no significant masses, abnormal calcifications, or other abnormalities. MM/MM tomosynthesis screening BI IMPRESSION: No mammographic evidence of malignancy. ASSESSMENT: BI-RADS Category 1: Negative RECOMMENDATION: Routine annual mammography screening. 1 year F/U This examination should not preclude the clinical evaluation of a suspicious palpable abnormality. This patient's information was entered into a reminder system with a target due date for their next mammogram. Electronically signed by: Batsheva Medellin DO 08/14/2025 05:30 PM [facility]
--- OUTSIDE RECORDS SUMMARY | 2025-08-12 11:36 | XMS_ITS | Patient Health Record ---
Author Organization [facility] Address [address] [place] [id number] Care Team Providers Care Dye Box Operator Name Role Phone Crystal OCONNOR, Nikia Primary Care Provider Nadir Jorgensen Jr [phone] Allergies Allergen (clinical drug ingredient) Drug/Non [...] Notes Problem Irritable bowel syndrome with diarrhea ([id number]) Irritable bowel syndrome with diarrhea (K58.0) Active confirmed Plan Of Treatment No Information Insurance Providers Payer Name Payer Address Payer Phone Subscriber Number Group Number Insured Name Patient Relationship to Insured Coverage Start Date Coverage End Date [facility] [address] [facility] [place] [phone] [id number] ONDINA BELLO Self - patient is the insured Medical (General) History Medical History History ICD Code atrial fibrillation. anxiety. Denies [place],DM,CVA,Lung disease,renal dise ase Surgical History Surgery Date(Month/Year) section removal of foreign body right hand. benign breast lesion tonsillectomy
== END 2025-08-12 10:25 | disposition home or self-care (01) ==
LOC: HO.MAMMO 10:24
PROVIDERS: PCP Internal Medicine; Visit Provider Internal Medicine
DX: Z12.31 Encounter for screening mammogram for malignant neoplasm of breast (principal)
CPT/HCPCS: 77063; 77067

== ENCOUNTER → 2025-08-12 10:30 | Outpatient (BNV) | payer OTHER, SELFPAY | PROVIDERS: PCP Internal Medicine; Visit Provider Internal Medicine | DX: Z12.31 Encounter for screening mammogram for malignant neoplasm of breast (principal) | CPT/HCPCS: 77063; 77067 ==